=== PATIENT | female | born 1960 | race Caucasian/White ===

== ENCOUNTER 2017-03-28 11:55 | Outpatient (RCR) | payer BC, MEDICARE ==
[2016-01-11 12:16] VITALS: Ht 170.2 cm; Wt 68.3 kg
[2017-03-11 10:35] VITALS: BP 129/59
--- NOTE | 2017-03-13 11:41 | ONCOLOGY FOLLOW UP NOTE ---
EVENT DATE: March 11, 2017 DIAGNOSES 1. Pancytopenia. 2. Microcytic anemia. 3. Thrombocytopenia. 4. Systemic lupus erythematosus/rheumatoid arthritis. 5. Seizure disorder. 6. Hypothyroidism. 7. History of deep venous thrombosis and pulmonary embolis. CHIEF COMPLAINT Patient is here today for followup of her pancytopenia and iron deficiency. HEMATOLOGY HISTORY Juan Jose Lin is a 55-year-old female who has been diagnosed with systemic lupus/rheumatoid arthritis for the last fifteen years. The patient is aware she is anemic for the last year. She received iron supplement in the past without improvement. Her blood count on April 26, 2014 did reveal a white count of 3.6, hemoglobin 9.2, hematocrit 32, MCV 72.2 and platelets 99,000. Her creatinine is normal at 0.6. The patient currently is maintained on Plaquenil, methotrexate and Orencia. Iron studies showed a serum ferritin of 52 , within the normal range; serum iron 37; TIBC 311; iron saturation 11.9. Erythropoietin was a little high at 29, which is low for the degree of the anemia. Vitamin B12 level, methylmalonic acid assay, folate level, and red cell folate, all within normal range. Serum protein electrophoresis showed normal pattern. ESR was normal at 18. CBC showed a white count 2.9, hemoglobin 10.9, hematocrit 35.9, platelets 107,000. Soluble transferrin receptor assay came back high at 6.7 confirming he diagnosis of iron deficiency anemia. Flow cytometry of the peripheral blood did reveal mature T cells that show coag suppression of CD4 and CD8 which has uncertain significance as it is only 4% of the cells have this coag suppression and it could be present in 50% of otherwise healthy individuals. Ultrasound of spleen done on July 15, 2014 showed mild splenomegaly and splenic size was 14.5 cm. No splenic mass or perisplenic fluid collections. Bone marrow aspiration biopsy for evaluation of the pancytopenia done on December 04, 2014 did show normocellular bone marrow with cellularity 40-45% with megakaryocytic hyperplasia with ITP-like cytologic features. There is active normoblastic erythropoiesis and ongoing granulopoiesis with no dysmaturation and/or excess of blasts. There is mild polyclonal plasmocytosis. There is trace of reduced iron stores with no ringed sideroblast. No evidence of granulomas or metastatic neoplasm. HISTORY OF PRESENT ILLNESS Patient is here today for followup of her pancytopenia and iron deficiency anemia. She is doing fine currently. She has some occasional nausea and constipation. She has pain in her joints all over, but other than that she is feeling better and herself today. PAST MEDICAL HISTORY 1. Systemic lupus erythematosus/rheumatoid arthritis. 2. Anemia. 3. Seizure disorder. 4. Hypothyroidism. 5. History of DVT/PE. Her DVT was in the left lower extremity. PAST SURGICAL HISTORY 1. She had hysterectomy for cervical cancer in June of 1996. 2. Cholecystectomy in April of 2005. SOCIAL HISTORY The patient is . She has four children and two stepchildren. She is a housewife. Denies any abuse of tobacco, alcohol or drugs. FAMILY HISTORY Paternal grandmother had breast cancer and great-grandfather had melanoma. Father had skin cancer. CURRENT MEDICATIONS 1. Pradaxa 150 mg daily. 2. Levothyroxine 175 mcg daily. 3. Dilantin 100 mg two tablets daily. 4. Lasix 40 mg, 1-2 a day. 5. Plaquenil 200 mg twice daily. 6. Methotrexate 2.5 mg four tablets weekly. 7. Folic acid 400 mcg, six per week. 8. Mucinex 600 mg twice daily. 9. Orencia 125 mg shot every week. 10. Ibuprofen as needed. ALLERGIES PENICILLIN, which causes hives. SUDAFED, which causes seizures. REVIEW OF SYSTEMS CONSTITUTIONAL: No appetite or weight change. No fever, chills or sweating. No recent infection. HEENT: Ears: She has a right ear infection. Nose: She has nasal discharge. Throat: No sore throat or mouth ulcers. Eyes: No diplopia or visual changes. RESPIRATORY: She has cough with expectoration, shortness of breath and wheezing. CARDIOVASCULAR: She has worsening swelling in her lower extremities. GASTROINTESTINAL: Patient has occasional nausea and constipation. GENITOURINARY: No hematuria or dysuria. MUSCULOSKELETAL: She has pain all over her joints. NEUROLOGICAL: No tingling or numbness in the hands or feet. No headaches or convulsions. HEMATOLOGIC/LYMPHATIC: She is weak, tired and fatigued. No enlarged lymph nodes. SKIN: No skin rash or lumps. PSYCHIATRIC: No anxiety or depression. PHYSICAL EXAMINATION GENERAL: Looks stable. Well-developed, well-nourished, and in no acute distress. VITAL SIGNS: Blood pressure 129/59, pulse 89 per minute, respirations 16 per minute, temperature 98.7, pulse ox 96% on 1.5L oxygen. HEENT: Head: Atraumatic. No sinus tenderness to palpation. Eyes: No icterus or conjunctivitis. Mouth and throat: No oral thrush or mucositis. NECK: Supple. No cervical or supraclavicular lymphadenopathy. LUNGS: Clear to auscultation and percussion bilaterally. HEART: Regular rate and rhythm. No gallops, murmurs, clicks or rubs. ABDOMEN: Soft and lax. No tenderness. No hepatosplenomegaly. No masses. EXTREMITIES: There is bilateral extensive leg edema. LYMPHATICS: No peripheral lymphadenopathy. NEUROLOGICAL: Conscious, alert and oriented times three. No focal motor or sensory deficits. PSYCHIATRIC: Mood and affect appear normal. SKIN: No skin rash, bruise or purpuric eruption. DIAGNOSTIC DATA CBC shows white count 6.8, hemoglobin 14.7, hematocrit 44 and platelets 80,000. Chemistry panel normal, except sodium 134, chloride 94, carbon dioxide 33. Serum ferritin is high at 296, serum iron 41, TIBC 355, iron saturation 19.4%. ASSESSMENT 1. Pancytopenia with leukopenia, thrombocytopenia with normal workup with B12, folate and methylmalonic acid assay, red cell folate and serum protein electrophoresis. Ultrasound of the abdomen showed mild splenomegaly with spleen size 14.5 cm. Bone marrow aspiration biopsy did not show any evidence of myelodysplastic syndrome, leukemia, lymphoma or bone marrow infiltration. There was megakaryocytic hyperplasia consistent with peripheral destruction of the platelets, which could be due to ITP or splenomegaly. Current platelet count is 80,000, up from 61,000. Her white count currently is 6.8, which is up from 3.8, and hemoglobin normalized currently 14.7, up from 11.5. I am planning to continue followup. I will see her again in three months with CBC, iron studies with ferritin at that time. 2. Iron deficiency anemia with high soluble transferrin receptor assay at 6.7. Patient received Injectafer with normalization of her iron studies and hemoglobin. We will continue to monitor her iron studies with her next visit in three months. 3. Systemic lupus erythematosus/rheumatoid arthritis, currently on treatment. 4. Seizure disorder, on Dilantin. 5. Hypothyroidism, on supplement. 6. History of deep venous thrombosis, left lower extremity and pulmonary embolism. PLAN 1. Continue followup. 2. Patient to return in three months with CBC, iron studies with ferritin. 3. Patient is to contact us for any new concerns or complaints. MTDD
[2017-03-14 09:10] VITALS: BP 121/72
[2017-03-14 09:43] LABS: PLATELET COUNT, AUTOMATED 88 K/uL (150-450)
[2017-03-14] MEDS: ACETAMINOPHEN 325 MG TAB PO PRN (09:55)
[2017-03-14] MEDS: diphenhydrAMINE 25 MG CAP PO PRN (09:55)
[2017-03-14] MEDS: methylPREDNIS SUCC 125 MG/2ML IVP PRN (09:55)
[2017-03-14] MEDS: LIDOCAINE/SOD BICARB 8.4% SYR ID PRN (09:56)
[~2017-03-28] VITALS: Ht 170.2 cm; Wt 68.3 kg
[~2017-03-28 11:55] MED LIST: ALEN70TA2 PO; AZIT-1 PO; BACDS PO; BUME1TAB19 PO; CALC-748 PO; DABI150C3 PO; DEXTROSE 5%(*) 100 ML BAG 100 ML IVPB PRN; DICY-42 PO; DICY10CA11 PO; ENO100I SC; FERR-53 PO; FERR240T23 PO; FERR325T24 PO; FUR80 PO; FURO-47 PO; GUAI600T57 PO; GUALA600 PO; HCTZ25 PO; HYDR-385 PO; HYDR200T38 PO; HYDR200T42 PO; IBU200 PO; IBUP200C71 PO; LEFL20TA6 PO; LEV500 PO; LEVO-210 PO; LEVO-3 PO; LEVO150T78 PO; LEVO175T37 PO; LOR5/325 PO; LOR7.5/325 PO; METH2.5T43 PO; NS(*) 0.9% 100 ML BAG 100 ML IVPB PRN; OND4 PO; ONDA4TAB PO; ONDA4TAB97 PO; OXYC-854 PO; OXYC-865 PO; OXYGEN INH; OXYM22SP3 NS; PHEN100 PO; POTA-24 PO; PRE10 PO; PRED-420 PO; RIT100I IV; RIVA15TA PO; TRA50 PO; WAR25 PO; WAR5 PO; [UNRECOGNIZED DRUG - CODE] PO; [UNRECOGNIZED DRUG - CODE] PO; [UNRECOGNIZED DRUG - CODE] SQ; riTUXimab 500 MG/50 ML SDV 1,000 MG in NS(*) 0.9% 1000 ML BAG 900 ML IV ONE
[2017-03-28] MEDS: methylPREDNIS SUCC 125 MG/2ML IVP PRN (12:43)
[2017-03-28] MEDS: ACETAMINOPHEN 325 MG TAB PO PRN (12:43)
[2017-03-28] MEDS: diphenhydrAMINE 25 MG CAP PO PRN (12:43)
[2017-03-28 12:44] LABS: PLATELET COUNT, AUTOMATED 102 K/uL (150-450)
[2017-03-28] MEDS ORDERED: riTUXimab 500 MG/50 ML SDV 1,000 MG in NS(*) 0.9% 1000 ML BAG 900 ML IV ONE (13:15)
[2017-03-28 14:30] VITALS: BP 123/60
[2017-03-28 16:46] VITALS: BP 113/67
[2017-03-28] MEDS ORDERED: SPIR25TA78 PO (16:57)
[2017-03-28] MEDS: LIDOCAINE/SOD BICARB 8.4% SYR ID PRN (17:10)
[2017-05-13] MEDS ORDERED: METR-1 PO (16:26)
[2017-05-13] MEDS ORDERED: LEVO-85 PO (16:26)
[2017-05-24] MEDS ORDERED: PRED-416 PO (13:51)
[2017-05-24] MEDS ORDERED: LEVO150T78 PO (13:51)
[2017-05-24] MEDS ORDERED: SPIR50TA31 PO (13:51)
[2017-05-24] MEDS ORDERED: BUM2 PO (16:30)
[2017-05-25] MEDS ORDERED: LEVE500T73 PO (08:28)
== END 2017-06-08 ==
LOC: SPU 11:55
PROVIDERS: ATTEND Internal Medicine Hematology
DX: D61.818 Other pancytopenia (principal); D50.9 Iron deficiency anemia, unspecified; D69.6 Thrombocytopenia, unspecified; R16.1 Splenomegaly, not elsewhere classified; M32.9 Systemic lupus erythematosus, unspecified; M06.9 Rheumatoid arthritis, unspecified; E03.9 Hypothyroidism, unspecified; R53.1 Weakness; R53.83 Other fatigue; Z86.718 Personal history of other venous thrombosis and embolism; Z79.899 Other long term (current) drug therapy; G40.909 Epilepsy, unspecified, not intractable, without status epilepticus; R05 Cough; R06.02 Shortness of breath; R06.2 Wheezing
CPT/HCPCS: 82565; 84450; 85025; 85651; 96367; 96375; 96413; 96415; 99212; J2930; J7030; J7050; J9310; Q0163

== ENCOUNTER 2017-05-24 13:35 | Observation (INO) | payer BC, MEDICARE ==
[2016-01-11 12:16] VITALS: Ht 167.6 cm; Wt 69.5 kg
[~2017-05-24] VITALS: Ht 167.6 cm; Wt 69.5 kg
[~2017-05-24 13:35] MED LIST changes: -DEXTROSE 5%(*) 100 ML BAG 100 ML IVPB PRN; +LEVO-85 PO; +METR-1 PO; -NS(*) 0.9% 100 ML BAG 100 ML IVPB PRN; +SPIR25TA78 PO; -riTUXimab 500 MG/50 ML SDV 1,000 MG in NS(*) 0.9% 1000 ML BAG 900 ML IV ONE
[2017-05-24] MEDS ORDERED: SPIR50TA31 PO (13:51)
[2017-05-24] MEDS ORDERED: PRED-416 PO (13:51)
[2017-05-24] MEDS ORDERED: LEVO150T78 PO (13:51)
--- NOTE | 2017-05-24 14:07 | EKG ---
FACILITY: [facility] PATIENT NAME: STEPHANI SHAW : [id number] MR: [id number] V: [id number] EXAM DATE: ORDERING PHYSICIAN: EMELIA WADSWORTH TECHNOLOGIST: Alex Woody Reason : Blood Pressure : / mmHG Vent. Rate : 087 BPM Atrial Rate : 087 BPM P-R Int : 140 ms QRS Dur : 088 ms QT Int : 408 ms P-R-T Axes : 034 -04 -08 degrees QTc Int : 490 ms Normal sinus rhythm Left atrial enlargement Possible Inferior infarct , age undetermined T flattening consistent with inferior ischemia vs normal variant When compared with ECG of 17-JAN-2017 12:06, Nonspecific T wave abnormality no longer evident in Anterior leads Confirmed by BENJI QUIROGA ([id number]) on 05/25/2017 1:54:32 AM Referred By: Confirmed By:BENJI QUIROGA
[2017-05-24] MEDS ORDERED: LORazepam 2 MG/ML VIAL IVP ONE (14:10)
--- NOTE | 2017-05-24 14:13 | ER Report ---
History and Physical Time Seen By MD: 14:12 Hx. of Stated Complaint: pt reports chest pain that started ~1100 HPI/ROS CHIEF COMPLAINT: Chest pain, occurred 1-2 hours after seizure HISTORY OF PRESENT ILLNESS: 56-year-old with remote history of seizure disorder as anoxia and medications due to: No seizure in 20 years presents with seizure > min, <10min per pt report, who looked at time which was around 1150. She denies urinary incontinence stool incontinence or tongue biting. She believes it was a generalized seizure can feel it coming on and started twisting to the right. She was in a lounge chair reclining with happened. She awoke and developed chest pain within a few hours. She has a history of congestive heart failure with normal ejection fraction. She sees a at [facility] for this. She is down 3 pounds in water weight and is on a sliding scale of bumetanide. She endorses generalized body aches and bilateral thigh aches since the seizure. She denies trauma. Her seizure was unwitnessed. REVIEW OF SYSTEMS: Constitutional: No fever, no chills. Eyes: No discharge. ENT: No sore throat. Cardiovascular: No chest pain, no palpitations. Respiratory: No cough, no shortness of breath. Gastrointestinal: No abdominal pain, no vomiting. Genitourinary: No hematuria. Musculoskeletal: Otherwise normal Skin: No rashes. Neurological: Mild headache. Allergies: Coded Allergies: Penicillins (Verified Allergy, Intermediate, HIVES, 05/24/17) pseudoephedrine (Verified Adverse Reaction, Severe, CAUSES SEIZURES, ) doxycycline (Verified Adverse Reaction, Intermediate, VOMITING, 05/24/17) Home Meds Active Scripts Metronidazole (FLAGYL) 500 Mg Tablet, 500 MG PO TID, #30 TAB Prov:[facility]- 05/13/17 Levofloxacin 500 Mg Tab (LEVAQUIN 500 MG TAB) 500 Mg Tablet, 500 MG PO DAILY, # 10 TAB Prov:[facility]- 05/13/17 Dicyclomine Hcl (BENTYL) 10 Mg Capsule, 10 MG PO QID Y for PAIN, #20 CAPSULE 0 Refills Prov:DELIA POSEY MD 09/21/16 Hydrocodone Bit/Acetaminophen (HYDROCODON-ACETAMINOPHEN 5-325) 1 Each Tablet, 1 EACH PO Q4H Y for PAIN, #12 TAB 0 Refills Prov:DELIA POSEY MD 09/21/16 Ondansetron (ZOFRAN ODT) 4 Mg Tab.rapdis, 4 MG PO Q6H Y for NAUSEA/VOMITING, # 20 TAB.LIZBETH 0 Refills Prov:DELIA POSEY MD 09/21/16 Reported Medications Bumetanide (BUMETANIDE) 2 Mg Tab, 2 MG PO QDAY, TAB 05/24/17 Spironolactone (SPIRONOLACTONE) 50 Mg Tablet, 50 MG PO BID 05/24/17 Prednisone (PREDNISONE) 5 Mg Tab.ds.pk, 5 MG PO QDAY 05/24/17 Levothyroxine Sodium (LEVOTHYROXINE SODIUM) 150 Mcg Tablet, 150 MCG PO QDAY 05/24/17 Rivaroxaban 15 Mg (XARELTO 15 MG) 15 Mg Tablet, 15 MG PO DAILY, TAB 03/11/17 Hydroxychloroquine Sulfate (PLAQUENIL) 200 Mg Tablet, 100 MG PO BID 09/21/16 Guaifenesin (MUCINEX) 600 Mg Tablet.er, 600 MG PO BID 08/05/16 Rituximab (RITUXAN) 100 Mg/10 Ml Soln, 100 MG IV 05/06/16 Ferrous Gluconate (IRON) 240 Mg Tablet, 65 MG PO DAILY 06/17/15 Oxygen (Oxygen) 2 L Inha, 1.5 L INH DAILY, 0 Refills 07/25/10 Discontinued Reported Medications Spironolactone (SPIRONOLACTONE) 25 Mg Tablet, 25 MG PO TID, TAB 03/28/17 Bumetanide (BUMETANIDE) 1 Mg Tablet, 2 MG PO BID 12/09/16 Prednisone 10 Mg Tab (PREDNISONE 10 MG TAB) 10 Mg Tab.ds.pk, 10 MG PO, TAB 08/05/16 Levothyroxine Sodium (LEVOTHYROXINE SODIUM) 100 Mcg Tablet, 200 MCG PO QDAY 06/17/15 Hx Smoking: No Smoking Status: Never Smoker Exposure to Second Hand Smoke?: No Hx Substance Use Disorder: No Hx Alcohol Use: No Constitutional Vital Sign - Last 24 Hours 05/24/17 05/24/17 05/24/17 05/24/17 13:35 13:35 13:40 13:45 Temp 99.1 Pulse 90 87 Resp 16 24 B/P (MAP) 124/76 124/76 (92) Pulse Ox 100 100 O2 Delivery Nasal Cannula O2 Flow Rate 1.5 05/24/17 05/24/17 05/24/17 05/24/17 13:50 13:55 14:00 14:05 Pulse 85 87 84 Resp 33 11 25 B/P (MAP) 100/61 (74) Pulse Ox 100 100 99 05/24/17 05/24/17 05/24/17 05/24/17 14:10 14:15 14:20 14:25 Pulse 85 83 83 80 Resp 19 25 27 19 Pulse Ox 100 100 100 100 05/24/17 05/24/17 05/24/17 05/24/17 14:30 14:35 14:40 14:45 Pulse 85 82 80 87 Resp 20 40 23 28 B/P (MAP) 110/60 (77) Pulse Ox 100 99 100 100 05/24/17 05/24/17 05/24/17 05/24/17 15:00 15:05 15:10 15:15 Pulse 82 80 76 84 Resp 22 21 19 28 B/P (MAP) 105/56 (72) Pulse Ox 99 99 100 100 05/24/17 05/24/17 05/24/17 05/24/17 15:20 15:30 15:35 15:40 Pulse 82 83 78 Resp 23 25 23 24 B/P (MAP) 107/50 (69) Pulse Ox 99 98 98 98 05/24/17 05/24/17 05/24/17 05/24/17 15:45 15:50 15:55 16:00 Pulse 78 79 87 84 Resp 16 19 35 22 B/P (MAP) 104/58 (73) Pulse Ox 99 98 97 98 05/24/1718 05/24/18 05/24/17 16:05 16:10 16:15 16:25 Pulse 80 83 85 86 Resp 24 24 22 31 Pulse Ox 97 98 97 98 05/24/05/24/18 05/24/18 05/24/17 16:30 16:35 16:40 16:45 Pulse 82 83 83 82 Resp 21 22 20 20 B/P (MAP) 100/57 (71) Pulse Ox 97 98 98 98 05/24/17 05/24/17 05/24/17 05/24/17 16:50 16:55 17:00 17:05 Pulse 81 84 86 88 Resp 23 19 20 16 B/P (MAP) 96/66 (76) Pulse Ox 97 97 96 97 05/24/17 05/24/17 05/24/17 05/24/17 17:10 17:15 17:20 17:25 Pulse 79 81 86 84 Resp 18 26 17 23 Pulse Ox 98 96 97 96 05/24/17 05/24/17 17:30 17:35 Pulse 81 86 Resp 24 21 B/P (MAP) 103/59 (74) Pulse Ox 97 97 Medical Decision Making Data Points Result Diagram: 05/24/17 1410 05/24/17 1410 Laboratory Hematology Test 05/24/17 14:10 05/24/17 15:29 Red Blood Count 4.57 M/uL (4.17-5.56) Mean Corpuscular Volume 92.5 fL (80.0-96.0) Mean Corpuscular Hemoglobin 31.5 pg (26.0-33.0) Mean Corpuscular Hemoglobin Concent 34.1 g/dL (32.0-36.0) Red Cell Distribution Width 13.9 % (11.5-14.5) Mean Platelet Volume 11.4 fL (7.2-11.1) Neutrophils (%) (Auto) 82.2 % (39.4-72.5) Lymphocytes (%) (Auto) 5.6 % (17.6-49.6) Monocytes (%) (Auto) 11.9 % (4.1-12.4) Eosinophils (%) (Auto) 0.0 % (0.4-6.7) Basophils (%) (Auto) 0.3 % (0.3-1.4) Nucleated RBC Relative Count (auto) 0.0 /100WBC Neutrophils # (Auto) 6.0 K/uL (2.0-7.4) Lymphocytes # (Auto) 0.4 K/uL (1.3-3.6) Monocytes # (Auto) 0.9 K/uL (0.3-1.0) Eosinophils # (Auto) 0.0 K/uL (0.0-0.5) Basophils # (Auto) 0.0 K/uL (0.0-0.1) Nucleated RBC Absolute Count (auto) 0.00 K/uL Peripheral Blood Smear Yes Y/N Prothrombin Time 19.2 seconds (12.0-14.4) Prothromb Time International Ratio 1.59 Activated Partial Thromboplast Time 26 seconds (23-35) Sodium Level 132 mmol/L (137-145) Potassium Level 3.3 mmol/L (3.5-5.0) Chloride Level 92 mmol/L (98-107) Carbon Dioxide Level 32 mmol/L (22-31) Blood Urea Nitrogen 13 mg/dl (7-18) Creatinine 0.70 mg/dl (0.52-1.04) Glomerular Filtration Rate Calc > 60.0 Random Glucose 137 mg/dl (75-110) Calcium Level 9.1 mg/dl (8.4-10.2) Total Bilirubin 0.8 mg/dl (0.2-1.3) Aspartate Amino Transf (AST/SGOT) 39 U/L (0-35) Alanine Aminotransferase (ALT/SGPT) 36 U/L (0-56) Alkaline Phosphatase 99 U/L (0-126) Troponin I 0.013 ng/ml B-Type Natriuretic Peptide 61 pg/ml (0-100) Total Protein 6.4 gm/dl (6.3-8.2) Albumin 3.3 g/dl (3.5-5.0) Urine Color Yellow Urine Clarity Clear Urine pH 6.0 pH (4.8-9.5) Urine Specific [place] 1.016 Urine Protein Negative mg/dL (NEGATIVE) Urine Glucose (UA) Negative mg/dL (NEGATIVE) Urine Ketones Negative mg/dL (NEGATIVE) Urine Blood Negative (NEGATIVE) Urine Nitrite Negative (NEGATIVE) Urine Bilirubin Negative (NEGATIVE) Urine Urobilinogen Negative mg/dL (0.2-1.9) Urine Leukocyte Esterase Small (NEGATIVE) Urine RBC 1 /HPF (0-2/HPF) Urine WBC 1 /HPF (0-5/HPF) Urine Squamous Epithelial Cells Many /LPF (</=FEW) Urine Bacteria Negative /HPF (NONE-FEW) Urine Hyaline Casts Few /LPF (NONE-FEW) Urine Mucus Few /HPF (NONE-FEW) Chemistry Test 05/24/17 14:10 05/24/17 15:29 White Blood Count 7.3 k/uL (4.5-11.0) Red Blood Count 4.57 M/uL (4.17-5.56) Hemoglobin 14.4 g/dL (12.0-16.0) Hematocrit 42.3 % (34.0-47.0) Mean Corpuscular Volume 92.5 fL (80.0-96.0) Mean Corpuscular Hemoglobin 31.5 pg (26.0-33.0) Mean Corpuscular Hemoglobin Concent 34.1 g/dL (32.0-36.0) Red Cell Distribution Width 13.9 % (11.5-14.5) Platelet Count 84 K/uL (150-450) Mean Platelet Volume 11.4 fL (7.2-11.1) Neutrophils (%) (Auto) 82.2 % (39.4-72.5) Lymphocytes (%) (Auto) 5.6 % (17.6-49.6) Monocytes (%) (Auto) 11.9 % (4.1-12.4) Eosinophils (%) (Auto) 0.0 % (0.4-6.7) Basophils (%) (Auto) 0.3 % (0.3-1.4) Nucleated RBC Relative Count (auto) 0.0 /100WBC Neutrophils # (Auto) 6.0 K/uL (2.0-7.4) Lymphocytes # (Auto) 0.4 K/uL (1.3-3.6) Monocytes # (Auto) 0.9 K/uL (0.3-1.0) Eosinophils # (Auto) 0.0 K/uL (0.0-0.5) Basophils # (Auto) 0.0 K/uL (0.0-0.1) Nucleated RBC Absolute Count (auto) 0.00 K/uL Peripheral Blood Smear Yes Y/N Prothrombin Time 19.2 seconds (12.0-14.4) Prothromb Time International Ratio 1.59 Activated Partial Thromboplast Time 26 seconds (23-35) Glomerular Filtration Rate Calc > 60.0 Calcium Level 9.1 mg/dl (8.4-10.2) Total Bilirubin 0.8 mg/dl (0.2-1.3) Aspartate Amino Transf (AST/SGOT) 39 U/L (0-35) Alanine Aminotransferase (ALT/SGPT) 36 U/L (0-56) Alkaline Phosphatase 99 U/L (0-126) Troponin I 0.013 ng/ml B-Type Natriuretic Peptide 61 pg/ml (0-100) Total Protein 6.4 gm/dl (6.3-8.2) Albumin 3.3 g/dl (3.5-5.0) Urine Color Yellow Urine Clarity Clear Urine pH 6.0 pH (4.8-9.5) Urine Specific [place] 1.016 Urine Protein Negative mg/dL (NEGATIVE) Urine Glucose (UA) Negative mg/dL (NEGATIVE) Urine Ketones Negative mg/dL (NEGATIVE) Urine Blood Negative (NEGATIVE) Urine Nitrite Negative (NEGATIVE) Urine Bilirubin Negative (NEGATIVE) Urine Urobilinogen Negative mg/dL (0.2-1.9) Urine Leukocyte Esterase Small (NEGATIVE) Urine RBC 1 /HPF (0-2/HPF) Urine WBC 1 /HPF (0-5/HPF) Urine Squamous Epithelial Cells Many /LPF (</=FEW) Urine Bacteria Negative /HPF (NONE-FEW) Urine Hyaline Casts Few /LPF (NONE-FEW) Urine Mucus Few /HPF (NONE-FEW) Coagulation Test 05/24/17 14:10 Prothrombin Time 19.2 seconds Prothromb Time International Ratio 1.59 Activated Partial Thromboplast Time 26 seconds Urinalysis Test 05/24/17 15:29 Urine Color Yellow Urine Clarity Clear Urine pH 6.0 pH (4.8-9.5) Urine Specific [place] 1.016 Urine Protein Negative mg/dL (NEGATIVE) Urine Glucose (UA) Negative mg/dL (NEGATIVE) Urine Ketones Negative mg/dL (NEGATIVE) Urine Blood Negative (NEGATIVE) Urine Nitrite Negative (NEGATIVE) Urine Bilirubin Negative (NEGATIVE) Urine Urobilinogen Negative mg/dL (0.2-1.9) Urine Leukocyte Esterase Small (NEGATIVE) Urine RBC 1 /HPF (0-2/HPF) Urine WBC 1 /HPF (0-5/HPF) Urine Squamous Epithelial Cells Many /LPF (</=FEW) Urine Bacteria Negative /HPF (NONE-FEW) Urine Hyaline Casts Few /LPF (NONE-FEW) Urine Mucus Few /HPF (NONE-FEW) EKG/Imaging EKG Interpretation EKG was performed at 1343 and read by me normal sinus rhythm rate of [address] QRS and QTc intervals no ST or T-wave changes to suggest acute ischemia or infarction. Subsequent EKG at 1417 was unchanged. ED Course/Re-evaluation ED Course Plan of care was discussed and agreed upon with patient and prior to to initiation of orders. 05/24/2017 4:14:54 pm headache, ongoing nausea and worsening chest pain described by patient. No recurrent seizures in the ER. Aspirin 324 to chew, CT negative for acute pathology. 2nd dose of Zofran and 4 volumes of morphine ordered for pain. Lab results discussed. Decision to Disposition Date: May 24, 2017 Decision to Disposition Time: 17:51 Depart Departure Latest Vital Signs Vital Signs Date Time Temp Pulse Resp B/P (MAP) Pulse Ox O2 Delivery O2 Flow Rate FiO2 05/24/17 17:35 86 21 97 05/24/17 17:30 103/59 (74) 05/24/17 13:35 1.5 05/24/17 13:35 99.1 Nasal Cannula Impression: Primary Impression: Seizure disorder Additional Impressions: Chest pain Vomiting Condition: Improved Disposition: Admitted from ER Referrals: ZOHREH QUIJANO DO (PCP) Consult Note: Dr. Rashid Thapa was consulted and saw the patient in the emergency department. Problem Qualifiers VIVIENNE LEE MD May 24, 2017 14:13
--- NOTE | 2017-05-24 14:21 | EKG ---
FACILITY: [facility] PATIENT NAME: STEPHANI SHAW : [id number] MR: [id number] V: [id number] EXAM DATE: ORDERING PHYSICIAN: VIVIENNE LEE TECHNOLOGIST: Alex Woody Reason : Blood Pressure : / mmHG Vent. Rate : 083 BPM Atrial Rate : 083 BPM P-R Int : 144 ms QRS Dur : 086 ms QT Int : 416 ms P-R-T Axes : 036 -05 -08 degrees QTc Int : 488 ms Normal sinus rhythm Left atrial enlargement Possible Inferior infarct (cited on or before 24-MAY-2017) T flattening consistent with inferior ischemia vs normal variant When compared with ECG of 24-MAY-2017 13:43, No significant change was found Confirmed by BENJI QUIROGA ([id number]) on 05/25/2017 1:57:52 AM Referred By: Confirmed By:BENJI QUIROGA
[2017-05-24 14:24] LABS: PLATELET COUNT, AUTOMATED 84 K/uL (150-450)
[2017-05-24 14:31] LABS: INR 1.59
--- NOTE | 2017-05-24 15:17 | RADIOLOGY IMAGING REPORT ---
FACILITY: [facility] [place] PATIENT NAME: Juan Jose Lin : 1960 MR: [id number] V: [id number] EXAM DATE: ORDERING PHYSICIAN: VIVIENNE LEE TECHNOLOGIST: Location: [facility] [place] Patient: Juan Jose Lin : 1960 Visit/Account:[id number] Date of Sevice: 05/24/2017 Exam type: CHEST SINGLE AP History: wheezing, dyspnea; for edema Comparison: January 09, 2017. Findings: There is crowding of the bronchovascular markings bilaterally from a limited inspiratory effort. No acute appearing consolidation is identified within the lungs. This no evidence pleural effusion's or overt pulmonary edema. Cardiac silhouette appears normal in size IMPRESSION: 1. Hypoventilatory changes from a limited inspiratory effort although no gross evidence of acute pul monary consolidation Report Dictated By: Rebecca Jimenez MD at 05/24/2017 3:11 PM Report E-Signed By: Rebecca Jimenez MD at 05/24/2017 3:13 PM WSN:[email or web address]
--- NOTE | 2017-05-24 15:23 | RADIOLOGY IMAGING REPORT ---
FACILITY: [facility] PATIENT NAME: Juan Jose Lin : 1960 MR: [id number] V: [id number] EXAM DATE: ORDERING PHYSICIAN: VIVIENNE LEE TECHNOLOGIST: Location: Patient: Juan Jose Lin : 1960 Visit/Account:[id number] Date of Sevice: 05/24/2017 EXAMINATION: Head CT without intravenous contrast HISTORY: Headache. TECHNIQUE: Axial images were obtained from the skull base to the vertex without intravenous contrast . Sagittal and coronal reformatted images are also submitted. One of the following dose optimization techniques was utilized in the performance of this exam: Autom ated exposure control; adjustment of the mA and/or kV according to the patient's size; or use of an i terative reconstruction technique. Specific details can be referenced in the facility's radiology C T exam operational policy. COMPARISON: None. FINDINGS: Brain volume: Normal. Ventricles: Negative. Acute ischemic changes: None. Hemorrhage: None. Masses / edema: None. Sol-white: Negative. White matter: Negative. Vessels: Negative. Extra-axial: Negative. Calvarium / skull base: Negative. Visualized sinuses / orbits: Negative. IMPRESSION: Normal noncontrast head CT. Report Dictated By: Alistair Brian MD at 05/24/2017 3:15 PM Report E-Signed By: Alistair Brian MD at 05/24/2017 3:19 PM WSN:[email or web address]
[2017-05-24] MEDS ORDERED: ONDANSETRON 4 MG/2 ML VIAL IVP ONE (16:10)
[2017-05-24] MEDS ORDERED: ASPIRIN 81 MG CHEW PO ONE (16:15)
[2017-05-24] MEDS ORDERED: MORPHINE 2 MG/ML SYR IVP ONE (16:15)
[2017-05-24] MEDS ORDERED: BUM2 PO (16:30)
[2017-05-24] MEDS ORDERED: fentaNYL CITR 100 MCG/2 ML AMP IVP PRN (18:10)
[2017-05-24] MEDS ORDERED: levETIRAcetam(*)500 MG/5 ML VI 500 MG in NS(*) 0.9% 100 ML BAG 100 ML IV ONE (18:30)
[2017-05-24] MEDS ORDERED: DICYCLOMINE HCL 10 MG CAP PO PRN (19:35)
[2017-05-24] MEDS ORDERED: guaiFENesin 600 MG TABCR PO PRN (19:35)
[2017-05-24 20:00] VITALS: BP 107/65
--- NOTE | 2017-05-24 20:04 | History & Physical ---
History of Present Illness History of Present Illness 56yo female with a h/o seizures, preserved EF CHF, h/o PE, and h/o RA/SLE who came to the ER after a seizure. She was stopped on her Dilantin about 6 months ago because she hadn't had a seizure in about 20 years and there was concern that it would interact with her medications for CHF. She was started on Flagyl and Levofloxacin about 10 days ago for infectious colitis. She was doing well and was in her normal state of health this morning. At 10:50am, she was on the phone with her daughter when she felt like she was going to have a seizure. She ate some food and got her feet up, which has helped previously, but she still had a seizure. It was unwitnessed and it is unclear how long it lasted, but she remembers the clock at 11:00am when her daughter arrived. At about noon , she developed 9/10, sharp chest pain across her chest and into her left axilla. No nausea, diaphoresis or SOB. Moving her neck around helped with the pain. She decided to go to the ER. She report the pain as intermittent now. History Problems: (1) Rheumatoid arthritis Status: Chronic (2) Pancytopenia Status: Chronic (3) Lupus (systemic lupus erythematosus) Status: Chronic (4) History of pulmonary embolism Status: Chronic (5) Seizure disorder Status: Acute (6) History of cholecystectomy Status: Chronic (7) History of hysterectomy Status: Chronic (8) History of tonsillectomy Status: Chronic (9) Hypothyroid Status: Chronic Home Meds Active Scripts Metronidazole (FLAGYL) 500 Mg Tablet, 500 MG PO TID, #30 TAB Prov:YUE SHEEHAN [facility]- 05/13/17 Levofloxacin 500 Mg Tab (LEVAQUIN 500 MG TAB) 500 Mg Tablet, 500 MG PO DAILY, # 10 TAB Prov:YUE SHEEHAN [facility]- 05/13/17 Dicyclomine Hcl (BENTYL) 10 Mg Capsule, 10 MG PO QID Y for PAIN, #20 CAPSULE 0 Refills Prov:DELIA POSEY MD 09/21/16 Hydrocodone Bit/Acetaminophen (HYDROCODON-ACETAMINOPHEN 5-325) 1 Each Tablet, 1 EACH PO Q4H Y for PAIN, #12 TAB 0 Refills Prov:DELIA POSEY MD 09/21/16 Ondansetron (ZOFRAN ODT) 4 Mg Tab.rapdis, 4 MG PO Q6H Y for NAUSEA/VOMITING, # 20 TAB.LIZBETH 0 Refills Prov:DELIA POSEY MD 09/21/16 Reported Medications Bumetanide (BUMETANIDE) 2 Mg Tab, 2 MG PO QDAY, TAB 05/24/17 Spironolactone (SPIRONOLACTONE) 50 Mg Tablet, 50 MG PO BID 05/24/17 Prednisone (PREDNISONE) 5 Mg Tab.ds.pk, 5 MG PO QDAY 05/24/17 Levothyroxine Sodium (LEVOTHYROXINE SODIUM) 150 Mcg Tablet, 150 MCG PO QDAY 05/24/17 Rivaroxaban 15 Mg (XARELTO 15 MG) 15 Mg Tablet, 15 MG PO DAILY, TAB 03/11/17 Hydroxychloroquine Sulfate (PLAQUENIL) 200 Mg Tablet, 100 MG PO BID 09/21/16 Guaifenesin (MUCINEX) 600 Mg Tablet.er, 600 MG PO BID 08/05/16 Rituximab (RITUXAN) 100 Mg/10 Ml Soln, 100 MG IV 05/06/16 Ferrous Gluconate (IRON) 240 Mg Tablet, 65 MG PO DAILY 06/17/15 Oxygen (Oxygen) 2 L Inha, 1.5 L INH DAILY, 0 Refills 07/25/10 Discontinued Reported Medications Spironolactone (SPIRONOLACTONE) 25 Mg Tablet, 25 MG PO TID, TAB 03/28/17 Bumetanide (BUMETANIDE) 1 Mg Tablet, 2 MG PO BID 12/09/16 Prednisone 10 Mg Tab (PREDNISONE 10 MG TAB) 10 Mg Tab.ds.pk, 10 MG PO, TAB 08/05/16 Levothyroxine Sodium (LEVOTHYROXINE SODIUM) 100 Mcg Tablet, 200 MCG PO QDAY 06/17/15 Allergies: Coded Allergies: Penicillins (Verified Allergy, Intermediate, HIVES, 05/24/17) pseudoephedrine (Verified Adverse Reaction, Severe, CAUSES SEIZURES, ) doxycycline (Verified Adverse Reaction, Intermediate, VOMITING, 05/24/17) Patient History: FH: breast cancer Hx Smoking: No Smoking Status: Never Smoker Exposure to Second Hand Smoke?: No Caffeine Intake: Soda Caffeine/Cups Per Day: 0 Hx Alcohol Use: No Hx Substance Use Disorder: No Review of Systems All Systems Reviewed/Normal: Yes, Except as Noted Exam Vital Signs Vital Signs Date Time Temp Pulse Resp B/P (MAP) Pulse Ox O2 Delivery O2 Flow Rate FiO2 05/24/17 19:00 96 34 104/66 (79) 94 05/24/17 13:35 1.5 05/24/17 13:35 99.1 Nasal Cannula General Appearance: Alert, Awake, No Acute Distress Cardiovascular: Regular Rate and Rhythm Respiratory: Clear to Auscultation Chest: No Tenderness GI: Abd Soft and Non-Tender Extremities: No Edema Medical Decision Making Data Points Result Diagram: 05/24/17 1410 05/24/17 1410 Item Value Date Time Platelet Count 84 K/uL L 05/24/17 1410 Platelet Count 98 K/uL L 05/13/17 1424 Neutrophils (%) (Auto) 82.2 % H 05/24/17 1410 Lymphocytes (%) (Auto) 5.6 % L 05/24/17 1410 Neutrophils (%) (Auto) 82.5 % H 05/13/17 1424 Lymphocytes (%) (Auto) 11.6 % L 05/13/17 1424 Neutrophils (%) (Auto) 71.3 % 05/12/17 0904 Lymphocytes (%) (Auto) 18.6 % 05/12/17 0904 Neutrophils (%) (Auto) 89.7 % H 03/28/17 1225 Lymphocytes (%) (Auto) 5.3 % L 03/28/17 1225 Prothromb Time International Ratio 1.59 05/24/17 1410 Urine Leukocyte Esterase Small H 05/24/17 1529 Urine RBC 1 /HPF 05/24/17 1529 Urine WBC 1 /HPF 05/24/17 1529 Urine Squamous Epithelial Cells Many /LPF H 05/24/17 1529 Troponin I 0.013 ng/ml 05/24/17 1848 Troponin I 0.013 ng/ml 05/24/17 1410 B-Type Natriuretic Peptide 61 pg/ml 05/24/17 1410 Total Bilirubin 0.8 mg/dl 05/24/17 1410 Aspartate Amino Transf (AST/SGOT) 39 U/L H 05/24/17 1410 Alanine Aminotransferase (ALT/SGPT) 36 U/L 05/24/17 1410 Alkaline Phosphatase 99 U/L 05/24/17 1410 EKG / Imaging EKG Interpretation NSR, possible old inf [place], no ST abnormalities. Imaging CXR - 1. Hypoventilatory changes from a limited inspiratory effort although no gross evidence of acute pulmonary consolidation Head CT - Normal noncontrast head CT. Assessment and Plan Problems: (1) Seizure disorder Status: Acute Assessment & Plan: She presented with an unwitnessed seizure with no significant post-ictal state. She has a h/o a seizure disorder, but had been off Dilantin for about 6 months because she hasn't had a seizure in about 20 years. She was started on Levofloxacin and Flagyl about 10 days ago for colitis. Will stop them both as they both have rare associations with seizures. The symptoms leading up to the seizure and the seizure itself are like what she has had in the past. The head CT was wnl. Will start Keppra and give the first dose IV. (2) Chest pain Status: Acute Assessment & Plan: It seems to be muscular and related to the seizure. Troponin at 6 hours after was negative and the ECG didn't have any acute changes. She had a heart catheterization during the summer for work up of preserved EF CHF. Will watch on telemetry and check a troponin tomorrow. Fentanyl for acute pain and continue her usual [place]. (3) Colitis Status: Acute Assessment & Plan: She has nearly finished a 10 day course of Flagyl and Levofloxacin. Abdominal exam is benign. Will stop them both. (4) History of pulmonary embolism Status: Chronic Assessment & Plan: Continue Xarelto. (5) Lupus (systemic lupus erythematosus) Status: Chronic Assessment & Plan: Continue Plaquenil (6) Heart failure with preserved ejection fraction Status: Chronic Assessment & Plan: BNP wnl. No edema. Lungs clear. Continue Bumex and Spironolactone. (7) Pancytopenia Status: Chronic Assessment & Plan: Stable. Followed by Dr. Smith. (8) Hypothyroid Status: Chronic Assessment & Plan: Continue levothyroxine. Venous Thromboembolism Antithrombotics Is Pt On Any Antithrombotics?: Yes Exam Sepsis Risk: No Definite Risk BENJI QUIROGA MD May 24, 2017 20:04
[2017-05-24] MEDS ORDERED: METRONIDAZOLE 500 MG TABLET PO SCH (21:00)
[2017-05-24] MEDS: HYDROXYCHLOROQUINE 200 MG TAB PO SCH (21:12)
[2017-05-24] MEDS ORDERED: SPIRONOLACTONE 25 MG TAB PO ONE (21:30)
[2017-05-24] MEDS: APAP/HYDROCODONE 325/5 TAB PO PRN (21:34)
[2017-05-24 22:37] VITALS: BP 102/57
[2017-05-25 05:13] VITALS: BP 99/58
[2017-05-25] MEDS: APAP/HYDROCODONE 325/5 TAB PO PRN (06:05)
[2017-05-25] MEDS ORDERED: LEVOTHYROXINE SOD 0.150 MG TAB PO SCH (06:30)
[2017-05-25 06:57] LABS: PLATELET COUNT, AUTOMATED 64 K/uL (150-450)
[2017-05-25 07:48] VITALS: BP 98/55
[2017-05-25] MEDS ORDERED: LEVE500T73 PO (08:28)
--- NOTE | 2017-05-25 08:34 | Hospitalist Depart ---
Discharge Summary Reason for Hosp/Final Diag: (1) Seizure disorder Status: Acute Hospital Course & Plan: She presented with an unwitnessed seizure with no significant post-ictal state. She has a h/o a seizure disorder, but had been off Dilantin for about 6 months because she hasn't had a seizure in about 20 years. She was started on Levofloxacin and Flagyl about 10 days ago for colitis. They were stopped as they both have rare associations with seizures. The symptoms leading up to the seizure and the seizure itself are like what she has had in the past. The head CT was wnl. Keppra started. No further problems overnight. The patient is to follow up with her Neurologist about whether she should be on chronic medications and follow for this seizure. The patient expressed understanding that she is not to drive until cleared by Neurology. (2) Chest pain Status: Resolved Hospital Course & Plan: It seems to have been muscular and related to the seizure. It resolved last night. Troponins have been negative and ECG was without any gross abnormalities. She had a heart catheterization during the summer for work up of preserved EF CHF. (3) Colitis Status: Acute Hospital Course & Plan: She has nearly finished a 10 day course of Flagyl and Levofloxacin. Abdominal exam is benign. Will stop them both. (4) History of pulmonary embolism Status: Chronic Hospital Course & Plan: Continue Xarelto. (5) Lupus (systemic lupus erythematosus) Status: Chronic Hospital Course & Plan: Continue Plaquenil (6) Heart failure with preserved ejection fraction Status: Chronic Hospital Course & Plan: BNP wnl. No edema. Lungs clear. Continue Bumex and Spironolactone. (7) Pancytopenia Status: Chronic Hospital Course & Plan: Stable. Followed by Dr. Topete. (8) Hypothyroid Status: Chronic Hospital Course & Plan: Continue levothyroxine. Departure Weight (Pounds): 153 Weight (Ounces): 2.0 Result Diagram: 05/25/1760405/25/17604 Condition: Improved Discharge: Home Discharge Instructions Home Meds Active Scripts Levetiracetam (LEVETIRACETAM) 500 Mg Tablet, 500 MG PO BID, #60 Prov:BENJI QUIROGA MD 05/25/17 Dicyclomine Hcl (BENTYL) 10 Mg Capsule, 10 MG PO QID Y for PAIN, #20 CAPSULE 0 Refills Prov:DELIA POSEY MD 09/21/16 Hydrocodone Bit/Acetaminophen (HYDROCODON-ACETAMINOPHEN 5-325) 1 Each Tablet, 1 EACH PO Q4H Y for PAIN, #12 TAB 0 Refills Prov:DELIA POSEY MD 09/21/16 Ondansetron (ZOFRAN ODT) 4 Mg Tab.rapdis, 4 MG PO Q6H Y for NAUSEA/VOMITING, # 20 TAB.LIZBETH 0 Refills Prov:DELIA POSEY MD 09/21/16 Reported Medications Bumetanide (BUMETANIDE) 2 Mg Tab, 2 MG PO QDAY, TAB 05/24/17 Spironolactone (SPIRONOLACTONE) 50 Mg Tablet, 50 MG PO BID 05/24/17 Prednisone (PREDNISONE) 5 Mg Tab.ds.pk, 5 MG PO QDAY 05/24/17 Levothyroxine Sodium (LEVOTHYROXINE SODIUM) 150 Mcg Tablet, 150 MCG PO QDAY 05/24/17 Rivaroxaban 15 Mg (XARELTO 15 MG) 15 Mg Tablet, 15 MG PO DAILY, TAB 03/11/17 Hydroxychloroquine Sulfate (PLAQUENIL) 200 Mg Tablet, 100 MG PO BID 09/21/16 Guaifenesin (MUCINEX) 600 Mg Tablet.er, 600 MG PO BID 08/05/16 Rituximab (RITUXAN) 100 Mg/10 Ml Soln, 100 MG IV 05/06/16 Ferrous Gluconate (IRON) 240 Mg Tablet, 65 MG PO DAILY 06/17/15 Oxygen (Oxygen) 2 L Inha, 1.5 L INH DAILY, 0 Refills 07/25/10 Discontinued Reported Medications Spironolactone (SPIRONOLACTONE) 25 Mg Tablet, 25 MG PO TID, TAB 03/28/17 Bumetanide (BUMETANIDE) 1 Mg Tablet, 2 MG PO BID 12/09/16 Prednisone 10 Mg Tab (PREDNISONE 10 MG TAB) 10 Mg Tab.ds.pk, 10 MG PO, TAB 08/05/16 Levothyroxine Sodium (LEVOTHYROXINE SODIUM) 100 Mcg Tablet, 200 MCG PO QDAY 06/17/15 Discontinued Scripts Metronidazole (FLAGYL) 500 Mg Tablet, 500 MG PO TID, #30 TAB Prov:YUE SHEEHAN [facility] 12/22/17 Levofloxacin 500 Mg Tab (LEVAQUIN 500 MG TAB) 500 Mg Tablet, 500 MG PO DAILY, # 10 TAB Prov:YUE SHEEHAN [facility]- 05/13/17 Diet: Regular Activity: As Tolerated Special Instructions: No driving until cleared by Neurology Followup with Neurology in a couple of weeks. Go to the ER for seizure or chest pain Copies to: STEPHANIE TOPETE MD; TONY SCRUGGS MD; ZOHREH QUIJANO DO Venous Thromboembolism Antithrombotics Is Pt On Any Antithrombotics?: Yes BENJI QUIROGA MD May 25, 2017 08:34
[2017-05-25] MEDS: HYDROXYCHLOROQUINE 200 MG TAB PO SCH (08:46)
[2017-05-25] MEDS ORDERED: LEVOFLOXACIN 500 MG TAB PO SCH (09:00)
[2017-05-25] MEDS ORDERED: predniSONE 5 MG TAB PO SCH (09:00)
[2017-05-25] MEDS ORDERED: BUMETANIDE 2 MG TAB PO SCH (09:00)
[2017-05-25] MEDS ORDERED: RIVAROXABAN 10 MG TAB PO SCH ×2 (09:00→21:00)
[2017-05-25] MEDS ORDERED: levETIRAcetam 500 MG TAB PO SCH (09:00)
[2017-05-25] MEDS ORDERED: SPIRONOLACTONE 25 MG TAB PO SCH (09:00)
== END 2017-05-25 08:34 | disposition home or self-care (01) ==
LOC: ER 13:51 → INTOOBSV 18:15 → MED 18:15
PROVIDERS: ADMIT Internal Medicine; ATTEND Internal Medicine
DX: G40.909 Epilepsy, unspecified, not intractable, without status epilepticus (principal); R07.89 Other chest pain; R11.10 Vomiting, unspecified; K52.9 Noninfective gastroenteritis and colitis, unspecified; Z86.711 Personal history of pulmonary embolism; Z79.01 Long term (current) use of anticoagulants; M32.9 Systemic lupus erythematosus, unspecified; I50.32 Chronic diastolic (congestive) heart failure; D61.818 Other pancytopenia; E03.9 Hypothyroidism, unspecified
CPT/HCPCS: 36415; 70450; 71045; 81001; 83880; 84484; 85025; 85610; 85730; 93005; 96374; 99285; G0378; J1953; J2405; J3010; J7050; J7512; 82040; 82247; 82310; 82374; 82435; 82565; 82947; 84075; 84132; 84155; 84295; 84450; 84460; 84520

== ENCOUNTER → 2017-06-02 | Outpatient (CLI) | payer BC, MEDICARE ==
[2016-01-11 12:16] VITALS: BMI 31.5
[~2017-06-02] MED LIST changes: +BUM2 PO; +LEVE500T73 PO; +PRED-416 PO; +SPIR50TA31 PO
[2017-06-02 13:45] LABS: PLATELET COUNT, AUTOMATED 97 K/uL (150-450)
== END ==
LOC: LAB 13:18
PROVIDERS: ATTEND Internal Medicine Rheumatology
DX: M05.79 Rheumatoid arthritis with rheumatoid factor of multiple sites without organ or systems involvement (principal); Z79.899 Other long term (current) drug therapy
CPT/HCPCS: 82040; 82150; 82247; 82310; 82374; 82435; 82565; 82947; 83690; 84075; 84132; 84155; 84295; 84450; 84460; 84520; 85025; 85651

== ENCOUNTER → 2017-06-02 | Outpatient (CLI) | payer BC, MEDICARE ==
[2016-01-11 12:16] VITALS: BMI 31.5
== END ==
LOC: LAB 13:14
PROVIDERS: ATTEND Internal Medicine Cardiovascular Disease
DX: I50.32 Chronic diastolic (congestive) heart failure (principal)
CPT/HCPCS: 36415; 83880

== ENCOUNTER 2017-06-10 11:20 | Outpatient (RCR) | payer BC, MEDICARE ==
[2016-01-11 12:16] VITALS: Ht 167.6 cm; Wt 68.4 kg
[~2017-06-10] VITALS: Ht 167.6 cm; Wt 68.4 kg
[2017-06-10 11:30] VITALS: BP 113/66
--- NOTE | 2017-06-10 18:40 | ONCOLOGY FOLLOW UP NOTE ---
EVENT DATE: June 10, 2017 DIAGNOSES 1. Pancytopenia. 2. Microcytic anemia. 3. Thrombocytopenia. 4. Systemic lupus erythematosus/rheumatoid arthritis. 5. Seizure disorder. 6. Hypothyroidism. 7. History of deep venous thrombosis and pulmonary embolis. CHIEF COMPLAINT Patient is here today for followup of her pancytopenia and iron deficiency. HEMATOLOGY HISTORY Juan Jose Lin is a 55-year-old female who has been diagnosed with systemic lupus/rheumatoid arthritis for the last fifteen years. The patient is aware she is anemic for the last year. She received iron supplement in the past without improvement. Her blood count on April 26, 2014 did reveal a white count of 3.6, hemoglobin 9.2, hematocrit 32, MCV 72.2 and platelets 99,000. Her creatinine is normal at 0.6. The patient currently is maintained on Plaquenil, methotrexate and Orencia. Iron studies showed a serum ferritin of 52 , within the normal range; serum iron 37; TIBC 311; iron saturation 11.9. Erythropoietin was a little high at 29, which is low for the degree of the anemia. Vitamin B12 level, methylmalonic acid assay, folate level, and red cell folate, all within normal range. Serum protein electrophoresis showed normal pattern. ESR was normal at 18. CBC showed a white count 2.9, hemoglobin 10.9, hematocrit 35.9, platelets 107,000. Soluble transferrin receptor assay came back high at 6.7 confirming he diagnosis of iron deficiency anemia. Flow cytometry of the peripheral blood did reveal mature T cells that show coag suppression of CD4 and CD8 which has uncertain significance as it is only 4% of the cells have this coag suppression and it could be present in 50% of otherwise healthy individuals. Ultrasound of spleen done on July 15, 2014 showed mild splenomegaly and splenic size was 14.5 cm. No splenic mass or perisplenic fluid collections. Bone marrow aspiration biopsy for evaluation of the pancytopenia done on December 04, 2014 did show normocellular bone marrow with cellularity 40-45% with megakaryocytic hyperplasia with ITP-like cytologic features. There is active normoblastic erythropoiesis and ongoing granulopoiesis with no dysmaturation and/or excess of blasts. There is mild polyclonal plasmocytosis. There is trace of reduced iron stores with no ringed sideroblast. No evidence of granulomas or metastatic neoplasm. HISTORY OF PRESENT ILLNESS Patient is here today for followup of her pancytopenia and iron deficiency anemia. She is doing fine currently except for having constipation and pain in her back and shoulders. Patient does not have any other problem. PAST MEDICAL HISTORY 1. Systemic lupus erythematosus/rheumatoid arthritis. 2. Anemia. 3. Seizure disorder. 4. Hypothyroidism. 5. History of DVT/PE. Her DVT was in the left lower extremity. PAST SURGICAL HISTORY 1. She had hysterectomy for cervical cancer in June of 1996. 2. Cholecystectomy in April of 2005. SOCIAL HISTORY The patient is . She has four children and two stepchildren. She is a housewife. Denies any abuse of tobacco, alcohol or drugs. FAMILY HISTORY Paternal grandmother had breast cancer and great-grandfather had melanoma. Father had skin cancer. CURRENT MEDICATIONS 1. Pradaxa 150 mg daily. 2. Levothyroxine 175 mcg daily. 3. Dilantin 100 mg two tablets daily. 4. Lasix 40 mg, 1-2 a day. 5. Plaquenil 200 mg twice daily. 6. Methotrexate 2.5 mg four tablets weekly. 7. Folic acid 400 mcg, six per week. 8. Mucinex 600 mg twice daily. 9. Orencia 125 mg shot every week. 10. Ibuprofen as needed. ALLERGIES PENICILLIN, which causes hives. SUDAFED, which causes seizures. REVIEW OF SYSTEMS CONSTITUTIONAL: No appetite or weight change. No fever, chills or sweating. No recent infection. HEENT: Ears: She has a right ear infection. Nose: She has nasal discharge. Throat: No sore throat or mouth ulcers. Eyes: No diplopia or visual changes. RESPIRATORY: She has cough with expectoration, shortness of breath and wheezing. CARDIOVASCULAR: She has worsening swelling in her lower extremities. GASTROINTESTINAL: She has constipation. GENITOURINARY: No hematuria or dysuria. MUSCULOSKELETAL: She has pain in her back and shoulders. NEUROLOGICAL: No tingling or numbness in the hands or feet. No headaches or convulsions. HEMATOLOGIC/LYMPHATIC: She is weak, tired and fatigued. No enlarged lymph nodes. SKIN: No skin rash or lumps. PSYCHIATRIC: No anxiety or depression. PHYSICAL EXAMINATION GENERAL: Looks stable. Well-developed, well-nourished, and in no acute distress. VITAL SIGNS: Blood pressure 113/66, pulse 79 per minute, respirations 16 per minute, temperature 96.7, pulse ox 92% on 1.5L oxygen. HEENT: Head: Atraumatic. No sinus tenderness to palpation. Eyes: No icterus or conjunctivitis. Mouth and throat: No oral thrush or mucositis. NECK: Supple. No cervical or supraclavicular lymphadenopathy. LUNGS: Clear to auscultation and percussion bilaterally. HEART: Regular rate and rhythm. No gallops, murmurs, clicks or rubs. ABDOMEN: Soft and lax. No tenderness. No hepatosplenomegaly. No masses. EXTREMITIES: There is bilateral extensive leg edema. LYMPHATICS: No peripheral lymphadenopathy. NEUROLOGICAL: Conscious, alert and oriented times three. No focal motor or sensory deficits. PSYCHIATRIC: Mood and affect appear normal. SKIN: No skin rash, bruise or purpuric eruption. DIAGNOSTIC DATA CBC shows white count 5.6, hemoglobin 14.4, hematocrit 42.8 and platelets 97, 000. Chem panel totally normal, except chloride 95. ASSESSMENT 1. Pancytopenia with leukopenia, thrombocytopenia with normal workup with B12, folate and methylmalonic acid assay, red cell folate and serum protein immunoelectrophoresis. Ultrasound of the abdomen showed mild splenomegaly with spleen size 14.5 cm. Bone marrow aspiration biopsy did not show any evidence of myelodysplastic syndrome, leukemia, lymphoma or bone marrow infiltration. There was megakaryocytic hyperplasia consistent with peripheral destruction of the platelets, which could be due to her splenomegaly or ITP. Her current platelet count is 97,000, which is better than the last visit which was 80,000. Her hemoglobin is normal at 14.4 and current white count is 5.6. I am planning to see her again in November prior to the end of her insurance with CBC, chem panel and iron studies at that time. Her general condition and blood work are stable currently. 2. Iron deficiency with high soluble transferrin receptor assay at 6.7. Patient received Injectafer with normalization of her iron studies and hemoglobin. I am planning to check her iron studies with her next visit. 3. Systemic lupus erythematosus/rheumatoid arthritis, currently on treatment. 4. Seizure disorder on treatment. 5. Hypothyroidism on Synthroid. 6. History of deep venous thrombosis, left lower extremity and pulmonary embolism. PLAN 1. Continue followup. 2. Patient to return in November 2017 with CBC, chem panel, iron studies with ferritin. 3. Patient is to contact us for any new concern or complaints. [facility]
== END 2017-06-14 08:06 | disposition home or self-care (01) ==
LOC: ONC 11:20
PROVIDERS: ATTEND Internal Medicine Hematology
DX: D61.818 Other pancytopenia (principal); D50.9 Iron deficiency anemia, unspecified; D69.6 Thrombocytopenia, unspecified; M32.9 Systemic lupus erythematosus, unspecified; M06.9 Rheumatoid arthritis, unspecified; E03.9 Hypothyroidism, unspecified; Z86.718 Personal history of other venous thrombosis and embolism; K59.00 Constipation, unspecified; R53.1 Weakness; R53.83 Other fatigue
CPT/HCPCS: 99212

== ENCOUNTER → 2017-06-30 | Outpatient (CLI) | payer BC, MEDICARE ==
[2016-01-11 12:16] VITALS: BMI 31.5
[2017-06-30 14:36] LABS: PLATELET COUNT, AUTOMATED 104 K/uL (150-450)
== END ==
LOC: LAB 13:04
PROVIDERS: ATTEND Internal Medicine Rheumatology
DX: M05.79 Rheumatoid arthritis with rheumatoid factor of multiple sites without organ or systems involvement (principal); Z79.899 Other long term (current) drug therapy
CPT/HCPCS: 36415; 82040; 82150; 82247; 82310; 82374; 82435; 82565; 82947; 83690; 84075; 84132; 84155; 84295; 84450; 84460; 84520; 85025; 85651

== ENCOUNTER → 2017-08-22 | Outpatient (CLI) | payer BC, MEDICARE ==
[2016-01-11 12:16] VITALS: BMI 31.5
[~2017-08-22] MED LIST changes: -HYDR200T38 PO; +HYDR200T77 PO
== END ==
LOC: LAB 12:08
PROVIDERS: ATTEND Internal Medicine Cardiovascular Disease
DX: I50.32 Chronic diastolic (congestive) heart failure (principal)

== ENCOUNTER → 2017-08-22 | Outpatient (CLI) | payer BC, MEDICARE ==
[2016-01-11 12:16] VITALS: BMI 31.5
[2017-08-22 13:06] LABS: PLATELET COUNT, AUTOMATED 102 K/uL (150-450)
== END ==
LOC: LAB 12:04
PROVIDERS: ATTEND Internal Medicine Rheumatology
DX: M05.79 Rheumatoid arthritis with rheumatoid factor of multiple sites without organ or systems involvement (principal); Z79.899 Other long term (current) drug therapy
CPT/HCPCS: 36415; 82040; 82150; 82247; 82310; 82374; 82435; 82565; 82947; 83690; 84075; 84132; 84155; 84295; 84450; 84460; 84520; 85025; 85651

== ENCOUNTER → 2017-08-26 | Outpatient (CLI) | payer BC, MEDICARE ==
[2016-01-11 12:16] VITALS: BMI 31.5
--- NOTE | 2017-08-26 16:31 | RADIOLOGY IMAGING REPORT ---
FACILITY: [facility] [place] PATIENT NAME: Juan Jose Lin : 1960 MR: [id number] V: [id number] EXAM DATE: ORDERING PHYSICIAN: MARNI THORNTON TECHNOLOGIST: Location: [facility] [place] Patient: Juan Jose Lin : 1960 Visit/Account:[id number] Date of Sevice: 08/26/2017 CHEST W/O CONTRAST HISTORY: Pleural nodule TECHNIQUE: CT chest without intravenous contrast. Contiguous helical images was performed from the l ysabel apices to below the diaphragm. One of the following dose optimization techniques was utilized in the performance of this exam: Autom ated exposure control; adjustment of the mA and/or kV according to the patient's size; or use of an i terative reconstruction technique. Specific details can be referenced in the facility's radiology C T exam operational policy. CONTRAST: None. COMPARISON: CT scan 03/22/2017, CT scan 01/13/2011 FINDINGS: Heart/vessels: Ascending thoracic aorta is mildly ectatic measures 3 cm. Corresponding descending th oracic aorta measures 2 cm. There is calcified coronary atherosclerotic disease and calcification of the aortic valve. Mediastinum: Negative. Lymph nodes: Negative. Lungs/pleura: 4 mm left for lobe pleural-based micronodule image 54 is stable dating back to 2010. R ight lower lobe pleural-based nodule is less prominent than prior examination currently seen on image 56 measures 4 mm, previously 9 mm maximally. No concerning pulmonary nodules or masses. Visualized upper abdomen: Some mild thickening of the pylorus is unchanged from numerous prior studi es. Bones/soft tissues: Patient is osteopenic. There are new compression fractures of T6 and T7 involvin g 10% of the vertebral body height. IMPRESSION: 1. Stable 4 mm left upper lobe pleural-based nodule unchanged dating back to 2010. 2. Decrease in size of the pleural-based soft tissue at the medial right lung base likely representin g a pleural scar. 3. Patient is osteopenic. There are new compression fractures of T6 and T7 involving 10% of the verte bral body height. Report Dictated By: Carlos Steel MD at 08/26/2017 4:13 PM Report E-Signed By: Carlos Steel MD at 08/26/2017 4:27 PM WSN:[id number]
== END ==
LOC: CT 03:47
PROVIDERS: ATTEND Internal Medicine
DX: I25.10 Atherosclerotic heart disease of native coronary artery without angina pectoris (principal); I77.810 Thoracic aortic ectasia; R22.2 Localized swelling, mass and lump, trunk; M85.88 Other specified disorders of bone density and structure, other site
CPT/HCPCS: 71250

== ENCOUNTER → 2017-09-23 | Outpatient (CLI) | payer BC, MEDICARE ==
[2016-01-11 12:16] VITALS: BMI 31.5
== END ==
LOC: LAB 10:46
PROVIDERS: ATTEND Internal Medicine Cardiovascular Disease
DX: I50.32 Chronic diastolic (congestive) heart failure (principal)
CPT/HCPCS: 83880

== ENCOUNTER → 2017-09-23 | Outpatient (CLI) | payer BC, MEDICARE ==
[2016-01-11 12:16] VITALS: BMI 31.5
[2017-09-23 11:09] LABS: PLATELET COUNT, AUTOMATED 78 K/uL (150-450)
== END ==
LOC: LAB 10:42
PROVIDERS: ATTEND Internal Medicine Rheumatology
DX: M05.79 Rheumatoid arthritis with rheumatoid factor of multiple sites without organ or systems involvement (principal); Z79.899 Other long term (current) drug therapy
CPT/HCPCS: 36415; 82040; 82150; 82247; 82310; 82374; 82435; 82565; 82947; 83690; 84075; 84132; 84155; 84295; 84450; 84460; 84520; 85025; 85651

== ENCOUNTER → 2017-10-06 | Outpatient (CLI) | payer BC, MEDICARE ==
[2016-01-11 12:16] VITALS: BMI 31.5
== END ==
LOC: LAB 11:34
PROVIDERS: ATTEND Internal Medicine Cardiovascular Disease
DX: I50.32 Chronic diastolic (congestive) heart failure (principal)
CPT/HCPCS: 36415; 82310; 82374; 82435; 82565; 82947; 83880; 84132; 84295; 84520

== ENCOUNTER 2017-10-14 14:55 | Emergency (ER) | payer BC, MEDICARE ==
[2016-01-11 12:16] VITALS: Wt 71.7 kg
[2017-10-14] MEDS ORDERED: POTA20PA25 PO (15:06)
[2017-10-14] MEDS ORDERED: POTA10CA40 PO (15:06)
[2017-10-14] MEDS ORDERED: BUME1TAB19 PO (15:06)
[2017-10-14] MEDS ORDERED: FERR325T5 PO (15:06)
[2017-10-14] MEDS ORDERED: RIVA20TA PO (15:06)
[2017-10-14] MEDS ORDERED: ASPIRIN 81 MG CHEW PO ONE (15:15)
--- NOTE | 2017-10-14 15:21 | ER Report ---
History and Physical Time Seen By MD: 15:04 Hx. of Stated Complaint: REPORTS 8 POUND WEIGHT GAIN OVER LAST SEVERAL DAYS, INCREASED SOB AND "HEART TWINGES". HPI/ROS CHIEF COMPLAINT: Shortness of breath HISTORY OF PRESENT ILLNESS: This is a 56-year-old female who presents to the emergency department for shortness of breath. Patient states that she had an infusion recently for her rheumatoid arthritis, since then she's had some fluctuations in her weight. Patient states that last week or so she's had an increase in shortness of breath as well as increase in weight gain roughly 8 pounds the last several days. She also states that she had a heart twinge earlier today. The pain was transient. Patient denies nausea or vomiting. No rashes. No headaches. Patient has also increased her oxygen demand last week. Patient states she did talk to her ssn/ssbn assistant navigator and was recommended to come in for further evaluation she has been taking Bumex and felt that some IV furosemide with help. REVIEW OF SYSTEMS: Constitutional: No fever, no chills. Eyes: No discharge. ENT: No sore throat. Cardiovascular: As above. Respiratory: As above. Gastrointestinal: No abdominal pain, no vomiting. Genitourinary: No hematuria. Musculoskeletal: No back pain. Skin: No rashes. Neurological: No headache. Allergies: Coded Allergies: Penicillins (Verified Allergy, Intermediate, HIVES, 10/14/17) levofloxacin (Verified Allergy, Intermediate, SEIZURE, 10/14/17) metronidazole (Verified Allergy, Intermediate, SEIZURE, 10/14/17) morphine (Verified Allergy, Intermediate, NAUSEA , 10/14/17) WITH IV ROUTE promethazine (Verified Allergy, Mild, NAUSEA, 10/14/17) pseudoephedrine (Verified Adverse Reaction, Severe, CAUSES SEIZURES, ) doxycycline (Verified Adverse Reaction, Intermediate, VOMITING, 10/14/17) Home Meds Active Scripts Furosemide (FUROSEMIDE) 40 Mg Tablet, 1 TAB PO BID for 7 Days, #14 TAB 0 Refills Take one tablet in the AM, then a second in the early afternoon. Prov:YUE SHEEHAN RIVET SORTER-BC 10/14/17 Dicyclomine Hcl (BENTYL) 10 Mg Capsule, 10 MG PO QID Y for PAIN, #20 CAPSULE 0 Refills Prov:DELIA POSEY MD 09/21/16 Hydrocodone Bit/Acetaminophen (HYDROCODON-ACETAMINOPHEN 5-325) 1 Each Tablet, 1 EACH PO Q4H Y for PAIN, #12 TAB 0 Refills Prov:DELIA POSEY MD 09/21/16 Ondansetron (ZOFRAN ODT) 4 Mg Tab.rapdis, 4 MG PO Q6H Y for NAUSEA/VOMITING, # 20 TAB.LIZBETH 0 Refills Prov:DELIA POSEY MD 09/21/16 Reported Medications Rivaroxaban 20 Mg (XARELTO 20 MG) 20 Mg Tablet, 20 MG PO DAILY, TAB 10/14/17 Potassium Chloride (POTASSIUM CHLORIDE) 10 Meq Capsule.er, 20 MEQ PO DAILY 10/14/17 Ferrous Sulfate (FEOSOL) 325 Mg Tablet, 325 MG PO DAILY 10/14/17 Bumetanide (BUMETANIDE) 1 Mg Tablet, 1 MG PO BID 10/14/17 Bumetanide (BUMETANIDE) 2 Mg Tab, 2 MG PO QDAY, TAB 05/24/17 Spironolactone (SPIRONOLACTONE) 50 Mg Tablet, 50 MG PO BID 05/24/17 Prednisone (PREDNISONE) 5 Mg Tab.ds.pk, 5 MG PO QDAY 05/24/17 Levothyroxine Sodium (LEVOTHYROXINE SODIUM) 150 Mcg Tablet, 150 MCG PO QDAY 05/24/17 Hydroxychloroquine Sulfate (PLAQUENIL) 200 Mg Tablet, 200 MG PO BID 09/21/16 Guaifenesin (MUCINEX) 600 Mg Tablet.er, 600 MG PO BID 08/05/16 Rituximab (RITUXAN) 100 Mg/10 Ml Soln, 100 MG IV 05/06/16 Oxygen (Oxygen) 2 L Inha, 1.5 L INH DAILY, 0 Refills 07/25/10 Discontinued Reported Medications Potassium Chloride (POTASSIUM CHLORIDE) 20 Meq Packet, 20 MEQ PO QDAY, PACKET 10/14/17 Rivaroxaban 15 Mg (XARELTO 15 MG) 15 Mg Tablet, 15 MG PO DAILY, TAB 03/11/17 Ferrous Gluconate (IRON) 240 Mg Tablet, 65 MG PO DAILY 06/17/15 Discontinued Scripts Levetiracetam (LEVETIRACETAM) 500 Mg Tablet, 500 MG PO BID, #60 Prov:BENJI QUIROGA MD 05/25/17 Past Medical/Surgical History Patient has a past medical and surgical history of congestive heart failure, continuous oxygen use one and half to 2 L nasal cannula, pulmonary embolus, GERD , pancreatitis, cholecystectomy, arthritis, wears glasses, hypothyroid, rheumatoid arthritis, lupus, anemia, pancytopenia, cervical cancer, hysterectomy , tonsillectomy. Reviewed Nurses Notes: Yes Hx Smoking: No Smoking Status: Never Smoker Exposure to Second Hand Smoke?: No Hx Substance Use Disorder: No Hx Alcohol Use: No Constitutional Vital Sign - Last 24 Hours 10/14/17 10/14/17 10/14/17 10/14/17 14:59 14:59 15:00 15:15 Temp 98.0 Pulse 87 Resp 20 B/P (MAP) 113/73 113/73 (86) 115/78 (90) Pulse Ox 97 O2 Delivery Nasal Cannula O2 Flow Rate 1.5 10/14/17 10/14/17 10/14/17 10/14/17 15:30 15:45 16:15 16:30 Pulse 80 Resp 16 21 B/P (MAP) 108/59 (75) 106/90 (95) 108/60 (76) 104/71 (82) Pulse Ox 98 10/14/17 10/14/17 10/14/17 10/14/17 16:45 16:50 17:00 17:15 Pulse 86 Resp 17 B/P (MAP) 109/61 (77) 114/79 (91) 108/68 (81) Pulse Ox 98 10/14/17 10/14/17 10/14/17 10/14/17 17:20 17:30 17:45 18:00 Pulse 83 B/P (MAP) 107/68 (81) 111/72 (85) 106/65 (79) Pulse Ox 98 10/14/17 10/14/17 10/14/17 18:15 18:20 18:28 Pulse 79 Resp 22 B/P (MAP) 105/77 (86) 115/54 (74) Pulse Ox 98 Physical Exam General Appearance: The patient is alert, has no immediate need for airway protection and no signs of toxicity. Eyes: Pupils equal and round no pallor or injection. ENT, Mouth: Mucous membranes are moist. Respiratory: There are no retractions, coarse lung sounds in the bases, diminished throughout. Cardiovascular: Regular rate and rhythm, no murmurs, clicks or rubs. Gastrointestinal: Abdomen is soft and non tender, no masses, bowel sounds normal. Neurological: Alert and oriented 4. Moving all extremities. Following all commands. No focal neuro deficits. Skin: Warm and dry, no rashes. Mottling to her back, this is a normal variant of the patient. Musculoskeletal: Neck is supple non tender. Extremities are nontender, edema to the upper legs bilaterally, minimal edema below the knees, patient has been wearing compression stockings, full range of motion. CMS intact. DIFFERENTIAL DIAGNOSIS: After history and physical exam differential diagnosis was considered for shortness of breath including but not limited to pulmonary infectious process, COPD, asthma, pulmonary embolus and congestive heart failure. Medical Decision Making Data Points Result Diagram: 10/14/17 1543 10/14/17 1543 Laboratory Hematology Test 10/14/17 15:43 10/14/17 17:31 Red Blood Count 4.37 M/uL (4.17-5.56) Mean Corpuscular Volume 89.9 fL (80.0-96.0) Mean Corpuscular Hemoglobin 31.0 pg (26.0-33.0) Mean Corpuscular Hemoglobin Concent 34.5 g/dL (32.0-36.0) Red Cell Distribution Width 13.0 % (11.5-14.5) Mean Platelet Volume 11.1 fL (7.2-11.1) Neutrophils (%) (Auto) 82.6 % (39.4-72.5) Lymphocytes (%) (Auto) 9.4 % (17.6-49.6) Monocytes (%) (Auto) 7.4 % (4.1-12.4) Eosinophils (%) (Auto) 0.0 % (0.4-6.7) Basophils (%) (Auto) 0.6 % (0.3-1.4) Nucleated RBC Relative Count (auto) 0.0 /100WBC Neutrophils # (Auto) 5.4 K/uL (2.0-7.4) Lymphocytes # (Auto) 0.6 K/uL (1.3-3.6) Monocytes # (Auto) 0.5 K/uL (0.3-1.0) Eosinophils # (Auto) 0.0 K/uL (0.0-0.5) Basophils # (Auto) 0.0 K/uL (0.0-0.1) Nucleated RBC Absolute Count (auto) 0.00 K/uL Sodium Level 135 mmol/L (137-145) Potassium Level 4.3 mmol/L (3.5-5.0) Chloride Level 93 mmol/L (98-107) Carbon Dioxide Level 33 mmol/L (22-31) Blood Urea Nitrogen 15 mg/dl (7-18) Creatinine 0.80 mg/dl (0.52-1.04) Glomerular Filtration Rate Calc > 60.0 Random Glucose 105 mg/dl (75-110) Calcium Level 9.5 mg/dl (8.4-10.2) Total Bilirubin 0.8 mg/dl (0.2-1.3) Aspartate Amino Transf (AST/SGOT) 32 U/L (0-35) Alanine Aminotransferase (ALT/SGPT) 38 U/L (0-56) Alkaline Phosphatase 109 U/L (0-126) B-Type Natriuretic Peptide 117 pg/ml (0-100) Total Protein 6.6 gm/dl (6.3-8.2) Albumin 3.7 g/dl (3.5-5.0) Troponin I < 0.012 ng/ml Chemistry Test 10/14/17 15:43 10/14/17 17:31 White Blood Count 6.6 k/uL (4.5-11.0) Red Blood Count 4.37 M/uL (4.17-5.56) Hemoglobin 13.5 g/dL (12.0-16.0) Hematocrit 39.3 % (34.0-47.0) Mean Corpuscular Volume 89.9 fL (80.0-96.0) Mean Corpuscular Hemoglobin 31.0 pg (26.0-33.0) Mean Corpuscular Hemoglobin Concent 34.5 g/dL (32.0-36.0) Red Cell Distribution Width 13.0 % (11.5-14.5) Platelet Count 75 K/uL (150-450) Mean Platelet Volume 11.1 fL (7.2-11.1) Neutrophils (%) (Auto) 82.6 % (39.4-72.5) Lymphocytes (%) (Auto) 9.4 % (17.6-49.6) Monocytes (%) (Auto) 7.4 % (4.1-12.4) Eosinophils (%) (Auto) 0.0 % (0.4-6.7) Basophils (%) (Auto) 0.6 % (0.3-1.4) Nucleated RBC Relative Count (auto) 0.0 /100WBC Neutrophils # (Auto) 5.4 K/uL (2.0-7.4) Lymphocytes # (Auto) 0.6 K/uL (1.3-3.6) Monocytes # (Auto) 0.5 K/uL (0.3-1.0) Eosinophils # (Auto) 0.0 K/uL (0.0-0.5) Basophils # (Auto) 0.0 K/uL (0.0-0.1) Nucleated RBC Absolute Count (auto) 0.00 K/uL Glomerular Filtration Rate Calc > 60.0 Calcium Level 9.5 mg/dl (8.4-10.2) Total Bilirubin 0.8 mg/dl (0.2-1.3) Aspartate Amino Transf (AST/SGOT) 32 U/L (0-35) Alanine Aminotransferase (ALT/SGPT) 38 U/L (0-56) Alkaline Phosphatase 109 U/L (0-126) B-Type Natriuretic Peptide 117 pg/ml (0-100) Total Protein 6.6 gm/dl (6.3-8.2) Albumin 3.7 g/dl (3.5-5.0) Troponin I < 0.012 ng/ml EKG/Imaging EKG Interpretation 12 lead EKG: Time of EKG 1522. Rhythm: Normal sinus rhythm, ventricular rate 78 bpm. [place]: normal QRS: normal ST segments: No ST depression or elevation identified. No significant changes from the 05/24/2017 EKG other than poor T-wave progression in the new EKG in V3 V4 and V5, could be lead placement. Imaging CHEST PA AND LAT Indication: Chest Pain Comparison: Chest x-ray 05/24/2017 Findings: Lungs: Clear. Mediastinum/pulmonary vasculature: Heart size and pulmonary vasculature are normal. Bones/soft tissues: There is moderate thoracic kyphosis and generalized osteopenia. IMPRESSION: 1. Clear lungs. 2. Thoracic kyphosis with osteopenia. Report Dictated By: Meño Kennedy at 10/14/2017 4:32 PM Report E-Signed By: Meño Kennedy at 10/14/2017 4:33 PM WSN:[id number] ED Course/Re-evaluation Clinical Indication for ER IV: IV Access ED Course The patient was admitted to room. A history and physical were obtained. Differential diagnoses were considered. An IV was started. A CBC, CMP, troponin , BNP were obtained. Lab studies are unremarkable. Negative troponin, BNP within patient's normal limits. EKG showing normal sinus rhythm, no ST elevation or depression. Negative two-view chest x-ray. Repeat troponin was negative. Patient was given 40 mg IV Lasix, patient states after the Lasix and several times to the bathroom she is feeling less short of breath. I did review all the lab studies and the radiology reports with the patient. Patient was given a prescription for 40 mg twice a day Lasix for 7 days. Patient was instructed to call her ssn/ssbn assistant navigator on Tuesday, due to holiday Tuesday, for a follow-up phone call and possible appointment. The patient was also instructed to return to the emergency department for any other concerns or worsening symptoms. Patient states she is ready to go home. Patient had no other questions or concerns this time and was discharged. 10/14/2017 3:41:17 pm patient refused aspirin. Decision to Disposition Date: October 14, 2017 Decision to Disposition Time: 18:18 Depart Departure Latest Vital Signs Vital Signs Date Time Temp Pulse Resp B/P (MAP) Pulse Ox O2 Delivery O2 Flow Rate FiO2 10/14/17 18:28 115/54 (74) 10/14/17 18:20 79 22 98 10/14/17 14:59 98.0 Nasal Cannula 10/14/17 14:59 1.5 Impression: Primary Impression: CHF (congestive heart failure) Additional Impression: Lower extremity edema Condition: Improved Disposition: HOME OR SELF-CARE Referrals: ZOHREH QUIJANO DO (PCP) New Scripts Furosemide (FUROSEMIDE) 40 Mg Tablet 1 TAB PO BID for 7 Days, #14 TAB 0 Refills Take one tablet in the AM, then a second in the early afternoon. Prov: YUE SHEEHAN RIVET SORTER-BC 10/14/17 Patient Instructions: Congestive Heart Failure Zones, Heart Failure (ED) Additional Instructions: Drink the established amount of fluid your ssn/ssbn assistant navigator has outlined for you. Get plenty of rest. Continue your current medications. Take the Lasix, one tablet in the am then a second in the early afternoon. Call your ssn/ssbn assistant navigator first thing Tuesday to discuss a follow up appointment. Return to the ED for any other concerns or worsening symptoms. Problem Qualifiers Primary Impression: CHF (congestive heart failure) Heart failure type: unspecified Heart failure chronicity: acute on chronic Qualified Codes: I50.9 - Heart failure, unspecified YUE SHEEHAN-MITESH October 14, 2017 15:21
--- NOTE | 2017-10-14 15:28 | EKG ---
FACILITY: [facility] PATIENT NAME: STEPHANI SHAW : [id number] MR: [id number] V: [id number] EXAM DATE: ORDERING PHYSICIAN: YUE SHEEHAN TECHNOLOGIST: NIEVES Test Reason : SOB Blood Pressure : / mmHG Vent. Rate : 078 BPM Atrial Rate : 078 BPM P-R Int : 144 ms QRS Dur : 080 ms QT Int : 400 ms P-R-T Axes : 030 008 030 degrees QTc Int : 456 ms Normal sinus rhythm Possible Left atrial enlargement No ST-T abnormalities When compared with ECG of 24-MAY-2017 14:17, Borderline criteria for Inferior infarct are no longer present T wave inversion no longer evident in Inferior leads Confirmed by BENJI QUIROGA ([id number]) on 10/14/2017 6:18:31 PM Referred By: DAINA Confirmed By:BENJI QUIROGA
[2017-10-14 16:01] LABS: PLATELET COUNT, AUTOMATED 75 K/uL (150-450)
--- NOTE | 2017-10-14 16:38 | RADIOLOGY IMAGING REPORT ---
FACILITY: [facility] - [place] PATIENT NAME: Juan Jose Lin : 1960 MR: [id number] V: [id number] EXAM DATE: ORDERING PHYSICIAN: YUE SHEEHAN TECHNOLOGIST: Location: [facility] Patient: Juan Jose Lin : 1960 Visit/Account:[id number] Date of Sevice: 10/14/2017 CHEST PA AND LAT Indication: Chest Pain Comparison: Chest x-ray 05/24/2017 Findings: Lungs: Clear. Mediastinum/pulmonary vasculature: Heart size and pulmonary vasculature are normal. Bones/soft tissues: There is moderate thoracic kyphosis and generalized osteopenia. IMPRESSION: 1. Clear lungs. 2. Thoracic kyphosis with osteopenia. Report Dictated By: Meño Kennedy at 10/14/2017 4:32 PM Report E-Signed By: Meño Kennedy at 10/14/2017 4:33 PM WSN:[id number]
[2017-10-14] MEDS ORDERED: FUROSEMIDE 40 MG/4 ML VIAL IVP ONE (16:40)
[2017-10-14] MEDS ORDERED: FURO-47 PO (18:20)
[2017-10-14 18:28] VITALS: BP 115/54
== END 2017-10-14 18:33 | disposition home or self-care (01) ==
LOC: ER 14:56
DX: I50.9 Heart failure, unspecified (principal); R60.0 Localized edema
CPT/HCPCS: 36415; 71046; 83880; 84484; 85025; 93005; 96374; 99284; J1940; 82040; 82247; 82310; 82374; 82435; 82565; 82947; 84075; 84132; 84155; 84295; 84450; 84460; 84520

== ENCOUNTER → 2017-10-20 | Outpatient (CLI) | payer BC, MEDICARE ==
[2016-01-11 12:16] VITALS: BMI 31.5
[~2017-10-20] MED LIST changes: +FERR325T5 PO; +POTA10CA40 PO; +POTA20PA25 PO; +RIVA20TA PO
== END ==
LOC: LAB 13:57
PROVIDERS: ATTEND Internal Medicine Cardiovascular Disease
DX: I50.32 Chronic diastolic (congestive) heart failure (principal)
CPT/HCPCS: 36415; 82310; 82374; 82435; 82565; 82947; 83880; 84132; 84295; 84520

== ENCOUNTER → 2017-10-28 | Outpatient (CLI) | payer BC, MEDICARE ==
[2016-01-11 12:16] VITALS: BMI 31.5
== END ==
LOC: LAB 12:10
PROVIDERS: ATTEND Internal Medicine Cardiovascular Disease
DX: I50.32 Chronic diastolic (congestive) heart failure (principal)
CPT/HCPCS: 83880

== ENCOUNTER → 2017-10-28 | Outpatient (CLI) | payer BC, MEDICARE ==
[2016-01-11 12:16] VITALS: BMI 31.5
[2017-10-28 12:34] LABS: PLATELET COUNT, AUTOMATED 101 K/uL (150-450)
== END ==
LOC: LAB 12:14
PROVIDERS: ATTEND Internal Medicine Rheumatology
DX: M05.79 Rheumatoid arthritis with rheumatoid factor of multiple sites without organ or systems involvement (principal); Z79.899 Other long term (current) drug therapy
CPT/HCPCS: 36415; 82040; 82150; 82247; 82310; 82374; 82435; 82565; 82947; 83690; 84075; 84132; 84155; 84295; 84450; 84460; 84520; 85025; 85651

== ENCOUNTER 2017-10-29 19:03 | Emergency (ER) | payer BC, MEDICARE ==
[2016-01-11 12:16] VITALS: Wt 68.5 kg
--- NOTE | 2017-10-29 19:24 | ER Report ---
History and Physical Time Seen By MD: 19:23 Hx. of Stated Complaint: pt reports diffuse abdominal pain, poor appetite, similar to past pancreatitis attacks HPI/ROS CHIEF COMPLAINT: Abdominal pain HISTORY OF PRESENT ILLNESS: This is a 57-year-old female who presents to the emergency department with her for concerns of pancreatitis. Patient states that she's had epigastric and back pain for "some time now". Patient states that this is a fairly typical presentation for her pancreatitis. Patient states that she did try have the Gonzales at home with little to no relief. Patient also states that she has intermittent constipation and has not had a regular bowel movement for some time. Patient denies fevers, chills, chest pain or shortness of breath, rashes. REVIEW OF SYSTEMS: Constitutional: No fever, no chills. Eyes: No discharge. ENT: No sore throat. Cardiovascular: No chest pain, no palpitations. Respiratory: No cough, no shortness of breath. Gastrointestinal: As above. Genitourinary: No hematuria. Musculoskeletal: As above. Skin: No rashes. Neurological: No headache. Allergies: Coded Allergies: Penicillins (Verified Allergy, Intermediate, HIVES, 10/14/17) levofloxacin (Verified Allergy, Intermediate, SEIZURE, 10/14/17) metronidazole (Verified Allergy, Intermediate, SEIZURE, 10/14/17) morphine (Verified Allergy, Intermediate, NAUSEA , 10/14/17) WITH IV ROUTE promethazine (Verified Allergy, Mild, NAUSEA, 10/14/17) pseudoephedrine (Verified Adverse Reaction, Severe, CAUSES SEIZURES, ) doxycycline (Verified Adverse Reaction, Intermediate, VOMITING, 10/14/17) Home Meds Active Scripts Dicyclomine Hcl (BENTYL) 10 Mg Capsule, 10 MG PO QID Y for PAIN, #20 CAPSULE 0 Refills Prov:DELIA POSEY MD 09/21/16 Hydrocodone Bit/Acetaminophen (HYDROCODON-ACETAMINOPHEN 5-325) 1 Each Tablet, 1 EACH PO Q4H Y for PAIN, #12 TAB 0 Refills Prov:DELIA POSEY MD 09/21/16 Ondansetron (ZOFRAN ODT) 4 Mg Tab.rapdis, 4 MG PO Q6H Y for NAUSEA/VOMITING, # 20 TAB.LIZBETH 0 Refills Prov:DELIA POSEY MD 09/21/16 Reported Medications Rivaroxaban 20 Mg (XARELTO 20 MG) 20 Mg Tablet, 20 MG PO DAILY, TAB 10/14/17 Potassium Chloride (POTASSIUM CHLORIDE) 10 Meq Capsule.er, 20 MEQ PO DAILY 10/14/17 Ferrous Sulfate (FEOSOL) 325 Mg Tablet, 325 MG PO DAILY 10/14/17 Bumetanide (BUMETANIDE) 1 Mg Tablet, 1 MG PO BID 10/14/17 Bumetanide (BUMETANIDE) 2 Mg Tab, 2 MG PO QDAY, TAB 05/24/17 Spironolactone (SPIRONOLACTONE) 50 Mg Tablet, 50 MG PO BID 05/24/17 Prednisone (PREDNISONE) 5 Mg Tab.ds.pk, 5 MG PO QDAY 05/24/17 Levothyroxine Sodium (LEVOTHYROXINE SODIUM) 150 Mcg Tablet, 150 MCG PO QDAY 05/24/17 Hydroxychloroquine Sulfate (PLAQUENIL) 200 Mg Tablet, 200 MG PO BID 09/21/16 Guaifenesin (MUCINEX) 600 Mg Tablet.er, 600 MG PO BID 08/05/16 Rituximab (RITUXAN) 100 Mg/10 Ml Soln, 100 MG IV 05/06/16 Oxygen (Oxygen) 2 L Inha, 1.5 L INH DAILY, 0 Refills 07/25/10 Discontinued Scripts Furosemide (FUROSEMIDE) 40 Mg Tablet, 1 TAB PO BID for 7 Days, #14 TAB 0 Refills Take one tablet in the AM, then a second in the early afternoon. Prov:AGUILAYUE L ADDICTION SPECIALIST-BC 10/14/17 Past Medical/Surgical History Patient has a past medical and surgical history of seizures, CHF, COPD, pulmonary embolus, pancreatitis, gallbladder disease, cholecystectomy, arthritis , wears glasses, hypothyroidism, rheumatoid arthritis, lupus, anemia, pancytopenia, chronic bruising on the back, cervical cancer, hysterectomy, tonsillectomy. Reviewed Nurses Notes: Yes Hx Smoking: No Smoking Status: Never Smoker Exposure to Second Hand Smoke?: No Hx Substance Use Disorder: No Hx Alcohol Use: No Constitutional Vital Sign - Last 24 Hours 10/29/17 10/29/17 10/29/17 10/29/17 19:08 19:10 19:18 19:30 Temp 98.1 Pulse 76 87 Resp 16 B/P (MAP) 140/80 (100) 124/74 121/96 (104) Pulse Ox 96 95 O2 Delivery Room Air 10/29/17 10/29/17 10/29/17 10/29/17 19:33 19:48 20:00 20:05 Pulse 82 84 76 B/P (MAP) 126/91 (103) Pulse Ox 95 95 94 10/29/17 10/29/17 10/29/17 10/29/17 20:20 20:30 20:35 21:44 Pulse 73 74 77 B/P (MAP) 112/71 (85) 112/67 (82) Pulse Ox 93 95 98 O2 Delivery Nasal Cannula Intake and Output 10/29/17 10/29/17 10/30/17 14:59 22:59 06:59 Intake Total 600 ml Balance 600 ml Physical Exam General Appearance: The patient is alert, has no immediate need for airway protection and no signs of toxicity. Eyes: Pupils equal and round no pallor or injection. ENT, Mouth: Mucous membranes are moist. Respiratory: There are no retractions, lungs are clear to auscultation. Cardiovascular: Regular rate and rhythm, no murmurs, clicks or rubs. Gastrointestinal: Abdomen is soft and tenderness to the epigastric region to palpation. no masses, bowel sounds normal. No abdominal bruits. Neurological: Alert and oriented 4. Lovenox from these. Following all commands. No focal neuro deficits. Skin: Warm and dry, no rashes. Musculoskeletal: Neck is supple non tender. Extremities are nontender, nonswollen and have full range of motion. DIFFERENTIAL DIAGNOSIS: After history and physical exam differential diagnosis was considered for abdominal pain including but not limited to appendicitis, pancreatitis, cholecystitis, gastritis and urinary tract infection. Medical Decision Making Data Points Result Diagram: 10/29/17200010/29/172000 Laboratory Hematology Test 10/29/17 19:45 10/29/17 20:01 Urine Color Straw Urine Clarity Clear Urine pH 7.0 pH (4.8-9.5) Urine Specific Grace 1.005 Urine Protein Negative mg/dL (NEGATIVE) Urine Glucose (UA) Negative mg/dL (NEGATIVE) Urine Ketones Negative mg/dL (NEGATIVE) Urine Blood Negative (NEGATIVE) Urine Nitrite Negative (NEGATIVE) Urine Bilirubin Negative (NEGATIVE) Urine Urobilinogen Negative mg/dL (0.2-1.9) Urine Leukocyte Esterase Negative (NEGATIVE) Urine RBC <1 /HPF (0-2/HPF) Urine WBC 1 /HPF (0-5/HPF) Urine Squamous Epithelial Cells Many /LPF (</=FEW) Urine Bacteria Negative /HPF (NONE-FEW) Urine Mucus None /HPF (NONE-FEW) Red Blood Count 4.52 M/uL (4.17-5.56) Mean Corpuscular Volume 88.9 fL (80.0-96.0) Mean Corpuscular Hemoglobin 31.2 pg (26.0-33.0) Mean Corpuscular Hemoglobin Concent 35.2 g/dL (32.0-36.0) Red Cell Distribution Width 13.2 % (11.5-14.5) Mean Platelet Volume 10.8 fL (7.2-11.1) Neutrophils (%) (Auto) 77.1 % (39.4-72.5) Lymphocytes (%) (Auto) 12.5 % (17.6-49.6) Monocytes (%) (Auto) 10.0 % (4.1-12.4) Eosinophils (%) (Auto) 0.1 % (0.4-6.7) Basophils (%) (Auto) 0.3 % (0.3-1.4) Nucleated RBC Relative Count (auto) 0.1 /100WBC Neutrophils # (Auto) 4.8 K/uL (2.0-7.4) Lymphocytes # (Auto) 0.8 K/uL (1.3-3.6) Monocytes # (Auto) 0.6 K/uL (0.3-1.0) Eosinophils # (Auto) 0.0 K/uL (0.0-0.5) Basophils # (Auto) 0.0 K/uL (0.0-0.1) Nucleated RBC Absolute Count (auto) 0.00 K/uL Sodium Level 135 mmol/L (137-145) Potassium Level 4.2 mmol/L (3.5-5.0) Chloride Level 94 mmol/L (98-107) Carbon Dioxide Level 31 mmol/L (22-31) Blood Urea Nitrogen 17 mg/dl (7-18) Creatinine 0.90 mg/dl (0.52-1.04) Glomerular Filtration Rate Calc > 60.0 Random Glucose 94 mg/dl (75-110) Calcium Level 9.1 mg/dl (8.4-10.2) Total Bilirubin 0.8 mg/dl (0.2-1.3) Aspartate Amino Transf (AST/SGOT) 33 U/L (0-35) Alanine Aminotransferase (ALT/SGPT) 36 U/L (0-56) Alkaline Phosphatase 99 U/L (0-126) Total Protein 6.8 gm/dl (6.3-8.2) Albumin 3.8 g/dl (3.5-5.0) Lipase 193 U/L (23-300) Chemistry Test 10/29/17 19:45 10/29/17 20:01 Urine Color Straw Urine Clarity Clear Urine pH 7.0 pH (4.8-9.5) Urine Specific Grace 1.005 Urine Protein Negative mg/dL (NEGATIVE) Urine Glucose (UA) Negative mg/dL (NEGATIVE) Urine Ketones Negative mg/dL (NEGATIVE) Urine Blood Negative (NEGATIVE) Urine Nitrite Negative (NEGATIVE) Urine Bilirubin Negative (NEGATIVE) Urine Urobilinogen Negative mg/dL (0.2-1.9) Urine Leukocyte Esterase Negative (NEGATIVE) Urine RBC <1 /HPF (0-2/HPF) Urine WBC 1 /HPF (0-5/HPF) Urine Squamous Epithelial Cells Many /LPF (</=FEW) Urine Bacteria Negative /HPF (NONE-FEW) Urine Mucus None /HPF (NONE-FEW) White Blood Count 6.2 k/uL (4.5-11.0) Red Blood Count 4.52 M/uL (4.17-5.56) Hemoglobin 14.1 g/dL (12.0-16.0) Hematocrit 40.2 % (34.0-47.0) Mean Corpuscular Volume 88.9 fL (80.0-96.0) Mean Corpuscular Hemoglobin 31.2 pg (26.0-33.0) Mean Corpuscular Hemoglobin Concent 35.2 g/dL (32.0-36.0) Red Cell Distribution Width 13.2 % (11.5-14.5) Platelet Count 80 K/uL (150-450) Mean Platelet Volume 10.8 fL (7.2-11.1) Neutrophils (%) (Auto) 77.1 % (39.4-72.5) Lymphocytes (%) (Auto) 12.5 % (17.6-49.6) Monocytes (%) (Auto) 10.0 % (4.1-12.4) Eosinophils (%) (Auto) 0.1 % (0.4-6.7) Basophils (%) (Auto) 0.3 % (0.3-1.4) Nucleated RBC Relative Count (auto) 0.1 /100WBC Neutrophils # (Auto) 4.8 K/uL (2.0-7.4) Lymphocytes # (Auto) 0.8 K/uL (1.3-3.6) Monocytes # (Auto) 0.6 K/uL (0.3-1.0) Eosinophils # (Auto) 0.0 K/uL (0.0-0.5) Basophils # (Auto) 0.0 K/uL (0.0-0.1) Nucleated RBC Absolute Count (auto) 0.00 K/uL Glomerular Filtration Rate Calc > 60.0 Calcium Level 9.1 mg/dl (8.4-10.2) Total Bilirubin 0.8 mg/dl (0.2-1.3) Aspartate Amino Transf (AST/SGOT) 33 U/L (0-35) Alanine Aminotransferase (ALT/SGPT) 36 U/L (0-56) Alkaline Phosphatase 99 U/L (0-126) Total Protein 6.8 gm/dl (6.3-8.2) Albumin 3.8 g/dl (3.5-5.0) Lipase 193 U/L (23-300) Urinalysis Test 10/29/17 19:45 Urine Color Straw Urine Clarity Clear Urine pH 7.0 pH (4.8-9.5) Urine Specific Grace 1.005 Urine Protein Negative mg/dL (NEGATIVE) Urine Glucose (UA) Negative mg/dL (NEGATIVE) Urine Ketones Negative mg/dL (NEGATIVE) Urine Blood Negative (NEGATIVE) Urine Nitrite Negative (NEGATIVE) Urine Bilirubin Negative (NEGATIVE) Urine Urobilinogen Negative mg/dL (0.2-1.9) Urine Leukocyte Esterase Negative (NEGATIVE) Urine RBC <1 /HPF (0-2/HPF) Urine WBC 1 /HPF (0-5/HPF) Urine Squamous Epithelial Cells Many /LPF (</=FEW) Urine Bacteria Negative /HPF (NONE-FEW) Urine Mucus None /HPF (NONE-FEW) EKG/Imaging EKG Interpretation 12 lead EKG: Time of EKG 1947. Rhythm: Sinus rhythm, ventricular rate 76 bpm. [place]: normal QRS: normal ST segments: No ST depression or elevation identified. No significant difference from the 10/14/[address] abdomen and pelvis with IV contrast Indication: Abdominal pain. History of pancreatitis. Comparison: 05/13/2017.. Technique: Axial CT images were obtained through the abdomen and pelvis during injection of nonionic iodinated intravenous contrast. Reformatted coronal and sagittal images were also obtained. One of the following dose optimization techniques was utilized in the performance of this exam: Automated exposure control; adjustment of the mA and/ or kV according to the patient's size; or use of an iterative reconstruction technique. Specific details can be referenced in the facility's radiology CT exam operational policy. Contrast: 75 ml of Isovue-370 IV contrast. Findings: Lower lung fay: Left lateral lower lobe does show stable 4 mm pleural-based nodule. As this is less than 6 mm, no further evaluation. Lung bases otherwise clear. Liver: Minimal stable intrahepatic biliary dilatation. No focal lesions. Biliary: Status post cholecystectomy with clips in gallbladder fossa. The common bile duct is again dilated up to 1.9 cm however tapers normally to the pancreatic head and no intraductal abnormality. This is unchanged from the previous examination. Pancreas: Normal enhancement without focal abnormality. No ductal dilatation. No peripancreatic inflammation or fluid. Spleen: Normal appearance. Adrenal glands: Unremarkable. Kidneys / retroperitoneum: No evidence of nephrolithiasis or hydronephrosis a stable subcentimeter cyst seen in the right kidney. No other discrete renal lesions. Bowel / peritoneum / mesenteries: The colon shows no focal abnormality. There is a short appendix or appendiceal stump present which is normal. The small bowel shows no focal abnormality or obstruction. The stomach shows abnormal appearance with diffuse wall thickening without a discrete focal abnormality. Small hiatal hernia is again present. No free air, free fluid, fluid collections or areas of inflammation. Lymph node assessment: No pathologic adenopathy identified. Pelvic structures: Status post hysterectomy. The remaining pelvic structures visualized within normal limits. Vessels: No significant atherosclerotic calcifications seen throughout a nonaneurysmal abdominal aorta and branches. Musculoskeletal / Body wall: No acute or aggressive osseous abnormality. There is a mild compression fracture of the superior endplate of the T11 vertebral body without retropulsion. This is not present on the previous examination. IMPRESSION: 1. The pancreas is normal. 2. Abnormal stomach shows circumferential wall thickening diffusely. This is nonspecific and could be due to gastritis. Other etiologies could be infiltrated process. Suggest follow-up endoscopy to evaluate for other etiology or mucosal abnormality. 3. Mild compression fracture of the superior endplate of T11 vertebral body. No retropulsion. Age is indeterminate. 4. Other stable chronic findings as above. Report Dictated By: Carlos Martell at 10/29/2017 8:52 PM Report E-Signed By: Carlos Martell at 10/29/2017 9:01 PM WSN:[id number] ED Course/Re-evaluation Clinical Indication for ER IV: Hydration, IV Access ED Course The patient was admitted to room. A history and physical were obtained. Differential diagnoses were considered. An IV was started. A CBC, CMP were obtained. Lab studies unremarkable. Negative UA. lipase unremarkable. EKG showing normal sinus rhythm. CT negative for pancreatitis, there is some diffuse wall thickening of the stomach which could be consistent with gastritis. Suggest following up with endoscopy. A mild compression fracture of the superior endplate of T11 vertebral body. This does appear to be new as was not present on previous images. I did review these results with the patient did tell her that there is no and occasional pancreatitis at this time this is likely from the mild compression fracture, however the patient does not recall any injuries. The gastritis could also be richa to her discomfort. I did recommend that she follows up with [facility] for the compression fracture and follow-up with Dr. Guajardo for an evaluation of upper endoscopy. Patient states she is relieved that there is no recurrent pancreatitis. Patient feels that she can go home at this time. Patient had no other questions or concerns and was discharged. Decision to Disposition Date: Oct 29, 2017 Decision to Disposition Time: 21:31 Depart Departure Latest Vital Signs Vital Signs Date Time Temp Pulse Resp B/P (MAP) Pulse Ox O2 Delivery O2 Flow Rate FiO2 10/29/17 21:44 77 112/67 (82) 98 Nasal Cannula 10/29/17 19:10 98.1 16 Impression: Primary Impression: Gastritis Additional Impression: Thoracic compression fracture Condition: Improved Disposition: HOME OR SELF-CARE Referrals: ZOHREH QUIJANO DO (PCP) CLAUDIO GOLDBERG MD 1 Week [facility] 1 Week Patient Instructions: Gastritis (ED), Upper Endoscopy (DC), Vertebral Compression Fracture (ED) Additional Instructions: There is no sign of pancreatitis, your lab studies look good. Continue to drink plenty of water. Get plenty of rest. Continue with your current medications. Follow-up with [facility] regarding the thoracic compression fracture. Follow-up with Dr. Guajardo for possible upper endoscopy. Follow-up with your primary care provider as needed. Return to the emergency department for any other concerns or worsening symptoms. Problem Qualifiers Primary Impression: Gastritis Gastritis type: unspecified gastritis Chronicity: acute Gastritis bleeding : presence of bleeding unspecified Qualified Codes: K29.00 - Acute gastritis without bleeding Additional Impression: Thoracic compression fracture Encounter type: initial encounter Fracture type: closed Qualified Codes: S22.000A - Wedge compression fracture of unspecified thoracic vertebra, initial encounter for closed fracture YUE SHEEHAN ADDICTION SPECIALIST-BC Oct 29, 2017 19:23
[2017-10-29] MEDS ORDERED: NS(*) 0.9% 1000 ML BAG 1,000 ML IV ONE (19:28)
[2017-10-29] MEDS ORDERED: ONDANSETRON 4 MG/2 ML VIAL IVP ONE (19:30)
[2017-10-29] MEDS ORDERED: fentaNYL CITR 100 MCG/2 ML AMP IVP ONE (19:30)
--- NOTE | 2017-10-29 19:55 | EKG ---
FACILITY: [facility] PATIENT NAME: STEPHANI SHAW : [id number] MR: [id number] V: [id number] EXAM DATE: ORDERING PHYSICIAN: YUE SHEEHAN TECHNOLOGIST: LIZZ Test Reason : EPIGASTRIC PAIN Blood Pressure : / mmHG Vent. Rate : 076 BPM Atrial Rate : 076 BPM P-R Int : 142 ms QRS Dur : 080 ms QT Int : 404 ms P-R-T Axes : 003 016 028 degrees QTc Int : 454 ms Normal sinus rhythm Cannot rule out Anterior infarct (cited on or before 14-OCT-2017) Abnormal ECG When compared with ECG of 29-OCT-2017 19:47, No significant change was found Confirmed by BENJI QUIROGA ([id number]) on 10/29/2017 9:10:20 PM Referred By: Confirmed By:BENJI QUIROGA
[2017-10-29 20:08] LABS: PLATELET COUNT, AUTOMATED 80 K/uL (150-450)
[2017-10-29] MEDS ORDERED: IOPAMIDOL 76% 75 ML INFUS BTL 75 ML ONE (20:27)
--- NOTE | 2017-10-29 21:04 | RADIOLOGY IMAGING REPORT ---
FACILITY: [facility] [place] PATIENT NAME: Juan Jose Lin : 1960 MR: [id number] V: [id number] EXAM DATE: ORDERING PHYSICIAN: YUE SHEEHAN TECHNOLOGIST: Location: [facility] [place] Patient: Juan Jose Lin : 1960 Visit/Account:[id number] Date of Sevice: 10/29/2017 CT abdomen and pelvis with IV contrast Indication: Abdominal pain. History of pancreatitis. Comparison: 05/13/2017.. Technique: Axial CT images were obtained through the abdomen and pelvis during injection of nonioni c iodinated intravenous contrast. Reformatted coronal and sagittal images were also obtained. One of the following dose optimization techniques was utilized in the performance of this exam: Autom ated exposure control; adjustment of the mA and/or kV according to the patient's size; or use of an i terative reconstruction technique. Specific details can be referenced in the facility's radiology C T exam operational policy. Contrast: 75 ml of Isovue-370 IV contrast. Findings: Lower lung fay: Left lateral lower lobe does show stable 4 mm pleural-based nodule. As this is les s than 6 mm, no further evaluation. Lung bases otherwise clear. Liver: Minimal stable intrahepatic biliary dilatation. No focal lesions. Biliary: Status post cholecystectomy with clips in gallbladder fossa. The common bile duct is again d ilated up to 1.9 cm however tapers normally to the pancreatic head and no intraductal abnormality. Th is is unchanged from the previous examination. Pancreas: Normal enhancement without focal abnormality. No ductal dilatation. No peripancreatic infla mmation or fluid. Spleen: Normal appearance. Adrenal glands: Unremarkable. Kidneys / retroperitoneum: No evidence of nephrolithiasis or hydronephrosis a stable subcentimeter cy st seen in the right kidney. No other discrete renal lesions. Bowel / peritoneum / mesenteries: The colon shows no focal abnormality. There is a short appendix or appendiceal stump present which is normal. The small bowel shows no focal abnormality or obstruction. The stomach shows abnormal appearance with diffuse wall thickening without a discrete focal abnormal ity. Small hiatal hernia is again present. No free air, free fluid, fluid collections or areas of inflammation. Lymph node assessment: No pathologic adenopathy identified. Pelvic structures: Status post hysterectomy. The remaining pelvic structures visualized within nor mal limits. Vessels: No significant atherosclerotic calcifications seen throughout a nonaneurysmal abdominal aort a and branches. Musculoskeletal / Body wall: No acute or aggressive osseous abnormality. There is a mild compression fracture of the superior endplate of the T11 vertebral body without retropulsion. This is not present on the previous examination. IMPRESSION: 1. The pancreas is normal. 2. Abnormal stomach shows circumferential wall thickening diffusely. This is nonspecific and could be due to gastritis. Other etiologies could be infiltrated process. Suggest follow-up endoscopy to eval uate for other etiology or mucosal abnormality. 3. Mild compression fracture of the superior endplate of T11 vertebral body. No retropulsion. Age is indeterminate. 4. Other stable chronic findings as above. Report Dictated By: Carlos Martell at 10/29/2017 8:52 PM Report E-Signed By: Carlos Martell at 10/29/2017 9:01 PM WSN:[id number]
[2017-10-29 21:44] VITALS: BP 112/67
== END 2017-10-29 21:45 | disposition home or self-care (01) ==
LOC: ER 19:13
DX: K29.00 Acute gastritis without bleeding (principal); S22.000A Wedge compression fracture of unspecified thoracic vertebra, initial encounter for closed fracture
CPT/HCPCS: 36415; 74177; 81001; 83690; 85025; 93005; 96361; 96374; 96375; 99284; J2405; J3010; J7030; Q9967; 82040; 82247; 82310; 82374; 82435; 82565; 82947; 84075; 84132; 84155; 84295; 84450; 84460; 84520

== ENCOUNTER → 2017-11-18 | Outpatient (CLI) | payer BC, MEDICARE ==
[2016-01-11 12:16] VITALS: BMI 31.5
--- NOTE | 2017-11-21 09:07 | RADIOLOGY IMAGING REPORT ---
FACILITY: [facility] [place] PATIENT NAME: STEPHANI SHAW : [id number] MR: [id number] V: [id number] EXAM DATE: [id number] ORDERING PHYSICIAN: ZOHREH QUIJANO TECHNOLOGIST: Farrah Cohn PROCEDURE:BILATERAL DIGITAL SCREENING MAMMOGRAM WITH CAD ASSISTED INTERPRETATION & 3D TOMOSYNTHESIS COMPARISON:Prior mammograms 03/30/16, 03/19/15, 11/28/13, 08/05/11. INDICATIONS:SCREENING FINDINGS: A small amount of fibroglandular tissue is seen throughout the breasts. The parenchymal pattern has remained stable allowing for difference in mammographic technique & patient positioning. There is no evidence of malignant appearing mass, malignant appearing calcifications or other secondary sign of malignancy in either breast. DIAGNOSTIC CATEGORY 1--NEGATIVE. RECOMMENDATIONS: ROUTINE MAMMOGRAM AND CLINICAL EVALUATION. IMPRESSION: BIRADS 1: Negative. No significant abnormality is seen. Dictated by: Rebecca Jimenez M.D. on 11/18/2017 at 15:45 Transcribed by: ANN on 11/18/2017 at 15:54 Approved by: Rebecca Jimenez M.D. on 11/21/2017 at 9:06 [facility]
== END ==
LOC: MAMO 03:55
PROVIDERS: ATTEND Family Medicine
DX: Z12.31 Encounter for screening mammogram for malignant neoplasm of breast (principal)
CPT/HCPCS: 77063; 77067

== ENCOUNTER → 2017-11-18 | Outpatient (CLI) | payer BC, MEDICARE ==
[2016-01-11 12:16] VITALS: BMI 31.5
== END ==
LOC: LAB 14:58
PROVIDERS: ATTEND Internal Medicine Cardiovascular Disease
DX: I50.32 Chronic diastolic (congestive) heart failure (principal)
CPT/HCPCS: 36415; 83880

== ENCOUNTER → 2017-11-18 | Outpatient (CLI) | payer BC, MEDICARE ==
[2016-01-11 12:16] VITALS: BMI 31.5
--- NOTE | 2017-11-18 21:14 | RADIOLOGY IMAGING REPORT ---
[place] [facility] [place] NAME[place] Juan Jose Lin : 1960 MR: [id number] V: [id number] EXAM DATE: ORDERING PHYSICIAN: KATE WHITE TECHNOLOGIST: Location: [facility] Patient: Juan Jose Lin : 1960 Visit/Account:[id number] Date of Sevice: 11/18/2017 DEXA Scan HISTORY: Dexa , Fracture T11. COMPARISON: 07/18/2007 and 03/19/2015. LUMBAR SPINE: The bone mineral density (BMD) measured from L1-L4 correlates with a Z-score of -2.5 and a T-score of -3.4 which is compatible with osteoporosis as defined by the World Health Organization. The corresp onding risk of fracture in the lumbar spine is increased 8-12 times compared with a young adult refer ence population. This value has decreased by 19.2 % since the prior study. More than 5% change is c onsidered significant. HIP: Bone mineral density (BMD) measured in the left total hip region correlates with a Z-score of -2.1 an d a T-score of -2.9 which is compatible with osteoporosis as defined by the World Health Organization . The corresponding risk of fracture in the hip is increased 6-8 times compared with a young adult r eference population. This value in the total hip has decreased by 15.4 % since the prior study. More than 5% change is considered significant. Bone mineral density (BMD) measured in the left Femoral Neck region measures 0.715 g/cm2. IMPRESSION: 1. Lumbar spine: Compatible with osteoporosis. There has been significant decrease in the bone min eral density since the previous exam. 2. Left Total Hip: Compatible with osteoporosis. There has been significant decrease in the bone m ineral density since the previous exam. 3. Left Femoral Neck: Bone Mineral Density is 0.715 g/cm2 The next DEXA scan of this patient should include the following sites: L1-L4 and left hip. FRAX? WHO Fracture Risk Assessment Tool link: <http://www.shef.ac.uk/FRAX/tool.jsp?locationValue=9> PLEASE NOTE: 1) The World Health Organization defines low BMD as follows: T-score Normal > -1 Osteopenia < -1 and > -2.5 Osteoporosis < -2.5 without fractures Established osteoporosis < -2.5 with fractures 2) In general, you may wish to consider: Diagnosis Treatment Follow-up DEXA Normal BMD Prevention 2-3 years Osteopenia Prevention/therapy 1-2 years Osteoporosis Therapy Yearly 3) Fracture risk estimated from the T-score is more accurate for vertebral fractures (often spontane ous) than for hip fractures. Report Dictated By: Kenyetta Leonard MD at 11/18/2017 9:08 PM Report E-Signed By: Kenyetta Leonard MD at 11/18/2017 9:10 PM WSN:[id number]
== END ==
LOC: RAD 03:56
PROVIDERS: ATTEND Internal Medicine Rheumatology
DX: M81.0 Age-related osteoporosis without current pathological fracture (principal)
CPT/HCPCS: 77080

== ENCOUNTER → 2017-11-18 | Outpatient (CLI) | payer BC, MEDICARE ==
[2016-01-11 12:16] VITALS: BMI 31.5
== END ==
LOC: LAB 15:03
PROVIDERS: ATTEND Internal Medicine Rheumatology
DX: M05.79 Rheumatoid arthritis with rheumatoid factor of multiple sites without organ or systems involvement (principal); Z79.899 Other long term (current) drug therapy
CPT/HCPCS: 82150; 83690; 85651

== ENCOUNTER → 2017-11-18 | Outpatient (CLI) | payer BC, MEDICARE ==
[2016-01-11 12:16] VITALS: BMI 31.5
[2017-11-18 16:11] LABS: PLATELET COUNT, AUTOMATED 97 K/uL (150-450)
== END ==
LOC: LAB 15:43
PROVIDERS: ATTEND Internal Medicine Hematology
DX: D61.818 Other pancytopenia (principal); D69.6 Thrombocytopenia, unspecified
CPT/HCPCS: 82040; 82247; 82310; 82374; 82435; 82565; 82728; 82947; 83540; 83550; 84075; 84132; 84155; 84295; 84450; 84460; 84520; 85025

== ENCOUNTER 2017-11-25 13:00 | Outpatient (RCR) | payer BC, MEDICARE ==
[2016-01-11 12:16] VITALS: Wt 69.5 kg
[2017-09-02 12:54] VITALS: BP 118/68
[2017-09-02] MEDS: ACETAMINOPHEN 325 MG TAB PO PRN (13:18)
[2017-09-02] MEDS: diphenhydrAMINE 25 MG CAP PO PRN (13:18)
[2017-09-02] MEDS: methylPREDNIS SUCC 125 MG/2ML IVP PRN (13:42)
[2017-09-02] MEDS: LIDOCAINE/SOD BICARB 8.4% SYR ID PRN (17:05)
[2017-09-16 12:26] VITALS: BP 117/82
[2017-09-16] MEDS: ACETAMINOPHEN 325 MG TAB PO PRN (12:32)
[2017-09-16] MEDS: diphenhydrAMINE 25 MG CAP PO PRN (12:32)
[2017-09-16] MEDS: methylPREDNIS SUCC 125 MG/2ML IVP PRN ×2 (12:33→13:13)
[2017-09-16] MEDS: LIDOCAINE/SOD BICARB 8.4% SYR ID PRN ×2 (12:33→13:12)
[~2017-11-25 13:00] MED LIST changes: +DEXTROSE 5%(*) 100 ML BAG 100 ML IVPB PRN; +IBUP-136 PO; -IBUP200C71 PO; +NS(*) 0.9% 100 ML BAG 100 ML IVPB PRN; -SPIR25TA78 PO; +SPIR25TA80 PO; -SPIR50TA31 PO; +SPIR50TA33 PO; +riTUXimab 500 MG/50 ML SDV 1,000 MG in NS(*) 0.9% 1000 ML BAG 900 ML IV ONE
[2017-11-25 13:17] VITALS: BP 115/72
[2017-11-25] MEDS ORDERED: GUAI600T57 PO (13:20)
--- NOTE | 2017-11-25 18:21 | ONCOLOGY FOLLOW UP NOTE ---
EVENT DATE: November 25, 2017 DIAGNOSES 1. Pancytopenia. 2. Microcytic anemia. 3. Thrombocytopenia. 4. Systemic lupus erythematosus/rheumatoid arthritis. 5. Seizure disorder. 6. Hypothyroidism. 7. History of deep venous thrombosis and pulmonary embolis. CHIEF COMPLAINT Patient is here today for followup of her pancytopenia and iron deficiency. HEMATOLOGY HISTORY Juan Jose Lin is a 55-year-old female who has been diagnosed with systemic lupus/rheumatoid arthritis for the last fifteen years. The patient is aware she is anemic for the last year. She received iron supplement in the past without improvement. Her blood count on April 26, 2014 did reveal a white count of 3.6, hemoglobin 9.2, hematocrit 32, MCV 72.2 and platelets 99,000. Her creatinine is normal at 0.6. The patient currently is maintained on Plaquenil, methotrexate and Orencia. Iron studies showed a serum ferritin of 52 , within the normal range; serum iron 37; TIBC 311; iron saturation 11.9. Erythropoietin was a little high at 29, which is low for the degree of the anemia. Vitamin B12 level, methylmalonic acid assay, folate level, and red cell folate, all within normal range. Serum protein electrophoresis showed normal pattern. ESR was normal at 18. CBC showed a white count 2.9, hemoglobin 10.9, hematocrit 35.9, platelets 107,000. Soluble transferrin receptor assay came back high at 6.7 confirming he diagnosis of iron deficiency anemia. Flow cytometry of the peripheral blood did reveal mature T cells that show coag suppression of CD4 and CD8 which has uncertain significance as it is only 4% of the cells have this coag suppression and it could be present in 50% of otherwise healthy individuals. Ultrasound of spleen done on July 15, 2014 showed mild splenomegaly and splenic size was 14.5 cm. No splenic mass or perisplenic fluid collections. Bone marrow aspiration biopsy for evaluation of the pancytopenia done on December 04, 2014 did show normocellular bone marrow with cellularity 40-45% with megakaryocytic hyperplasia with ITP-like cytologic features. There is active normoblastic erythropoiesis and ongoing granulopoiesis with no dysmaturation and/or excess of blasts. There is mild polyclonal plasmocytosis. There is trace of reduced iron stores with no ringed sideroblast. No evidence of granulomas or metastatic neoplasm. HISTORY OF PRESENT ILLNESS Patient is here today for followup of her pancytopenia and iron deficiency anemia. She had fractured her T11 recently with back pain. She has constipation, but other than that, she is doing fine. PAST MEDICAL HISTORY 1. Systemic lupus erythematosus/rheumatoid arthritis. 2. Anemia. 3. Seizure disorder. 4. Hypothyroidism. 5. History of DVT/PE. Her DVT was in the left lower extremity. PAST SURGICAL HISTORY 1. She had hysterectomy for cervical cancer in June of 1996. 2. Cholecystectomy in April of 2005. SOCIAL HISTORY The patient is . She has four children and two stepchildren. She is a housewife. Denies any abuse of tobacco, alcohol or drugs. FAMILY HISTORY Paternal grandmother had breast cancer and great-grandfather had melanoma. Father had skin cancer. CURRENT MEDICATIONS 1. Pradaxa 150 mg daily. 2. Levothyroxine 175 mcg daily. 3. Dilantin 100 mg two tablets daily. 4. Lasix 40 mg, 1-2 a day. 5. Plaquenil 200 mg twice daily. 6. Methotrexate 2.5 mg four tablets weekly. 7. Folic acid 400 mcg, six per week. 8. Mucinex 600 mg twice daily. 9. Orencia 125 mg shot every week. 10. Ibuprofen as needed. ALLERGIES PENICILLIN, which causes hives. SUDAFED, which causes seizures. REVIEW OF SYSTEMS CONSTITUTIONAL: No appetite or weight change. No fever, chills or sweating. No recent infection. HEENT: Ears: She has a right ear infection. Nose: She has nasal discharge. Throat: No sore throat or mouth ulcers. Eyes: No diplopia or visual changes. RESPIRATORY: She has cough with expectoration, shortness of breath and wheezing. CARDIOVASCULAR: She has worsening swelling in her lower extremities. GASTROINTESTINAL: She has constipation. GENITOURINARY: No hematuria or dysuria. MUSCULOSKELETAL: She has back pain due to fractured T11 vertebra recently. NEUROLOGICAL: No tingling or numbness in the hands or feet. No headaches or convulsions. HEMATOLOGIC/LYMPHATIC: She is weak, tired and fatigued. No enlarged lymph nodes. SKIN: No skin rash or lumps. PSYCHIATRIC: No anxiety or depression. PHYSICAL EXAMINATION PHYSICAL EXAMINATION GENERAL: Looks stable. Well-developed, well-nourished, and in no acute distress. VITAL SIGNS: Blood pressure 115/72, pulse rate 86 per minute, respirations 16 per minute, temperature 97.9, pulse ox 98% on 1.5L per per minute. HEENT: Head: Atraumatic. No sinus tenderness to palpation. Eyes: No icterus or conjunctivitis. Mouth and throat: No oral thrush or mucositis. NECK: Supple. No cervical or supraclavicular lymphadenopathy. LUNGS: Clear to auscultation and percussion bilaterally. HEART: Regular rate and rhythm. No gallops, murmurs, clicks or rubs. ABDOMEN: Soft and lax. No tenderness. No hepatosplenomegaly. No masses. EXTREMITIES: There is bilateral extensive leg edema. LYMPHATICS: No peripheral lymphadenopathy. NEUROLOGICAL: Conscious, alert and oriented times three. No focal motor or sensory deficits. PSYCHIATRIC: Mood and affect appear normal. SKIN: No skin rash, bruise or purpuric eruption. DIAGNOSTIC DATA CBC showed white count 7.4, hemoglobin 13.7, hematocrit 39.4, platelets 97,000. Chem panel total normal except sodium 135, chloride 95. Other parameters are normal. Serum iron is 115, TIBC is 329, iron saturation 35%, and ferritin 272. ASSESSMENT 1. Pancytopenia with leukocytopenia, thrombocytopenia with normal workup with B12, folate, methylmalonic acid assay, red cell folate, and serum protein immunoelectrophoresis. Ultrasound of the abdomen showed mild splenomegaly with spleen size 14.5 cm. Bone marrow aspiration biopsy did not show any evidence of myelodysplastic syndrome, leukemia, lymphoma, or bone marrow infiltration. There was megakaryocytic hyperplasia consistent with peripheral destruction of the platelets, which could be due to her splenomegaly or idiopathic thrombocytopenia. Her current platelet count is 97,000 which is stable. Hemoglobin is 13.7, and white count is 7.4. I am planning to see the patient again in six months with CBC at that time. 2. Iron deficiency anemia with high soluble transferrin receptor assay at 6.7. Patient had received Injectafer with normalization of her iron studies and the hemoglobin, which is stable currently. 3. Systemic lupus erythematosus/rheumatoid arthritis, currently on treatment. 4. Seizure disorder, on treatment. 5. Hypothyroidism, on Synthroid. 6. History of deep venous thrombosis, left lower extremity, and pulmonary embolism.. PLAN 1. Continue followup. 2. Patient to return in six months with CBC and iron studies with ferritin. 3. Patient to contact us for any new concern or complaints. BRADLEY
== END 2017-11-29 14:25 | disposition home or self-care (01) ==
LOC: ONC 13:00
PROVIDERS: ATTEND Internal Medicine Hematology
DX: M05.79 Rheumatoid arthritis with rheumatoid factor of multiple sites without organ or systems involvement (principal); D61.818 Other pancytopenia; D72.819 Decreased white blood cell count, unspecified; M32.9 Systemic lupus erythematosus, unspecified; G40.909 Epilepsy, unspecified, not intractable, without status epilepticus; E03.9 Hypothyroidism, unspecified; Z86.718 Personal history of other venous thrombosis and embolism; Z86.711 Personal history of pulmonary embolism; R53.1 Weakness; R53.83 Other fatigue; R05 Cough; R06.02 Shortness of breath; K59.00 Constipation, unspecified; Z79.899 Other long term (current) drug therapy
CPT/HCPCS: 96375; 96413; 96415; 99212; J2930; J7030; J9310; Q0163

== ENCOUNTER → 2017-12-14 | Outpatient (CLI) | payer BC, MEDICARE ==
[2016-01-11 12:16] VITALS: BMI 31.5
[~2017-12-14] MED LIST changes: -DEXTROSE 5%(*) 100 ML BAG 100 ML IVPB PRN; -NS(*) 0.9% 100 ML BAG 100 ML IVPB PRN; -riTUXimab 500 MG/50 ML SDV 1,000 MG in NS(*) 0.9% 1000 ML BAG 900 ML IV ONE
--- NOTE | 2017-12-14 12:14 | RADIOLOGY IMAGING REPORT ---
FACILITY: [facility] PATIENT NAME: Juan Jose Lin : 1960 MR: [id number] V: [id number] EXAM DATE: ORDERING PHYSICIAN: PASTORA PINA TECHNOLOGIST: Location: [facility] Patient: Juan Jose Lin : 1960 Visit/Account:[id number] Date of Sevice: 12/14/2017 EXAMINATION: Thoracic spine, 2 views Lumbar spine, 2 views 12/14/2017 11:24 AM HISTORY: Back pain COMPARISON: PA and lateral chest x-ray 10/14/2017, CT abdomen and pelvis with sagittal reformats 2017, CT chest 08/26/2017. FINDINGS: Thoracic spine: Osteopenia. Accentuated thoracic kyphotic curvature. Mild T11 wedging is stable sin ce October but new since CT chest 08/26/2017. Mild wedging at T7, T6 and minimally the superior endplate of T5 are stable since the chest CT. There does appear to be vertebral body height loss at T8 and T9 which has developed since the chest CT, however. Multilevel degenerative spurring. Pedicles and po sterior almost are unremarkable. Mild initial scoliotic thoracolumbar curvature. Lumbar spine: Osteopenia. 5 nonrib-bearing lumbar vertebral levels. Mild thoracolumbar dextroscolio tic curvature. Lumbar vertebral body and disc space heights are well-preserved. Fairly minimal dege nerative endplate spurring. Pedicles and posterior elements are intact. IMPRESSION: 1. Osteopenia. 2. Multilevel thoracic compression deformities some which are subacute or chronic however there appe ars to be vertebral body height loss at T8 and T9 new comparing with chest CT in August. 3. No acute bony finding in the lumbar spine. Report Dictated By: Meño Lind MD at 12/14/2017 12:01 PM Report E-Signed By: Meño Lind MD at 12/14/2017 12:10 PM WSN:[id number]
--- NOTE | 2017-12-14 12:14 | RADIOLOGY IMAGING REPORT ---
[place] [facility] [place]IENT NAME: Juan Jose Lin : 1960 MR: [id number] V: [id number] EXAM DATE: ORDERING PHYSICIAN: PASTORA PINA TECHNOLOGIST: Location: [facility] Patient: Juan Jose Lin : 1960 Visit/Account:[id number] Date of Sevice: 12/14/2017 EXAMINATION: Thoracic spine, 2 views Lumbar spine, 2 views 12/14/2017 11:24 AM HISTORY: Back pain COMPARISON: PA and lateral chest x-ray 10/14/2017, CT abdomen and pelvis with sagittal reformats 2017, CT chest 08/26/2017. FINDINGS: Thoracic spine: Osteopenia. Accentuated thoracic kyphotic curvature. Mild T11 wedging is stable sin ce October but new since CT chest 08/26/2017. Mild wedging at T7, T6 and minimally the superior endplate of T5 are stable since the chest CT. There does appear to be vertebral body height loss at T8 and T9 which has developed since the chest CT, however. Multilevel degenerative spurring. Pedicles and po sterior almost are unremarkable. Mild initial scoliotic thoracolumbar curvature. Lumbar spine: Osteopenia. 5 nonrib-bearing lumbar vertebral levels. Mild thoracolumbar dextroscolio tic curvature. Lumbar vertebral body and disc space heights are well-preserved. Fairly minimal dege nerative endplate spurring. Pedicles and posterior elements are intact. IMPRESSION: 1. Osteopenia. 2. Multilevel thoracic compression deformities some which are subacute or chronic however there appe ars to be vertebral body height loss at T8 and T9 new comparing with chest CT in August. 3. No acute bony finding in the lumbar spine. Report Dictated By: Meño Lind MD at 12/14/2017 12:01 PM Report E-Signed By: Meño Lind MD at 12/14/2017 12:10 PM WSN:[id number]
== END ==
LOC: RAD 11:19
PROVIDERS: ATTEND Physician Assistant Medical
DX: M85.88 Other specified disorders of bone density and structure, other site (principal); S22.008S Other fracture of unspecified thoracic vertebra, sequela
CPT/HCPCS: 72070; 72100

== ENCOUNTER → 2017-12-20 | Outpatient (CLI) | payer BC, MEDICARE ==
[2016-01-11 12:16] VITALS: BMI 31.5
== END ==
LOC: LAB 15:23
PROVIDERS: ATTEND Internal Medicine Cardiovascular Disease
DX: I50.32 Chronic diastolic (congestive) heart failure (principal)
CPT/HCPCS: 36415; 83880

== ENCOUNTER → 2017-12-20 | Outpatient (CLI) | payer BC, MEDICARE ==
[2016-01-11 12:16] VITALS: BMI 31.5
[2017-12-20 15:48] LABS: PLATELET COUNT, AUTOMATED 76 K/uL (150-450)
== END ==
LOC: LAB 15:27
PROVIDERS: ATTEND Internal Medicine Rheumatology
DX: M05.79 Rheumatoid arthritis with rheumatoid factor of multiple sites without organ or systems involvement (principal); Z79.899 Other long term (current) drug therapy
CPT/HCPCS: 82040; 82150; 82247; 82310; 82374; 82435; 82565; 82947; 83690; 84075; 84132; 84155; 84295; 84450; 84460; 84520; 85025; 85651

== ENCOUNTER 2018-01-24 20:26 | Emergency (ER) | payer BC, MEDICARE ==
[2016-01-11 12:16] VITALS: Wt 67.8 kg
--- NOTE | 2018-01-24 20:37 | ER Report ---
History and Physical Time Seen By MD: 20:38 HPI/ROS CHIEF COMPLAINT: hip pain HISTORY OF PRESENT ILLNESS: This is a 57 year old female. She is having bilateral hip pain. They have been hurting for the last few weeks, worsening. Today felt a pop central and to the left. More pain. History of dislocations in the past. Pain worsens with movement. Seems to stiffen up when at rest and hurts worse to get moving again. No fevers or chills. No problem with bowels or bladder. No other known injury. Allergies: Coded Allergies: Penicillins (Verified Allergy, Intermediate, HIVES, 01/24/18) levofloxacin (Verified Allergy, Intermediate, SEIZURE, 01/24/18) metronidazole (Verified Allergy, Intermediate, SEIZURE, 01/24/18) morphine (Verified Allergy, Intermediate, NAUSEA , 01/24/18) WITH IV ROUTE promethazine (Verified Allergy, Mild, NAUSEA, 01/24/18) pseudoephedrine (Verified Adverse Reaction, Severe, CAUSES SEIZURES, 01/24/18) doxycycline (Verified Adverse Reaction, Intermediate, VOMITING, 01/24/18) Home Meds Active Scripts Cyclobenzaprine Hcl (CYCLOBENZAPRINE HCL) 10 Mg Tablet, 10 MG PO Q8H PRN for MUSCLE SPASMS, #20 TAB 0 Refills Prov:DELIA POSEY MD 01/24/18 Dicyclomine Hcl (BENTYL) 10 Mg Capsule, 10 MG PO QID PRN for PAIN, #20 CAPSULE 0 Refills Prov:DELIA POSEY MD 09/21/16 Hydrocodone Bit/Acetaminophen (HYDROCODON-ACETAMINOPHEN 5-325) 1 Each Tablet, 1 EACH PO Q4H PRN for PAIN, #12 TAB 0 Refills Prov:DELIA POSEY MD 09/21/16 Ondansetron (ZOFRAN ODT) 4 Mg Tab.rapdis, 4 MG PO Q6H PRN for NAUSEA/VOMITING, #20 TAB.LIZBETH 0 Refills Prov:DELIA POSEY MD 09/21/16 Reported Medications Guaifenesin (MUCINEX) 600 Mg Tablet.er, 600 MG PO 11/25/17 Rivaroxaban 20 Mg (XARELTO 20 MG) 20 Mg Tablet, 20 MG PO DAILY, TAB 10/14/17 Potassium Chloride (POTASSIUM CHLORIDE) 10 Meq Capsule.er, 20 MEQ PO DAILY 10/14/17 Ferrous Sulfate (FEOSOL) 325 Mg Tablet, 325 MG PO DAILY 10/14/17 Bumetanide (BUMETANIDE) 1 Mg Tablet, 1 MG PO BID 10/14/17 Bumetanide (BUMETANIDE) 2 Mg Tab, 2 MG PO QDAY, TAB 05/24/17 Spironolactone (SPIRONOLACTONE) 50 Mg Tablet, 50 MG PO BID 05/24/17 Prednisone (PREDNISONE) 5 Mg Tab.ds.pk, 5 MG PO QDAY 05/24/17 Levothyroxine Sodium (LEVOTHYROXINE SODIUM) 150 Mcg Tablet, 150 MCG PO QDAY 05/24/17 Hydroxychloroquine Sulfate (PLAQUENIL) 200 Mg Tablet, 200 MG PO BID 09/21/16 Guaifenesin (MUCINEX) 600 Mg Tablet.er, 600 MG PO BID 08/05/16 Rituximab (RITUXAN) 100 Mg/10 Ml Soln, 100 MG IV 05/06/16 Oxygen (Oxygen) 2 L Inha, 1.5 L INH DAILY, 0 Refills 07/25/10 Reviewed Nurses Notes: Yes Hx Smoking: No Smoking Status: Never Smoker Exposure to Second Hand Smoke?: No Hx Substance Use Disorder: No Hx Alcohol Use: No Constitutional Vital Sign - Last 24 Hours 01/24/18 01/24/18 01/24/18 01/24/18 20:36 20:37 20:41 20:56 Temp 98.5 Pulse 79 82 79 Resp 13 B/P (MAP) 113/74 (87) 113/74 Pulse Ox 98 98 98 O2 Delivery Nasal Cannula 01/24/18 01/24/18 01/24/18 01/24/18 21:06 21:11 21:42 21:56 Pulse 78 71 B/P (MAP) 105/57 (73) 109/71 (84) Pulse Ox 100 99 01/24/18 01/24/18 01/24/18 01/24/18 22:00 22:11 22:16 22:30 Pulse 74 71 B/P (MAP) 101/59 (73) 115/105 (108) Pulse Ox 99 99 01/24/18 01/24/18 01/24/18 22:31 22:46 22:51 Pulse 75 77 B/P (MAP) 109/61 (77) Pulse Ox 99 98 Physical Exam General Appearance: Alert, having some distress because of pain. Respiratory: Breathing easily, clear. Cardiac: Regular rate and rhythm. Normal capillary refill. Gastrointestinal: Abdomen is soft and non tender, bowel sounds normal. Musculoskeletal: Pain in the hips bilaterally into the gluteus and sciatic area bilaterally. No pain over spinous processes, sacrum or coccyx in midline. No pain lateral hips or into the anterior groin or pelvis. Skin: No rashes or lesions. DIFFERENTIAL DIAGNOSIS: After history and physical exam differential diagnosis was considered for bilateral hip pain. Will check for fracture, inflammatory, musculoskeletal pain. Medical Decision Making Data Points Result Diagram: 01/24/18 21001/24/18 2213 Laboratory Hematology Test 01/24/18 21:08 01/24/18 22:13 Red Blood Count 4.59 M/uL (4.17-5.56) Mean Corpuscular Volume 90.7 fL (80.0-96.0) Mean Corpuscular Hemoglobin 30.7 pg (26.0-33.0) Mean Corpuscular Hemoglobin Concent 33.9 g/dL (32.0-36.0) Red Cell Distribution Width 13.6 % (11.5-14.5) Mean Platelet Volume 11.6 fL (7.2-11.1) Neutrophils (%) (Auto) 86.1 % (39.4-72.5) Lymphocytes (%) (Auto) 7.8 % (17.6-49.6) Monocytes (%) (Auto) 5.7 % (4.1-12.4) Eosinophils (%) (Auto) 0.0 % (0.4-6.7) Basophils (%) (Auto) 0.4 % (0.3-1.4) Nucleated RBC Relative Count (auto) 0.1 /100WBC Neutrophils # (Auto) 4.0 K/uL (2.0-7.4) Lymphocytes # (Auto) 0.4 K/uL (1.3-3.6) Monocytes # (Auto) 0.3 K/uL (0.3-1.0) Eosinophils # (Auto) 0.0 K/uL (0.0-0.5) Basophils # (Auto) 0.0 K/uL (0.0-0.1) Nucleated RBC Absolute Count (auto) 0.00 K/uL Peripheral Blood Smear Yes Y/N Erythrocyte Sedimentation Rate 15 mm/HOUR (0-30) Sodium Level 136 mmol/L (137-145) Potassium Level 3.9 mmol/L (3.5-5.0) Chloride Level 97 mmol/L (98-107) Carbon Dioxide Level 32 mmol/L (22-31) Blood Urea Nitrogen 13 mg/dl (7-18) Creatinine 0.60 mg/dl (0.52-1.04) Glomerular Filtration Rate Calc > 60.0 Random Glucose 107 mg/dl (75-110) Calcium Level 8.8 mg/dl (8.4-10.2) Total Bilirubin 0.4 mg/dl (0.2-1.3) Aspartate Amino Transf (AST/SGOT) 25 U/L (0-35) Alanine Aminotransferase (ALT/SGPT) 27 U/L (0-56) Alkaline Phosphatase 92 U/L (0-126) Total Protein 6.1 g/dl (6.3-8.2) Albumin 3.7 g/dl (3.5-5.0) Chemistry Test 01/24/18 21:08 01/24/18 22:13 White Blood Count 4.7 k/uL (4.5-11.0) Red Blood Count 4.59 M/uL (4.17-5.56) Hemoglobin 14.1 g/dL (12.0-16.0) Hematocrit 41.6 % (34.0-47.0) Mean Corpuscular Volume 90.7 fL (80.0-96.0) Mean Corpuscular Hemoglobin 30.7 pg (26.0-33.0) Mean Corpuscular Hemoglobin Concent 33.9 g/dL (32.0-36.0) Red Cell Distribution Width 13.6 % (11.5-14.5) Platelet Count 64 K/uL (150-450) Mean Platelet Volume 11.6 fL (7.2-11.1) Neutrophils (%) (Auto) 86.1 % (39.4-72.5) Lymphocytes (%) (Auto) 7.8 % (17.6-49.6) Monocytes (%) (Auto) 5.7 % (4.1-12.4) Eosinophils (%) (Auto) 0.0 % (0.4-6.7) Basophils (%) (Auto) 0.4 % (0.3-1.4) Nucleated RBC Relative Count (auto) 0.1 /100WBC Neutrophils # (Auto) 4.0 K/uL (2.0-7.4) Lymphocytes # (Auto) 0.4 K/uL (1.3-3.6) Monocytes # (Auto) 0.3 K/uL (0.3-1.0) Eosinophils # (Auto) 0.0 K/uL (0.0-0.5) Basophils # (Auto) 0.0 K/uL (0.0-0.1) Nucleated RBC Absolute Count (auto) 0.00 K/uL Peripheral Blood Smear Yes Y/N Erythrocyte Sedimentation Rate 15 mm/HOUR (0-30) Glomerular Filtration Rate Calc > 60.0 Calcium Level 8.8 mg/dl (8.4-10.2) Total Bilirubin 0.4 mg/dl (0.2-1.3) Aspartate Amino Transf (AST/SGOT) 25 U/L (0-35) Alanine Aminotransferase (ALT/SGPT) 27 U/L (0-56) Alkaline Phosphatase 92 U/L (0-126) Total Protein 6.1 g/dl (6.3-8.2) Albumin 3.7 g/dl (3.5-5.0) EKG/Imaging Imaging CT of the osseous pelvis without contrast Indication: Hip pain. Low bone density. Comparison: 10/29/2017 Technique: Axial CT images were obtained through the pelvis. Reformatted coronal and sagittal images were reviewed. One of the following dose optimization techniques was utilized in the performance of this exam: Automated exposure control; adjustment of the mA and/or kV according to the patient's size; or use of an iterative reconstruction technique. Specific details can be referenced in the facility's radiology CT exam operational policy. Findings: No acute fracture deformity is identified involving the bony pelvis, sacrum or the proximal femora. On the sagittal reconstructed images, there is a superior endplate concavity at L5 which is a new finding when compared to the recent CT scan. Appearance is compatible with an acute superior endplate compression fracture. There is up to 25% loss in vertebral body height identified. The hip joints are normally aligned and appear normal. The pubic symphysis and sacroiliac joints are normally aligned and there are minimal degenerative changes at the sacroiliac joints. With respect to the soft tissues, there has been prior hysterectomy. No free pelvic fluid. No joint effusion at either hip joint. There is no inguinal adenopathy suspected. The pelvic musculature appears symmetric. There is an intramuscular lipoma involving the left rectus femoris muscle on the edge of the [id number]. IMPRESSION: 1. Acute appearing superior endplate compression fracture at L5 with up to 25% loss in height. There is minimal retropulsion without spinal canal narrowing. 2. No additional fractures are seen. 3. Minimal bilateral sacroiliac joint osteoarthritis. Report Dictated By: Graeme Rico at 01/24/2018 10:27 PM ED Course/Re-evaluation Clinical Indication for ER IV: Hydration, IV Access ED Course Patient was given Dilaudid to help with pain and then CT scan was obtained. This did show an L5 compression fracture. The risks the hips and bony pelvis were negative. Labs with mild changes on metabolic panel, chronic thrombocytopenia, otherwise negative Decision to Disposition Date: Jan 24, 2018 Decision to Disposition Time: 22:51 Depart Departure Latest Vital Signs Vital Signs Date Time Temp Pulse Resp B/P (MAP) Pulse Ox O2 Delivery O2 Flow Rate FiO2 01/24/18 22:51 109/61 (77) 01/24/18 22:46 77 98 01/24/18 20:37 98.5 13 Nasal Cannula Impression: Primary Impression: Lumbar compression fracture Condition: Improved Disposition: HOME OR SELF-CARE Referrals: ZOHREH QUIJANO DO (PCP) New Scripts Cyclobenzaprine Hcl (CYCLOBENZAPRINE HCL) 10 Mg Tablet 10 MG PO Q8H PRN for MUSCLE SPASMS, #20 TAB 0 Refills Prov: DELIA POSEY MD 01/24/18 Patient Instructions: Vertebral Compression Fracture (ED) Additional Instructions: Flexeril 10mg, one every 8 hours as needed for pain. Lortab 5/325, one every 4 hours as needed for pain. Apply ice or heat as needed for pain. Problem Qualifiers Primary Impression: Lumbar compression fracture Encounter type: initial encounter Lumbar vertebra fracture level: L5 Fracture type: closed Qualified Codes: S32.050A - Wedge compression fracture of fifth lumbar vertebra, initial encounter for closed fracture DELIA POSEY MD Jan 24, 2018 20:37
[2018-01-24] MEDS ORDERED: HYDROMORPHONE HCL 1 MG/ML SYRINGE IVP ONE (20:50)
[2018-01-24 21:17] LABS: PLATELET COUNT, AUTOMATED 64 K/uL (150-450)
--- NOTE | 2018-01-24 22:37 | RADIOLOGY IMAGING REPORT ---
FACILITY: [facility] - [place] PATIENT NAME: Juan Jose Lin : 1960 MR: [id number] V: [id number] EXAM DATE: ORDERING PHYSICIAN: DELIA POSEY TECHNOLOGIST: Location: [facility] Patient: Juan Jose Lin : 1960 Visit/Account:[id number] Date of Sevice: 01/24/2018 CT of the osseous pelvis without contrast Indication: Hip pain. Low bone density. Comparison: 10/29/2017 Technique: Axial CT images were obtained through the pelvis. Reformatted coronal and sagittal images were reviewed. One of the following dose optimization techniques was utilized in the performance of this exam: Autom ated exposure control; adjustment of the mA and/or kV according to the patient's size; or use of an i terative reconstruction technique. Specific details can be referenced in the facility's radiology C T exam operational policy. Findings: No acute fracture deformity is identified involving the bony pelvis, sacrum or the proximal femora. On the sagittal reconstructed images, there is a superior endplate concavity at L5 which is a new fin ding when compared to the recent CT scan. Appearance is compatible with an acute superior endplate co mpression fracture. There is up to 25% loss in vertebral body height identified. The hip joints are normally aligned and appear normal. The pubic symphysis and sacroiliac joints are normally aligned and there are minimal degenerative changes at the sacroiliac joints. With respect to the soft tissues, there has been prior hysterectomy. No free pelvic fluid. No joint e ffusion at either hip joint. There is no inguinal adenopathy suspected. The pelvic musculature appear s symmetric. There is an intramuscular lipoma involving the left rectus femoris muscle on the edge of the [id number]. IMPRESSION: 1. Acute appearing superior endplate compression fracture at L5 with up to 25% loss in height. There is minimal retropulsion without spinal canal narrowing. 2. No additional fractures are seen. 3. Minimal bilateral sacroiliac joint osteoarthritis. Report Dictated By: Graeme iRco at 01/24/2018 10:27 PM Report E-Signed By: Graeme Rico at 01/24/2018 10:34 PM WSN:[id number]
[2018-01-24] MEDS ORDERED: APAP/HYDROCODONE 325/5 TAB PO ONE (22:50)
[2018-01-24] MEDS ORDERED: CYCLOBENZAPRINE HCL 10 MG TAB PO ONE (22:50)
[2018-01-24] MEDS ORDERED: CYCLOBENZAPRINE HCL 10 MG TH PO ONE (22:50)
[2018-01-24 22:51] VITALS: BP 109/61
[2018-01-24] MEDS ORDERED: CYCL10TA29 PO (22:51)
== END 2018-01-24 23:30 | disposition home or self-care (01) ==
LOC: ER 20:54
DX: S32.050A Wedge compression fracture of fifth lumbar vertebra, initial encounter for closed fracture (principal); D69.6 Thrombocytopenia, unspecified
CPT/HCPCS: 36415; 72192; 85025; 85651; 99283; A9270; J1170; 82040; 82247; 82310; 82374; 82435; 82565; 82947; 84075; 84132; 84155; 84295; 84450; 84460; 84520; 96374

== ENCOUNTER 2018-02-09 15:28 | Emergency (ER) | payer MEDICARE ==
[2016-01-11 12:16] VITALS: Wt 66.5 kg
[~2018-02-09 15:28] MED LIST changes: +CYCL10TA29 PO
--- NOTE | 2018-02-09 15:39 | ER Report ---
History and Physical Time Seen By MD: 15:39 HPI/ROS CHIEF COMPLAINT: Back pain HISTORY OF PRESENT ILLNESS: 57-year-old female patient presents to emergency room with complaint of back pain. Patient states that she had gone into the kitchen to get something eat. She was coming back out to her recliner and she bent over to move the heating pad out of the chair. She states when she did that that she felt a popping in her back. States that she had significant amounts of pain. She states that her legs were numb. She went to grab onto the recliner and was able pull herself into a seated position before she fell. Patient states that the numbness lasted approximately one minute. She states that that seemed to resolve. She states she has good sensation in her legs now and denies any weakness. She denies any loss of bowel or bladder control. She denies any saddle paresthesia. Patient was recently diagnosed with an L5 compression fracture and has been taking medication for that. She states she has been taking the pain medication just at night. She currently rates her pain an 8 out of 10. REVIEW OF SYSTEMS: Respiratory: No cough, no dyspnea. Cardiovascular: No chest pain, no palpitations. Gastrointestinal: No vomiting, no abdominal pain. Musculoskeletal: As noted above Allergies: Coded Allergies: Penicillins (Verified Allergy, Intermediate, HIVES, 02/09/18) levofloxacin (Verified Allergy, Intermediate, SEIZURE, 02/09/18) metronidazole (Verified Allergy, Intermediate, SEIZURE, 02/09/18) morphine (Verified Allergy, Intermediate, NAUSEA , 02/09/18) WITH IV ROUTE promethazine (Verified Allergy, Mild, NAUSEA, 02/09/18) pseudoephedrine (Verified Adverse Reaction, Severe, CAUSES SEIZURES, 02/09/18) doxycycline (Verified Adverse Reaction, Intermediate, VOMITING, 02/09/18) Home Meds Active Scripts Cyclobenzaprine Hcl (CYCLOBENZAPRINE HCL) 10 Mg Tablet, 10 MG PO TID PRN for MUSCLE SPASMS, #30 TAB Prov:EMELIA WADSWORTH 02/09/18 Cyclobenzaprine Hcl (CYCLOBENZAPRINE HCL) 10 Mg Tablet, 10 MG PO Q8H PRN for MUSCLE SPASMS, #20 TAB 0 Refills Prov:DELIA POSEY MD 01/24/18 Hydrocodone Bit/Acetaminophen (HYDROCODON-ACETAMINOPHEN 5-325) 1 Each Tablet, 1 EACH PO Q4H PRN for PAIN, #12 TAB 0 Refills Prov:DELIA POSEY MD 09/21/16 Ondansetron (ZOFRAN ODT) 4 Mg Tab.rapdis, 4 MG PO Q6H PRN for NAUSEA/VOMITING, #20 TAB.LIZBETH 0 Refills Prov:DELIA POSEY MD 09/21/16 Reported Medications Guaifenesin (MUCINEX) 600 Mg Tablet.er, 600 MG PO 11/25/17 Rivaroxaban 20 Mg (XARELTO 20 MG) 20 Mg Tablet, 20 MG PO DAILY, TAB 10/14/17 Potassium Chloride (POTASSIUM CHLORIDE) 10 Meq Capsule.er, 20 MEQ PO DAILY 10/14/17 Ferrous Sulfate (FEOSOL) 325 Mg Tablet, 325 MG PO DAILY 10/14/17 Bumetanide (BUMETANIDE) 1 Mg Tablet, 1 MG PO BID 10/14/17 Bumetanide (BUMETANIDE) 2 Mg Tab, 2 MG PO QDAY, TAB 05/24/17 Spironolactone (SPIRONOLACTONE) 50 Mg Tablet, 50 MG PO BID 05/24/17 Prednisone (PREDNISONE) 5 Mg Tab.ds.pk, 5 MG PO QDAY 05/24/17 Levothyroxine Sodium (LEVOTHYROXINE SODIUM) 150 Mcg Tablet, 150 MCG PO QDAY 05/24/17 Hydroxychloroquine Sulfate (PLAQUENIL) 200 Mg Tablet, 200 MG PO BID 09/21/16 Guaifenesin (MUCINEX) 600 Mg Tablet.er, 600 MG PO BID 08/05/16 Rituximab (RITUXAN) 100 Mg/10 Ml Soln, 100 MG IV 05/06/16 Oxygen (Oxygen) 2 L Inha, 1.5 L INH DAILY, 0 Refills 07/25/10 Discontinued Scripts Dicyclomine Hcl (BENTYL) 10 Mg Capsule, 10 MG PO QID PRN for PAIN, #20 CAPSULE 0 Refills Prov:DELIA POSEY MD 09/21/16 Past Medical/Surgical History Patient has a past medical history of seizures, congestive heart failure, continuous oxygen, pulmonary embolism, pancreatitis, cholecystitis, fractures, hypothyroidism, rheumatoid arthritis, lupus, anemia, cervical cancer. Patient has surgical history of tonsillectomy, history of appendectomy, cholecystectomy. Patient has a family medical history of stroke. Reviewed Nurses Notes: Yes Hx Smoking: No Smoking Status: Never Smoker Exposure to Second Hand Smoke?: No Hx Substance Use Disorder: No Hx Alcohol Use: No Constitutional Vital Sign - Last 24 Hours 02/09/18 02/09/18 02/09/18 02/09/18 15:28 15:35 15:36 15:58 Temp 98.1 Pulse 89 91 94 Resp 14 B/P (MAP) 119/72 (88) 119/72 Pulse Ox 98 99 O2 Delivery Nasal Cannula Nasal Cannula O2 Flow Rate 1.5 02/09/18 02/09/18 02/09/18 02/09/18 16:11 16:46 17:16 17:17 Pulse 87 82 B/P (MAP) 115/70 (85) 112/83 (93) Pulse Ox 97 98 O2 Delivery Nasal Cannula Nasal Cannula Physical Exam General Appearance: The patient is alert, has no immediate need for airway protection and no current signs of toxicity. ENT: Tympanic membranes are pearly-rajan, auditory canals are patent, mucous membranes are moist. Respiratory: Chest is non tender, lungs are clear to auscultation. Cardiac: regular rate and rhythm Gastrointestinal: Abdomen is soft and non tender, no masses, bowel sounds normal. Musculoskeletal: Neck: Neck is supple and non tender. Back: Patient does have some tenderness to the midline spine down around L4-L5 Extremities have full range of motion and are non tender. Skin: No rashes or lesions. Neuro: Patient has good sensation distally, she is good strength with dorsiflexion and plantar flexion. DIFFERENTIAL DIAGNOSIS: After history and physical exam differential diagnosis was considered for back pain including but not limited to muscular pain, herniated disc, spine fracture, intra-abdominal causes and urinary tract infection. Medical Decision Making EKG/Imaging Imaging EXAMINATION: CT Lumbar spine without intravenous contrast HISTORY: Back pain COMPARISON: Radiographs December 14, 2017, chest CT August 26, 2017 TECHNIQUE: Axial images were obtained through the lumbar spine without IV contrast administration. Coronal and sagittal reformatted images were generated from the source data. One of the following dose optimization techniques was utilized in the performance of this exam: automated exposure control; adjustment of the mA and/or kV according to patient size; or use of iterative reconstruction technique. Specific details can be referenced in the facility's radiology CT exam operational policy. FINDINGS: Alignment: Normal. Vertebral bodies: Age-indeterminate T12 wedge compression deformity with approximate 30% vertebral body height loss. This is new compared to August 26, [address] L4 age-indeterminate wedge compression deformity with approximate 25% vertebral body height loss is new compared to prior radiographs. Equivocal nonhealed minimal fracture lucency within the upper endplate of this vertebral body, sagittal image 40. Age-indeterminate L5 wedge compression deformity is new compared to prior radiographs with approximate 30% vertebral body height loss. Buckling of the posterior upper L4 and L5 vertebral body cortex results in no significant canal narrowing. Disc Spaces: Negative. Hardware: None. Visualized retroperitoneal/abdominal structures: Cholecystectomy clips noted. IMPRESSION: 1. Age-indeterminate L4 wedge compression deformity with 25% vertebral body height loss is new compared to prior radiographs. Equivocal normal healed fracture lucency within the upper L4 endplate. This compression deformity may be subacute versus chronic. Correlate with site of pain. MR could be utilized for further characterization as needed. 2. Additional age-indeterminate T12 and L5 wedge compression deformities with 30% height loss, findings which are new compared to prior studies. These may be chronic but new. Subacute fractures cannot be excluded. Correlate with site of pain. Report Dictated By: Adrián Kirkland MD at 02/09/2018 4:42 PM Report E-Signed By: Adrián Kirkland MD at 02/09/2018 4:50 PM ED Course/Re-evaluation ED Course Patient was admitted to examine, history and physical were obtained. Differential diagnoses were considered. On examination lungs are clear, heart is regular, patient does have tenderness to the low back in the L4-L5 region. A IV was started, patient received 1 mg of Dilaudid. She did become nauseated we gave her 4 mg Zofran after that. A CT scan of the lumbar spine was done. It does show the patient has compression fracture to T12, L4 and L5. L4 and T12 they're unsure of the chronicity of that, however L5 did appear to be more acute. Discussed the findings with the patient. We will go ahead and discharge her home. Patient states she does have plenty of pain medication at home. We will give her a prescription for Flexeril. Patient did have improvement in her comfort here in the emergency room. Patient is to follow-up with primary care provider, she's taken her pain medication as prescribed. I would like her to follow-up with orthopedics to make sure that the bones are healing properly. Patient verbalized understanding and agreement with plan. Decision to Disposition Date: Feb 09, 2018 Decision to Disposition Time: 17:19 Depart Departure Latest Vital Signs Vital Signs Date Time Temp Pulse Resp B/P (MAP) Pulse Ox O2 Delivery O2 Flow Rate FiO2 02/09/18 17:17 112/83 (93) 02/09/18 17:16 82 98 Nasal Cannula 02/09/18 15:58 1.5 02/09/18 15:36 98.1 14 Impression: Primary Impression: Lumbar compression fracture Additional Impression: Thoracic compression fracture Condition: Improved Disposition: HOME OR SELF-CARE Referrals: ZOHREH QUIJANO DO (PCP) New Scripts Cyclobenzaprine Hcl (CYCLOBENZAPRINE HCL) 10 Mg Tablet 10 MG PO TID PRN for MUSCLE SPASMS, #30 TAB Prov: EMELIA WADSWORTH 02/09/18 Patient Instructions: Vertebral Compression Fracture (ED) Additional Instructions: Limit activity by pain. Ice the low back. You can certainly try a back brace. Take the medication as prescribed. Return to the ER if condition worsens. Follow up with your primary care provider in the next week. Follow up with orthopedics of your choice to make sure that the bones are healing well. Problem Qualifiers Primary Impression: Lumbar compression fracture Encounter type: initial encounter Lumbar vertebra fracture level: L4 Fracture type: closed Qualified Codes: S32.040A - Wedge compression fracture of fourth lumbar vertebra, initial encounter for closed fracture Additional Impression: Thoracic compression fracture Encounter type: initial encounter Fracture type: closed Qualified Codes: S22.000A - Wedge compression fracture of unspecified thoracic vertebra, initial encounter for closed fracture EMELIA WADSWORTH Feb 09, 2018 15:39
[2018-02-09] MEDS ORDERED: HYDROMORPHONE HCL 1 MG/ML SYRINGE IVP ONE (15:50)
[2018-02-09] MEDS ORDERED: ONDANSETRON 4 MG/2 ML VIAL IVP ONE (16:45)
--- NOTE | 2018-02-09 16:55 | RADIOLOGY IMAGING REPORT ---
FACILITY: [facility] [place] PATIENT NAME: Juan Jose Lin : 1960 MR: [id number] V: [id number] EXAM DATE: ORDERING PHYSICIAN: EMELIA WADSWORTH TECHNOLOGIST: Location: [facility] Patient: Juan Jose Lin : 1960 Visit/Account:[id number] Date of Sevice: 02/09/2018 EXAMINATION: CT Lumbar spine without intravenous contrast HISTORY: Back pain COMPARISON: Radiographs December 14, 2017, chest CT August 26, 2017 TECHNIQUE: Axial images were obtained through the lumbar spine without IV contrast administration. C oronal and sagittal reformatted images were generated from the source data. One of the following dose optimization techniques was utilized in the performance of this exam: autom ated exposure control; adjustment of the mA and/or kV according to patient size; or use of iterative reconstruction technique. Specific details can be referenced in the facility's radiology CT exam ope rational policy. FINDINGS: Alignment: Normal. Vertebral bodies: Age-indeterminate T12 wedge compression deformity with approximate 30% vertebral john dy height loss. This is new compared to August 26, [address] L4 age-indeterminate wedge compression deformity with approximate 25% vertebral body height loss is n ew compared to prior radiographs. Equivocal nonhealed minimal fracture lucency within the upper endp late of this vertebral body, sagittal image 40. Age-indeterminate L5 wedge compression deformity is new compared to prior radiographs with approximat e 30% vertebral body height loss. Buckling of the posterior upper L4 and L5 vertebral body cortex results in no significant canal narro wing. Disc Spaces: Negative. Hardware: None. Visualized retroperitoneal/abdominal structures: Cholecystectomy clips noted. IMPRESSION: 1. Age-indeterminate L4 wedge compression deformity with 25% vertebral body height loss is new bonny red to prior radiographs. Equivocal normal healed fracture lucency within the upper L4 endplate. This compression deformity may be subacute versus chronic. Correlate with site of pain. MR could be utilized for further characterization as needed. 2. Additional age-indeterminate T12 and L5 wedge compression deformities with 30% height loss, findi ngs which are new compared to prior studies. These may be chronic but new. Subacute fractures canno t be excluded. Correlate with site of pain. Report Dictated By: Adrián Kirkland MD at 02/09/2018 4:42 PM Report E-Signed By: Adrián Kirkland MD at 02/09/2018 4:50 PM WSN:[email or web address]
[2018-02-09 17:17] VITALS: BP 112/83
[2018-02-09] MEDS ORDERED: CYCL10TA29 PO (17:21)
== END 2018-02-09 17:40 | disposition home or self-care (01) ==
LOC: ER 15:38
DX: S32.040A Wedge compression fracture of fourth lumbar vertebra, initial encounter for closed fracture (principal); S22.000A Wedge compression fracture of unspecified thoracic vertebra, initial encounter for closed fracture
CPT/HCPCS: 72131; 96374; 96375; 99284; J1170; J2405

== ENCOUNTER → 2018-03-16 | Outpatient (CLI) | payer MEDICARE, BC ==
[2016-01-11 12:16] VITALS: BMI 31.5
[2018-03-16 09:51] LABS: PLATELET COUNT, AUTOMATED 85 K/uL (150-450)
== END ==
LOC: LAB 08:51
PROVIDERS: ATTEND Internal Medicine Rheumatology
DX: M05.79 Rheumatoid arthritis with rheumatoid factor of multiple sites without organ or systems involvement (principal); Z79.899 Other long term (current) drug therapy
CPT/HCPCS: 36415; 82040; 82150; 82247; 82310; 82374; 82435; 82565; 82947; 83690; 84075; 84132; 84155; 84295; 84450; 84460; 84520; 85025; 85651

== ENCOUNTER → 2018-03-28 | Outpatient (CLI) | payer MEDICARE, BC ==
[2016-01-11 12:16] VITALS: BMI 31.5
--- NOTE | 2018-03-28 16:12 | RADIOLOGY IMAGING REPORT ---
FACILITY: [facility] PATIENT NAME: Juan Jose Lin : 1960 MR: [id number] V: [id number] EXAM DATE: ORDERING PHYSICIAN: SRINIVAS ZIMMER TECHNOLOGIST: Location: [facility] Patient: Juan Jose Lin : 1960 Visit/Account:[id number] Date of Sevice: 03/28/2018 DEXA Scan Clinical history: Osteopenia. Comparison: DEXA scan from 11/18/2017. LUMBAR SPINE: The bone mineral density (BMD) measured from L1-L4 correlates with a Z-score -2.1 and a T-score of - 3.1 which is osteoporosis as defined by the World Health Organization. The corresponding risk of fra cture in the lumbar spine is I compared with a young adult reference population. This value has incr eased by 4.2 % since the prior study. More than 5% change is considered significant. HIP: Bone mineral density (BMD) measured in the Left femoral neck region correlates with a Z-score -1.9 an d a T-score of -3.0 which is osteoporosis as defined by the World Health Organization. The corresp onding risk of fracture in the hip is high compared with a young adult reference population. The tota l hip value has decreased by 15.6 % since the prior study. More than 5% change is considered signifi cant. Bone mineral density (BMD) measured in the Femoral Neck region measures 0.545 g/cm2. IMPRESSION: 1. Lumbar spine: Osteoporosis. There has been increased in the bone mineral density since the previ ous exam. 2. Left femoral neck region: Osteoporosis. There has been decreased in the bone mineral density of the total hip since the previous exam. 3. Femoral Neck: Bone Mineral Density is 0.545 g/cm2 The next DEXA scan of this patient should include the following sites: L1-L4 and the left hip. FRAX? WHO Fracture Risk Assessment Tool link: <http://www.shef.ac.uk/FRAX/tool.jsp?locationValue=9> PLEASE NOTE: 1) The World Health Organization defines low BMD as follows: T-score Normal > -1 Osteopenia < -1 and > -2.5 Osteoporosis < -2.5 without fractures Established osteoporosis < -2.5 with fractures 2) In general, you may wish to consider: Diagnosis Treatment Follow-up DEXA Normal BMD Prevention 2-3 years Osteopenia Prevention/therapy 1-2 years Osteoporosis Therapy Yearly 3) Fracture risk estimated from the T-score is more accurate for vertebral fractures (often spontane ous) than for hip fractures. Report Dictated By: Meño Kennedy at 03/28/2018 4:06 PM Report E-Signed By: Meño Kennedy at 03/28/2018 4:08 PM WSN:[email or web address]
== END ==
LOC: RAD 03-23 14:07
PROVIDERS: ATTEND Internal Medicine Cardiovascular Disease
DX: Z78.0 Asymptomatic menopausal state (principal); Z87.81 Personal history of (healed) traumatic fracture; M81.0 Age-related osteoporosis without current pathological fracture
CPT/HCPCS: 77080

== ENCOUNTER → 2018-04-12 | Outpatient (CLI) | payer MEDICARE, BC ==
[2016-01-11 12:16] VITALS: BMI 31.5
[~2018-04-12] MED LIST changes: +FERR240T2 PO; -FERR240T23 PO
--- NOTE | 2018-04-12 14:20 | RADIOLOGY IMAGING REPORT ---
FACILITY: [facility] [place] PATIENT NAME: Juan Jose Lin : 1960 MR: [id number] V: [id number] EXAM DATE: ORDERING PHYSICIAN: SRINIVAS ZIMMER TECHNOLOGIST: Location: [facility] Patient: Juan Jose Lin : 1960 Visit/Account:[id number] Date of Sevice: 04/12/2018 Exam type: CHEST PA AND LAT History: Chronic diastolic heart failure Comparison: October 14, 2017 Findings: There are hypoventilatory changes. There is no evidence of focal infiltrates or overt pulmonary cody a. The cardiac silhouette is normal in size. There is a hiatal hernia present. There is an exagger ation of the normal thoracic kyphosis secondary to osteopenia and multiple compression fractures in t he thoracic spine that appears similar to the prior study. There also appears to be mild compression fracture of L1. Surgical clips are present right upper quadrant of abdomen IMPRESSION: 1. Hypoventilatory changes although no evidence of acute pulmonary consolidation Hiatal hernia Report Dictated By: Rebecca Jimenez MD at 04/12/2018 2:13 PM Report E-Signed By: Rebecca Jimenez MD at 04/12/2018 2:15 PM WSN:[email or web address]
--- NOTE | 2018-04-12 15:10 | RADIOLOGY IMAGING REPORT ---
[place] [facility] [place]: Juan Jose Lin : 1960 MR: [id number] V: [id number] EXAM DATE: ORDERING PHYSICIAN: SRINIVAS ZIMMER TECHNOLOGIST: Location: [facility] [place] Patient: Juan Jose Lin : 1960 Visit/Account:[id number] Date of Sevice: 04/12/2018 Nuclear Medicine Lung Ventilation and Perfusion Scan HISTORY: Pulmonary hypertension. History of previous pulmonary thromboembolism. TECHNIQUE: 31.5 mCi TcDTPA was placed in an aerosolizer, and the patient inhaled approximately one tenth of this dose. Gamma camera images of the chest were obtained in various orientations. 2.2 mCi Tc MAA was injected intravenously. Gamma camera images were obtained of the chest in the same orientation as the ventilation images. COMPARISON: Chest x-ray 04/12/2018 FINDINGS: Lung perfusion radiotracer distribution: Normal. There are no peripheral wedge-shaped perfusion def ects. Lung ventilation radiotracer distribution: Normal. There are no ventilation defects. Correlation to chest x-ray: Low lung volumes. No lung infiltrate or pleural effusions. IMPRESSION: Normal lung ventilation and perfusion. There is no evidence of acute or chronic pulmonary thromboembolism. Report Dictated By: Janet Long MD at 04/12/2018 2:58 PM Report E-Signed By: Janet Long MD at 04/12/2018 3:06 PM WSN:[id number]
== END ==
LOC: NUC 00:32
PROVIDERS: ATTEND Internal Medicine Cardiovascular Disease
DX: K44.9 Diaphragmatic hernia without obstruction or gangrene (principal); M85.89 Other specified disorders of bone density and structure, multiple sites; R91.8 Other nonspecific abnormal finding of lung field
CPT/HCPCS: 71046; 78582; A9540; A9567

== ENCOUNTER → 2018-04-18 | Outpatient (CLI) | payer MEDICARE, BC ==
[2016-01-11 12:16] VITALS: BMI 31.5
== END ==
LOC: LAB 13:22
PROVIDERS: ATTEND Family Medicine
DX: E03.9 Hypothyroidism, unspecified (principal)
CPT/HCPCS: 84443

== ENCOUNTER → 2018-04-18 | Outpatient (CLI) | payer MEDICARE, BC ==
[2016-01-11 12:16] VITALS: BMI 31.5
[2018-04-18 13:48] LABS: PLATELET COUNT, AUTOMATED 116 K/uL (150-450)
== END ==
LOC: LAB 13:19
PROVIDERS: ATTEND Internal Medicine Rheumatology
DX: M05.79 Rheumatoid arthritis with rheumatoid factor of multiple sites without organ or systems involvement (principal); Z79.899 Other long term (current) drug therapy
CPT/HCPCS: 36415; 82040; 82150; 82247; 82310; 82374; 82435; 82565; 82947; 83690; 84075; 84132; 84155; 84295; 84450; 84460; 84520; 85025; 85651

== ENCOUNTER → 2018-05-03 | Outpatient (CLI) | payer MEDICARE, BC ==
[2016-01-11 12:16] VITALS: BMI 31.5
[~2018-05-03] MED LIST changes: +REGADENOSON 0.4 MG/5 ML SYR ONE
--- NOTE | 2018-05-03 16:48 | RT STRESS TEST REPORT ---
FACILITY: [facility] PATIENT NAME: STEPHANI SHAW : [id number] MR: [id number] V: [id number] EXAM DATE: ORDERING PHYSICIAN: SRINIVAS ZIMMER TECHNOLOGIST: Alphonse Acquisition Time: 2018-05-03 14:37:42 Total Exercise Time: 00:01:00 Test Indications: CHRONIC CHF Medications: SEE NUCLEAR MED SHEET Protocol: LEXISCAN Max HR: 114 BPM 70% of Pred: 162 BPM Max BP: 129/091 mmHG Max Work Load: 1.0 METS Nondiagnostic EKG portion of nuclear stress test. Await radiology portion. Confirmed by Michael Evans ([id number]) on 05/03/2018 4:48:03 PM Referred By: Overread By: Michael Wilson
--- NOTE | 2018-05-04 15:43 | RADIOLOGY IMAGING REPORT ---
FACILITY: [facility] [place] PATIENT NAME: Juan Jose Lin : 1960 MR: [id number] V: [id number] EXAM DATE: ORDERING PHYSICIAN: SRINIVAS ZIMMER TECHNOLOGIST: Location: [facility] Patient: Juan Jose Lin : 1960 Visit/Account:[id number] Date of Sevice: 05/03/2018 EXAMINATION: Single isotope SPECT imaging with regadenoson infusion and gated SPECT imaging. DATE OF EXAMINATION: 05/03/2018. DATE OF INTERPRETATION: 05/04/2018. REQUESTING PHYSICIAN: SRINIVAS ZIMMER. INDICATION: The patient is a 57-year-old female evaluated for heart failure. PROCEDURE: After informed consent the patient received an intravenous injection of 11.1 mCi of Tc-99 m sestamibi followed at an appropriate time interval by rest imaging. The patient then subsequently received an intravenous infusion of 0.4 mg of regadenoson per protocol without complication. Resting heart rate was 93 bpm with a peak heart rate of 114 bpm. Blood pressure at rest was 129 / 91 and fo llowing infusion was 129 / 91. Baseline EKG demonstrates normal sinus rhythm, nonspecific ST changes in the inferior leads. There were persistent ST segment abnormalities in the inferior leads with st ress. Symptoms were nonspecific. The patient then received an intravenous injection of 29.3 mCi of Tc-99m sestamibi followed by stress imaging. RAW DATA: Examination of the summed raw data revealed a good quality study. MYOCARDIAL PERFUSION: The tomographic images demonstrate no evidence of infarct or ischemia. GATED IMAGES: The gated images demonstrate hyperdynamic ejection fraction reported at 97%. IMPRESSION: 1. Good quality study 2. Normal myocardial perfusion scan. 3. Hyperdynamic LV systolic function; LVEF 97%. 4. Based on the results of this exam, the patient appears to be at low risk for future cardiovascular events but remains intermediate risk due to inability to exercise. Report Dictated By: Jose Miguel Montgomery at 05/04/2018 3:35 PM Report E-Signed By: Jose Miguel Montgomery at 05/04/2018 3:39 PM WSN:[id number]
== END ==
LOC: NUC 00:35
PROVIDERS: ATTEND Internal Medicine Cardiovascular Disease
DX: I50.32 Chronic diastolic (congestive) heart failure (principal)
CPT/HCPCS: 78452; 93017; A9500; J2785

== ENCOUNTER → 2018-05-19 | Outpatient (CLI) | payer MEDICARE, BC ==
[2016-01-11 12:16] VITALS: BMI 31.5
[~2018-05-19] MED LIST changes: -REGADENOSON 0.4 MG/5 ML SYR ONE
[2018-05-19 14:31] LABS: PLATELET COUNT, AUTOMATED 111 K/uL (150-450)
== END ==
LOC: LAB 13:48
PROVIDERS: ATTEND Internal Medicine Rheumatology
DX: Z79.899 Other long term (current) drug therapy (principal); M05.79 Rheumatoid arthritis with rheumatoid factor of multiple sites without organ or systems involvement
CPT/HCPCS: 36415; 82040; 82150; 82247; 82310; 82374; 82435; 82565; 82947; 83690; 84075; 84132; 84155; 84295; 84450; 84460; 84520; 85025; 85651

== ENCOUNTER → 2018-05-19 | Outpatient (CLI) | payer MEDICARE, BC ==
[2016-01-11 12:16] VITALS: BMI 31.5
== END ==
LOC: LAB 14:05
PROVIDERS: ATTEND Internal Medicine Hematology
DX: D61.818 Other pancytopenia (principal); D69.6 Thrombocytopenia, unspecified
CPT/HCPCS: 36415; 82728; 83540; 83550

== ENCOUNTER → 2018-05-19 | Outpatient (CLI) | payer MEDICARE, BC ==
[2016-01-11 12:16] VITALS: BMI 31.5
== END ==
LOC: LAB 13:49
PROVIDERS: ATTEND Internal Medicine Cardiovascular Disease
DX: I50.32 Chronic diastolic (congestive) heart failure (principal)
CPT/HCPCS: 83880

== ENCOUNTER 2018-05-26 07:07 | Outpatient (RCR) | payer MEDICARE, BC ==
[2016-01-11 12:16] VITALS: Wt 65.0 kg
[~2018-05-26 07:07] MED LIST changes: -ALEN70TA2 PO; +ALEN70TA46 PO
[2018-05-26 10:38] VITALS: BP 118/76
--- NOTE | 2018-05-26 14:47 | [facility] ONCOLOGY NOTE ---
EVENT DATE: May 26, 2018 DIAGNOSES 1. Pancytopenia. 2. Microcytic anemia. 3. Thrombocytopenia. 4. Systemic lupus erythematosus/rheumatoid arthritis. 5. Seizure disorder. 6. Hypothyroidism. 7. History of deep venous thrombosis and pulmonary embolism. CHIEF COMPLAINT Patient is here today for followup of her pancytopenia and iron deficiency. HEMATOLOGY HISTORY Juan Jose Lin is a 57-year-old female who has been diagnosed with systemic lupus/rheumatoid arthritis for the last 15 years. The patient is aware she is anemic for the last year. She received iron supplement in the past without improvement. Her blood count on April 26, 2014, did reveal a white count of 3.6, hemoglobin 9.2, hematocrit 32, MCV 72.2, and platelets 99,000. Her creatinine is normal at 0.6. The patient currently is maintained on Plaquenil, methotrexate, and Orencia. Iron studies showed a serum ferritin of 52, within the normal range; serum iron 37; TIBC 311; iron saturation 11.9. Erythropoietin was a little high at 29, which is low for the degree of the anemia. Vitamin B12 level, methylmalonic acid assay, folate level, and red cell folate all within normal range. Serum protein electrophoresis showed normal pattern. ESR was normal at 18. CBC showed a white count 2.9, hemoglobin 10.9, hematocrit 35.9, platelets 107,000. Soluble transferrin receptor assay came back high at 6.7, confirming the diagnosis of iron deficiency anemia. Flow cytometry of the peripheral blood did reveal mature T cells that show coag suppression of CD4 and CD8 which has uncertain significance as it is only 4% of the cells that have this coag suppression, and it could be present in 50% of otherwise healthy individuals. Ultrasound of spleen done on July 15, 2014, showed mild splenomegaly, and splenic size was 14.5 cm. No splenic mass or perisplenic fluid collections. Bone marrow aspiration biopsy for evaluation of the pancytopenia done on December 04, 2014, did show normocellular bone marrow with cellularity 40% to 45% with megakaryocytic hyperplasia with ITP-like cytologic features. There is active normoblastic erythropoiesis and ongoing granulopoiesis with no dysmaturation and/or excess of blasts. There is mild polyclonal plasmocytosis. There is trace of reduced iron stores with no ringed sideroblast. No evidence of granulomas or metastatic neoplasm. HISTORY OF PRESENT ILLNESS Patient is here today for followup of her pancytopenia and iron deficiency. She is complaining of generalized joint pains due to rheumatoid arthritis and systemic lupus. Patient also has recently lower back pain because of compression fracture of T11, T12, lumbar 4, and lumbar 5 after cough. She started treatment for osteoporosis recently. PAST MEDICAL HISTORY 1. Systemic lupus erythematosus/rheumatoid arthritis. 2. Anemia. 3. Seizure disorder. 4. Hypothyroidism. 5. History of DVT/PE. Her DVT was in the left lower extremity. PAST SURGICAL HISTORY 1. She had hysterectomy for cervical cancer in June 1996. 2. Cholecystectomy in April 2005. SOCIAL HISTORY The patient is . She has four children and two stepchildren. She is a housewife. Denies any abuse of tobacco, alcohol, or drugs. FAMILY HISTORY Paternal grandmother had breast cancer, and great-grandfather had melanoma. Father had skin cancer. CURRENT MEDICATIONS 1. Pradaxa 150 mg daily. 2. Levothyroxine 175 mcg daily. 3. Dilantin 100 mg two tablets daily. 4. Lasix 40 mg one to two a day. 5. Plaquenil 200 mg twice daily. 6. Methotrexate 2.5 mg four tablets weekly. 7. Folic acid 400 mcg six per week. 8. Mucinex 600 mg twice daily. 9. Orencia 125 mg shot every week. 10. Ibuprofen as needed. ALLERGIES PENICILLIN which causes hives. SUDAFED which causes seizures. REVIEW OF SYSTEMS CONSTITUTIONAL: No appetite or weight change. No fever, chills, or sweating. No recent infection. HEENT: Ears: No tinnitus or hearing problem. Nose: No nasal discharge or epistaxis. Throat: No sore throat or mouth ulcers. Eyes: No diplopia or visual changes. RESPIRATORY: No shortness of breath. No cough, expectoration, or hemoptysis. CARDIOVASCULAR: No chest pain, orthopnea, or paroxysmal nocturnal dyspnea (PND). No edema. No palpitations. GASTROINTESTINAL: No nausea or vomiting. No diarrhea or constipation. No change in bowel movements. No heartburn or swallowing difficulties. No abdominal pain. No jaundice. No hematemesis, melena, or rectal bleeding. GENITOURINARY: No hematuria or dysuria. MUSCULOSKELETAL: Patient has generalized joint pain from her rheumatoid arthritis/systemic lupus. She is complaining also of lower back pain recently after compression fracture of T11, T12, lumbar 4, lumbar 5 after cough, and patient started treatment with alendronate. NEUROLOGICAL: No tingling or numbness in the hands or feet. No headaches or convulsions. HEMATOLOGIC/LYMPHATIC: No bleeding or easy bruising. No weakness or fatigue. No enlarged lymph nodes. SKIN: No skin rash or lumps. PSYCHIATRIC: No anxiety or depression. PHYSICAL EXAMINATION GENERAL: Looks stable. Well developed, well nourished, and in no acute distress. VITAL SIGNS: Blood pressure 118/76, pulse 91 per minute, respirations 18 per minute, temperature 98, pulse ox 95% on 1.5L oxygen. HEENT: Head: Atraumatic. No sinus tenderness to palpation. Eyes: No icterus or conjunctivitis. Mouth and throat: No oral thrush or mucositis. NECK: Supple. No cervical or supraclavicular lymphadenopathy. LUNGS: Clear to auscultation and percussion bilaterally. HEART: Regular rate and rhythm. No gallops, murmurs, clicks, or rubs. ABDOMEN: Soft and lax. No tenderness. No hepatosplenomegaly. No masses. EXTREMITIES: No cyanosis, clubbing, or edema. LYMPHATICS: No peripheral lymphadenopathy. NEUROLOGICAL: Conscious, alert, and oriented times three. No focal motor or sensory deficits. PSYCHIATRIC: Mood and affect appear normal. SKIN: No skin rash, bruise, or purpuric eruption. DIAGNOSTIC DATA CBC showed white count 6.1, hemoglobin 13.1, hematocrit 39.3, MCV is 93.1, and platelet count 111,000. Chem panel totally normal except total protein 6.1. Serum iron 176, TIBC is 307, iron saturation 57.3%, and ferritin 181. ASSESSMENT 1. Pancytopenia with leukocytopenia, thrombocytopenia with normal workup with B12, folate, methylmalonic acid assay, red cell folate, and serum protein immunoelectrophoresis. Ultrasound of the abdomen showed mild splenomegaly with spleen size 14.5 cm. Bone marrow aspiration biopsy did not show any evidence of myelodysplastic syndrome, leukemia, lymphoma, or bone marrow infiltration. There was megakaryocytic hyperplasia consistent with peripheral destruction of the platelets, which could be due to either splenomegaly or idiopathic thrombocytopenia. Current platelet count 111,000, which is stable and safe. Hemoglobin is 13.1 g/dL, and white count is 6.1. All are stable. I am planning to continue followup. I will see her again in six months with CBC at that time. 2. Iron deficiency anemia with high soluble transferrin receptor assay at 6.7. Patient had received Injectafer with normalization of her iron studies and the hemoglobin, which is stable currently. Her hemoglobin is 13.1 g/dL, and her iron studies are totally normal. I am planning to repeat her iron studies in six months. 3. Systemic lupus erythematosus/rheumatoid arthritis, currently on treatment. 4. Seizure disorder, on treatment. 5. Hypothyroidism, on Synthroid. 6. History of deep venous thrombosis, left lower extremity, and pulmonary embolism. PLAN 1. Continue followup. 2. Patient to return in six months with CBC and iron studies with ferritin. 3. Patient to contact us for any new concerns or complaints. BRADLEY
[2018-06-01] MEDS ORDERED: LEVO75TA73 PO (08:01)
[2018-06-01] MEDS ORDERED: SULF-198 PO (10:49)
== END 2018-06-12 15:40 | disposition home or self-care (01) ==
LOC: ONC 07:07
PROVIDERS: ATTEND Internal Medicine Hematology
DX: M05.79 Rheumatoid arthritis with rheumatoid factor of multiple sites without organ or systems involvement (principal); D61.818 Other pancytopenia; D72.819 Decreased white blood cell count, unspecified; M32.9 Systemic lupus erythematosus, unspecified; G40.909 Epilepsy, unspecified, not intractable, without status epilepticus; E03.9 Hypothyroidism, unspecified; Z86.718 Personal history of other venous thrombosis and embolism; Z86.711 Personal history of pulmonary embolism; R53.1 Weakness; R53.83 Other fatigue; R05 Cough; R06.02 Shortness of breath; K59.00 Constipation, unspecified; Z79.899 Other long term (current) drug therapy; M54.5 Low back pain; S22.080A Wedge compression fracture of T11-T12 vertebra, initial encounter for closed fracture
CPT/HCPCS: 99212

== ENCOUNTER 2018-06-01 07:43 | Emergency (ER) | payer MEDICARE, BC ==
[2016-01-11 12:16] VITALS: Wt 63.7 kg
[2018-06-01] MEDS ORDERED: LEVO75TA73 PO (08:01)
--- NOTE | 2018-06-01 08:02 | ER Report ---
History and Physical Time Seen By MD: 08:02 Hx. of Stated Complaint: SWELLING IN L ANKLE, HOT AND RED, SINCE TUESDAY WHEN CELLPHONE FELL ON FOOT HPI/ROS CHIEF COMPLAINT: swelling and pain in ankle HISTORY OF PRESENT ILLNESS: This is a 57 year old female. She had a cell phone fall and hit the inside of her left lower leg last Tuesday. This raised a bruise and a small central area that was more tender and raised. The whole area has become red and hot and more painful this morning. No fevers or chills. She has normal sensation in the area and has normal movement of the foot. Denies and problems with shortness of breath, chest pain, nausea or vomiting. Allergies: Coded Allergies: Penicillins (Verified Allergy, Intermediate, HIVES, 02/09/18) levofloxacin (Verified Allergy, Intermediate, SEIZURE, 02/09/18) metronidazole (Verified Allergy, Intermediate, SEIZURE, 02/09/18) morphine (Verified Allergy, Intermediate, NAUSEA , 02/09/18) WITH IV ROUTE promethazine (Verified Allergy, Mild, NAUSEA, 02/09/18) pseudoephedrine (Verified Adverse Reaction, Severe, CAUSES SEIZURES, 02/09/18) doxycycline (Verified Adverse Reaction, Intermediate, VOMITING, 02/09/18) Home Meds Active Scripts Sulfamethoxazole/Trimet 800-160 Mg Tab (BACTRIM DS TABLET) 1 Each Tablet, 1 TAB PO Q12H, #14 TAB 0 Refills Prov:DELIA POSEY MD 06/01/18 Cyclobenzaprine Hcl (CYCLOBENZAPRINE HCL) 10 Mg Tablet, 10 MG PO Q8H PRN for MUSCLE SPASMS, #20 TAB 0 Refills Prov:DELIA POSEY MD 01/24/18 Hydrocodone Bit/Acetaminophen (HYDROCODON-ACETAMINOPHEN 5-325) 1 Each Tablet, 1 EACH PO Q4H PRN for PAIN, #12 TAB 0 Refills Prov:DELIA POSEY MD 09/21/16 Ondansetron (ZOFRAN ODT) 4 Mg Tab.rapdis, 4 MG PO Q6H PRN for NAUSEA/VOMITING, #20 TAB.LIZBETH 0 Refills Prov:DELIA POSEY MD 09/21/16 Reported Medications Levothyroxine Sodium (LEVOTHYROXINE SODIUM) 75 Mcg Tablet, 124 MCG PO QDAY, TAB 06/01/18 Rivaroxaban 20 Mg (XARELTO 20 MG) 20 Mg Tablet, 20 MG PO DAILY, TAB 10/14/17 Potassium Chloride (POTASSIUM CHLORIDE) 10 Meq Capsule.er, 20 MEQ PO DAILY 10/14/17 Ferrous Sulfate (FEOSOL) 325 Mg Tablet, 325 MG PO DAILY 10/14/17 Bumetanide (BUMETANIDE) 1 Mg Tablet, 1 MG PO BID 10/14/17 Bumetanide (BUMETANIDE) 2 Mg Tab, 2 MG PO QDAY, TAB 05/24/17 Spironolactone (SPIRONOLACTONE) 50 Mg Tablet, 50 MG PO BID 05/24/17 Hydroxychloroquine Sulfate (PLAQUENIL) 200 Mg Tablet, 200 MG PO BID 09/21/16 Guaifenesin (MUCINEX) 600 Mg Tablet.er, 600 MG PO BID 08/05/16 Rituximab (RITUXAN) 100 Mg/10 Ml Soln, 100 MG IV 05/06/16 Oxygen (Oxygen) 2 L Inha, 1.5 L INH DAILY, 0 Refills 07/25/10 Discontinued Reported Medications Guaifenesin (MUCINEX) 600 Mg Tablet.er, 600 MG PO 11/25/17 Prednisone (PREDNISONE) 5 Mg Tab.ds.pk, 5 MG PO QDAY 05/24/17 Levothyroxine Sodium (LEVOTHYROXINE SODIUM) 150 Mcg Tablet, 125 MCG PO QDAY 05/24/17 Discontinued Scripts Cyclobenzaprine Hcl (CYCLOBENZAPRINE HCL) 10 Mg Tablet, 10 MG PO TID PRN for MUSCLE SPASMS, #30 TAB Prov:EMELIA WADSWORTH APPLICATION ASSISTANT 02/09/18 Reviewed Nurses Notes: Yes Hx Smoking: No Smoking Status: Never Smoker Exposure to Second Hand Smoke?: No Hx Substance Use Disorder: No Hx Alcohol Use: No Constitutional Vital Sign - Last 24 Hours 06/01/18 06/01/18 06/01/18 06/01/18 07:43 07:51 07:52 07:58 Temp 98.1 Pulse ??? 96 95 Resp 16 B/P (MAP) 132/78 (96) 132/78 Pulse Ox 100 100 O2 Delivery Nasal Cannula 06/01/18 06/01/18 06/01/18 06/01/18 08:13 08:28 08:30 08:43 Pulse 93 91 88 B/P (MAP) 117/75 (89) Pulse Ox 98 100 100 06/01/18 06/01/18 06/01/18 06/01/18 08:58 09:00 09:13 09:28 Pulse 81 85 88 B/P (MAP) 118/70 (86) Pulse Ox 100 100 06/01/18 06/01/18 06/01/18 06/01/18 09:30 09:35 09:50 10:00 Pulse 88 87 B/P (MAP) 114/62 (79) 114/69 (84) Pulse Ox 100 96 06/01/18 06/01/18 06/01/18 06/01/18 10:05 10:30 10:35 10:50 Pulse 89 90 91 B/P (MAP) 115/69 (84) Pulse Ox 98 98 95 06/01/18 06/01/18 10:59 11:00 Temp 98.3 B/P (MAP) 115/68 (84) Physical Exam General Appearance: The patient is alert. No acute distress. Respiratory: Breathing easily and unlabored. Cardiovascular: Regular rate and rhythm. Normal capillary refill. Normal PT and DP pulses. Neurological: Alert and oriented x3. No changes in sensation in her foot, normal neuropathy. Skin: Warm and dry. Medial side of lower leg with what looks like bruising with small central hematoma. Surrounding area of redness and warmth in this area of the ankle. Painful to palpation. Musculoskeletal: Normal range of motion. DIFFERENTIAL DIAGNOSIS: After history and physical exam, differential diagnosis was considered for area on leg that looks like hematoma and bruising, now looking like it is secondarily infected. Medical Decision Making Data Points Result Diagram: 06/01/18 0841 06/01/18 0841 Laboratory Hematology Test 06/01/18 08:41 Red Blood Count 4.19 M/uL (4.17-5.56) Mean Corpuscular Volume 91.9 fL (80.0-96.0) Mean Corpuscular Hemoglobin 30.8 pg (26.0-33.0) Mean Corpuscular Hemoglobin Concent 33.5 g/dL (32.0-36.0) Red Cell Distribution Width 12.7 % (11.5-14.5) Mean Platelet Volume 10.9 fL (7.2-11.1) Neutrophils (%) (Auto) 71.4 % (39.4-72.5) Lymphocytes (%) (Auto) 16.8 % (17.6-49.6) Monocytes (%) (Auto) 11.0 % (4.1-12.4) Eosinophils (%) (Auto) 0.1 % (0.4-6.7) Basophils (%) (Auto) 0.7 % (0.3-1.4) Nucleated RBC Relative Count (auto) 0.0 /100WBC Neutrophils # (Auto) 3.4 K/uL (2.0-7.4) Lymphocytes # (Auto) 0.8 K/uL (1.3-3.6) Monocytes # (Auto) 0.5 K/uL (0.3-1.0) Eosinophils # (Auto) 0.0 K/uL (0.0-0.5) Basophils # (Auto) 0.0 K/uL (0.0-0.1) Nucleated RBC Absolute Count (auto) 0.00 K/uL Sodium Level 136 mmol/L (137-145) Potassium Level 3.1 mmol/L (3.5-5.0) Chloride Level 93 mmol/L (98-107) Carbon Dioxide Level 34 mmol/L (22-31) Blood Urea Nitrogen 9 mg/dl (7-18) Creatinine 0.60 mg/dl (0.52-1.04) Glomerular Filtration Rate Calc > 60.0 Random Glucose 115 mg/dl (75-110) Calcium Level 8.7 mg/dl (8.4-10.2) Total Bilirubin 0.5 mg/dl (0.2-1.3) Aspartate Amino Transf (AST/SGOT) 29 U/L (0-35) Alanine Aminotransferase (ALT/SGPT) 28 U/L (0-56) Alkaline Phosphatase 77 U/L (0-126) Total Protein 6.2 g/dl (6.3-8.2) Albumin 3.5 g/dl (3.5-5.0) Chemistry Test 06/01/18 08:41 White Blood Count 4.8 k/uL (4.5-11.0) Red Blood Count 4.19 M/uL (4.17-5.56) Hemoglobin 12.9 g/dL (12.0-16.0) Hematocrit 38.5 % (34.0-47.0) Mean Corpuscular Volume 91.9 fL (80.0-96.0) Mean Corpuscular Hemoglobin 30.8 pg (26.0-33.0) Mean Corpuscular Hemoglobin Concent 33.5 g/dL (32.0-36.0) Red Cell Distribution Width 12.7 % (11.5-14.5) Platelet Count 97 K/uL (150-450) Mean Platelet Volume 10.9 fL (7.2-11.1) Neutrophils (%) (Auto) 71.4 % (39.4-72.5) Lymphocytes (%) (Auto) 16.8 % (17.6-49.6) Monocytes (%) (Auto) 11.0 % (4.1-12.4) Eosinophils (%) (Auto) 0.1 % (0.4-6.7) Basophils (%) (Auto) 0.7 % (0.3-1.4) Nucleated RBC Relative Count (auto) 0.0 /100WBC Neutrophils # (Auto) 3.4 K/uL (2.0-7.4) Lymphocytes # (Auto) 0.8 K/uL (1.3-3.6) Monocytes # (Auto) 0.5 K/uL (0.3-1.0) Eosinophils # (Auto) 0.0 K/uL (0.0-0.5) Basophils # (Auto) 0.0 K/uL (0.0-0.1) Nucleated RBC Absolute Count (auto) 0.00 K/uL Glomerular Filtration Rate Calc > 60.0 Calcium Level 8.7 mg/dl (8.4-10.2) Total Bilirubin 0.5 mg/dl (0.2-1.3) Aspartate Amino Transf (AST/SGOT) 29 U/L (0-35) Alanine Aminotransferase (ALT/SGPT) 28 U/L (0-56) Alkaline Phosphatase 77 U/L (0-126) Total Protein 6.2 g/dl (6.3-8.2) Albumin 3.5 g/dl (3.5-5.0) EKG/Imaging Imaging US SOFT TISSUE NON-SPECIFIC HISTORY: left leg hematoma, red/swollen/hot Focused examination of the left leg along the medial aspect inferiorly. FINDINGS: There is a next hypoechoic mass along the subcutaneous soft tissues in the left lower leg medially measuring 2 x 1 cm in size. No internal vascularity. Minimal vascularity peripheral. IMPRESSION: 1. Soft tissue subcutaneous changes at the point of clinical concern likely representing a subcutaneous hematoma. Recommend clinical correlation and appropriate follow-up. Report Dictated By: Wing Waite MD at 06/01/2018 11:56 AM US VENOUS LOWER EXT LT HISTORY: leg with redness, swelling and pain EXAMINATION: Unilateral lower extremity deep vein duplex Doppler ultrasound Additional Pertinent history: none COMPARISON STUDIES: none FINDINGS: Grayscale compression, duplex and color Doppler interrogation of the left lower extremity deep veins from common femoral vein to proximal calf was performed. The greater saphenous vein was evaluated using similar technique. Common femoral vein negative Femoral vein negative Deep femoral vein - negative Popliteal vein negative Visualized deep calf veins peroneal vein not visualized. Greater saphenous vein in the proximal thigh negative Popliteal fossa: negative Left inguinal lymph nodes seen with normal morphology IMPRESSION: 1. Negative left leg for DVT. Peroneal vein in the calf not visualized. Report Dictated By: Wing Waite MD at 06/01/2018 12:02 PM ED Course/Re-evaluation ED Course Labs obtained, normal white count and electrolytes. Ultrasounds obtained. Negative for DVT. There is a complex fluid collection, likely hematoma, but with new cellulitic changes surrounding, worried about infection in this area. Discussed this with the patient and decided to do an incision and drainage. Did not look like infected fluid. Cultures obtained. Starting on Bactrim. Will follow-up with PCP. Procedure: Incision and drainage of infected hematoma. The patient's abscess was located on the left medial lower leg. I obtained verbal consent from the patient to drain the abscess who was informed about the possibility of bleeding and pain. Local anesthetic with 1% lidocaine with epinephrine. The abscess was incised with a scalpel and moderate amount of serous/bloody drainage and a clot was expressed. I irrigated the wound. No purulent drainage noted. Wound cultures taken from the hematoma on initial incision, aerobic and anaerobic. The patient tolerated the procedure well. The procedure was performed by myself. Decision to Disposition Date: Jun 01, 2018 Decision to Disposition Time: 10:44 Depart Departure Latest Vital Signs Vital Signs Date Time Temp Pulse Resp B/P (MAP) Pulse Ox O2 Delivery O2 Flow Rate FiO2 06/01/18 11:00 98.3 06/01/18 10:59 115/68 (84) 06/01/18 10:50 91 95 06/01/18 07:52 16 Nasal Cannula Impression: Primary Impression: Hematoma Additional Impression: Cellulitis Condition: Improved Disposition: HOME OR SELF-CARE Referrals: ZOHREH QUIJANO DO (PCP) New Scripts Sulfamethoxazole/Trimet 800-160 Mg Tab (BACTRIM DS TABLET) 1 Each Tablet 1 TAB PO Q12H, #14 TAB 0 Refills Prov: DELIA POSEY MD 06/01/18 Patient Instructions: Cellulitis (ED), Hematoma (ED) Additional Instructions: Rest and keep leg elevated while at rest. Apply a heating pad to the leg to help this resolve more quickly Take the antibiotic Bactrim DS twice a day for 7 days. Wash the wound twice a day with soap and water, apply a small amount of antibiotic ointment and a dressing. Problem Qualifiers Additional Impression: Cellulitis Site of cellulitis: extremity Site of cellulitis of extremity: lower extremity Laterality: left Qualified Codes: L03.116 - Cellulitis of left lower limb DELIA POSEY MD Jun 01, 2018 08:02
[2018-06-01 08:47] LABS: PLATELET COUNT, AUTOMATED 97 K/uL (150-450)
[2018-06-01] MEDS ORDERED: HYDROMORPHONE HCL 1 MG/ML SYRINGE IVP ONE (09:25)
[2018-06-01] MEDS ORDERED: ONDANSETRON 4 MG/2 ML VIAL IVP ONE (09:35)
[2018-06-01] MEDS ORDERED: SULF-198 PO (10:49)
[2018-06-01 10:59] VITALS: BP 115/68
--- NOTE | 2018-06-01 12:02 | RADIOLOGY IMAGING REPORT ---
FAC[place] [facility] [place]IENT NAME: Juan Jose Lin : 1960 MR: [id number] V: [id number] EXAM DATE: ORDERING PHYSICIAN: DELIA POSEY TECHNOLOGIST: Location: [facility] Patient: Juan Jose Lin : 1960 Visit/Account:[id number] Date of Sevice: 06/01/2018 US SOFT TISSUE NON-SPECIFIC HISTORY: left leg hematoma, red/swollen/hot Focused examination of the left leg along the medial aspect inferiorly. FINDINGS: There is a next hypoechoic mass along the subcutaneous soft tissues in the left lower leg medially me asuring 2 x 1 cm in size. No internal vascularity. Minimal vascularity peripheral. IMPRESSION: 1. Soft tissue subcutaneous changes at the point of clinical concern likely representing a subcutane ous hematoma. Recommend clinical correlation and appropriate follow-up. Report Dictated By: Wing Waite MD at 06/01/2018 11:56 AM Report E-Signed By: Wing Waite MD at 06/01/2018 11:58 AM WSN:TA
--- NOTE | 2018-06-01 12:08 | RADIOLOGY IMAGING REPORT ---
FACILITY: [facility] PATIENT NAME: Juan Jose Lin : 1960 MR: [id number] V: [id number] EXAM DATE: ORDERING PHYSICIAN: DELIA POSEY TECHNOLOGIST: Location: [facility] [place] Patient: Juan Jose Lin : 1960 Visit/Account:[id number] Date of Sevice: 06/01/2018 US VENOUS LOWER EXT LT HISTORY: leg with redness, swelling and pain EXAMINATION: Unilateral lower extremity deep vein duplex Doppler ultrasound Additional Pertinent history: none COMPARISON STUDIES: none FINDINGS: Grayscale compression, duplex and color Doppler interrogation of the left lower extremity deep veins from common femoral vein to proximal calf was performed. The greater saphenous vein was evaluated usi ng similar technique. Common femoral vein negative Femoral vein negative Deep femoral vein - negative Popliteal vein negative Visualized deep calf veins peroneal vein not visualized. Greater saphenous vein in the proximal thigh negative Popliteal fossa: negative Left inguinal lymph nodes seen with normal morphology IMPRESSION: 1. Negative left leg for DVT. Peroneal vein in the calf not visualized. Report Dictated By: Wing Waite MD at 06/01/2018 12:02 PM Report E-Signed By: Wing Waite MD at 06/01/2018 12:04 PM WSN:TA
== END 2018-06-01 11:05 | disposition home or self-care (01) ==
LOC: ER 08:00
DX: L03.116 Cellulitis of left lower limb (principal); S80.12XA Contusion of left lower leg, initial encounter
CPT/HCPCS: 10060; 36415; 76999; 85025; 87070; 87073; 93971; 96374; 96375; 99284; J1170; J2405; 82040; 82247; 82310; 82374; 82435; 82565; 82947; 84075; 84132; 84155; 84295; 84450; 84460; 84520

== ENCOUNTER → 2018-06-21 | Outpatient (CLI) | payer MEDICARE, BC ==
[2016-01-11 12:16] VITALS: BMI 31.5
[~2018-06-21] MED LIST changes: +LEVO75TA73 PO; +SULF-198 PO
== END ==
LOC: LAB 11:48
PROVIDERS: ATTEND Family Medicine
DX: E03.9 Hypothyroidism, unspecified (principal)
CPT/HCPCS: 84443

== ENCOUNTER → 2018-06-21 | Outpatient (CLI) | payer MEDICARE, BC ==
[2016-01-11 12:16] VITALS: BMI 31.5
== END ==
LOC: LAB 15:26
PROVIDERS: ATTEND Internal Medicine Rheumatology
DX: M05.79 Rheumatoid arthritis with rheumatoid factor of multiple sites without organ or systems involvement (principal); Z79.899 Other long term (current) drug therapy
CPT/HCPCS: 84450; 85027; 85651

== ENCOUNTER → 2018-06-21 | Outpatient (CLI) | payer MEDICARE, BC ==
[2016-01-11 12:16] VITALS: BMI 31.5
== END ==
LOC: LAB 11:54
PROVIDERS: ATTEND Internal Medicine Cardiovascular Disease
DX: I50.32 Chronic diastolic (congestive) heart failure (principal)
CPT/HCPCS: 36415; 82310; 82374; 82435; 82565; 82947; 83880; 84132; 84295; 84520

== ENCOUNTER → 2018-07-20 | Outpatient (CLI) | payer MEDICARE, BC ==
[2016-01-11 12:16] VITALS: BMI 31.5
== END ==
LOC: LAB 15:46
PROVIDERS: ATTEND Internal Medicine Rheumatology
DX: M05.79 Rheumatoid arthritis with rheumatoid factor of multiple sites without organ or systems involvement (principal); Z79.899 Other long term (current) drug therapy
CPT/HCPCS: 36415; 82565; 84450; 85027; 85651

== ENCOUNTER → 2018-09-01 | Outpatient (CLI) | payer MEDICARE, BC ==
[2016-01-11 12:16] VITALS: BMI 31.5
== END ==
LOC: LAB 14:20
PROVIDERS: ATTEND Internal Medicine Rheumatology
DX: Z79.899 Other long term (current) drug therapy (principal)
CPT/HCPCS: 82565; 84450; 85027; 85651

== ENCOUNTER → 2018-09-01 | Outpatient (CLI) | payer MEDICARE, BC ==
[2016-01-11 12:16] VITALS: BMI 31.5
== END ==
LOC: LAB 14:27
PROVIDERS: ATTEND Internal Medicine Cardiovascular Disease
DX: I50.32 Chronic diastolic (congestive) heart failure (principal)
CPT/HCPCS: 36415; 82310; 82374; 82435; 82565; 82947; 83880; 84132; 84295; 84520

== ENCOUNTER → 2018-10-12 | Outpatient (CLI) | payer MEDICARE, BC ==
[2016-01-11 12:16] VITALS: BMI 31.5
== END ==
LOC: LAB 14:37
PROVIDERS: ATTEND Internal Medicine Rheumatology
DX: I50.32 Chronic diastolic (congestive) heart failure (principal); Z79.899 Other long term (current) drug therapy; M05.779 Rheumatoid arthritis with rheumatoid factor of unspecified ankle and foot without organ or systems involvement
CPT/HCPCS: 36415; 82565; 84450; 85027; 85651

== ENCOUNTER → 2018-11-02 | Outpatient (CLI) | payer MEDICARE, BC ==
[2016-01-11 12:16] VITALS: BMI 31.5
[~2018-11-02] MED LIST changes: -BUM2 PO; -BUME1TAB19 PO; +BUME1TAB21 PO; +BUME2TAB17 PO
== END ==
LOC: LAB 11:46
PROVIDERS: ATTEND Internal Medicine Rheumatology
DX: R05 Cough (principal); Z79.899 Other long term (current) drug therapy
CPT/HCPCS: 36415; 86480

== ENCOUNTER → 2018-11-28 | Outpatient (CLI) | payer MEDICARE, BC ==
[2016-01-11 12:16] VITALS: BMI 31.5
[~2018-11-28] MED LIST changes: +ALEN70TA43 PO; +APIX5TAB PO
== END ==
LOC: LAB 11:30
PROVIDERS: ATTEND Internal Medicine Cardiovascular Disease
DX: I50.32 Chronic diastolic (congestive) heart failure (principal)
CPT/HCPCS: 82310; 82374; 82435; 82565; 82947; 84132; 84295; 84520

== ENCOUNTER → 2018-11-28 | Outpatient (CLI) | payer MEDICARE, BC ==
[2016-01-11 12:16] VITALS: BMI 31.5
[2018-11-28 12:03] LABS: PLATELET COUNT, AUTOMATED 123 K/uL (150-450)
== END ==
LOC: LAB 11:18
PROVIDERS: ATTEND Internal Medicine Hematology
DX: M06.9 Rheumatoid arthritis, unspecified (principal); D61.818 Other pancytopenia
CPT/HCPCS: 36415; 82728; 83540; 83550; 85025

== ENCOUNTER → 2018-11-28 | Outpatient (CLI) | payer MEDICARE, BC ==
[2016-01-11 12:16] VITALS: BMI 31.5
== END ==
LOC: LAB 11:33
PROVIDERS: ATTEND Internal Medicine Rheumatology
DX: Z79.899 Other long term (current) drug therapy (principal); M05.79 Rheumatoid arthritis with rheumatoid factor of multiple sites without organ or systems involvement
CPT/HCPCS: 82565; 84450; 85651

== ENCOUNTER → 2018-12-28 | Outpatient (CLI) | payer MEDICARE, BC ==
[2016-01-11 12:16] VITALS: BMI 31.5
== END ==
LOC: LAB 10:25
PROVIDERS: ATTEND Internal Medicine Rheumatology
DX: M05.19 Rheumatoid lung disease with rheumatoid arthritis of multiple sites (principal); Z79.899 Other long term (current) drug therapy
CPT/HCPCS: 36415; 82565; 84450; 85027; 85651

== ENCOUNTER → 2018-12-28 | Outpatient (CLI) | payer MEDICARE, BC ==
[2016-01-11 12:16] VITALS: BMI 31.5
== END ==
LOC: LAB 10:25
PROVIDERS: ATTEND Family Medicine
DX: E03.9 Hypothyroidism, unspecified (principal)
CPT/HCPCS: 84443

== ENCOUNTER → 2019-01-11 | Outpatient (CLI) | payer MEDICARE, BC ==
[2016-01-11 12:16] VITALS: BMI 31.5
== END ==
LOC: US 03:49
PROVIDERS: ATTEND Internal Medicine Cardiovascular Disease
DX: I50.32 Chronic diastolic (congestive) heart failure (principal)
CPT/HCPCS: 93306